=== PATIENT | female | born 1990 | race African-American/Black ===

== ENCOUNTER → 2016-06-19 | Outpatient (CLI) | payer OTHER | LOC: M WUC 15:23 | PROVIDERS: ATTEND Advanced Practice Midwife | DX: N76.6 Ulceration of vulva (principal) ==

== ENCOUNTER 2016-07-20 19:40 | Emergency (ER) | payer OTHER ==
[2016-07-20] MEDS ORDERED: ONDANSETRON 4MG/2ML VIAL (J2405) As Ordered ONE (20:08)
[2016-07-20 20:27] LABS: BASO % 0.5 % (0.0-1.0); EOS # 0.1 K/mm3 (0.0-0.50); LARGE UNSTAINED CELL # 0.3 K/mm3 (0.0-0.4); LYMPH # 2.5 K/mm3 (1.5-6.5); LYMPH % 28.8 % (24.0-44.0); MEAN CORPUSCULAR HEMOGLOBIN 29.6 pg (27.0-33.0); MEAN CORPUSCULAR HGB CONC 32.8 g/dl (32.0-36.5); MEAN CORPUSCULAR VOLUME 90.5 fl (80.0-96.0); MONO # 0.4 K/mm3 (0.0-0.8); MONO % 5.1 % (0.0-5.0); NEUTROPHILS # 5.3 K/mm3 (1.8-7.7); NEUTROPHILS % 61.4 % (36.0-66.0); PLATELET COUNT, AUTOMATED 208 k/mm3 (150-450); RED CELL DISTRIBUTION WIDTH 13.2 % (11.5-14.5); WHITE BLOOD COUNT 8.6 K/mm3 (4.0-10.0)
[2016-07-20] MEDS ORDERED: KETOROLAC 30 MG/ML VIAL (J1885) As Ordered ONE (20:44)
[2016-07-20 20:51] LABS: ALBUMIN 3.5 GM/DL (3.2-5.2); ALBUMIN/GLOBULIN RATIO 1.06 (1.00-1.93); ALKALINE PHOSPHATASE 66 U/L (45-117); ALT/SGPT 20 U/L (12-78); AMYLASE 65 U/L (25-115); ANION GAP 8 MEQ/L (8-16); AST/SGOT 15 U/L (15-37); BILIRUBIN,DIRECT < 0.1 MG/DL (0.0-0.2); BILIRUBIN,TOTAL 0.2 MG/DL (0.2-1.0); BLOOD UREA NITROGEN 8 MG/DL (7-18); CARBON DIOXIDE LEVEL 28 MEQ/L (21-32); CHLORIDE LEVEL 106 MEQ/L (98-107); CREATININE FOR GFR 0.92 MG/DL (0.55-1.02); GLOMERULAR FILTRATION RATE > 60.0 (>60); GLUCOSE, FASTING 87 MG/DL (70-105); POTASSIUM SERUM 3.8 MEQ/L (3.5-5.1); SODIUM LEVEL 142 MEQ/L (136-145); TOTAL PROTEIN 6.8 GM/DL (6.4-8.2)
--- NOTE | 2016-07-20 22:10 | REPUSA ---
CT of the abdomen and pelvis without contrast Clinical statement: Pain. Technique: Multiple axial CT images were obtained from the base of the lungs to the floor of the pelv is utilizing 5 mm axial slices without administration of contrast. Coronal and sagittal reconstructio ns were also obtained. No comparison is available. Findings: Chest: The visualized lung bases are clear. Abdomen: The kidneys are normal in size bilaterally. There is moderate right-sided hydronephrosis cau sed by a 4 mm obstructing stone at the right ureteropelvic junction. The liver, spleen, pancreas, gal lbladder and adrenal glands are unremarkable. The aorta demonstrates normal caliber and contour. Ther e is no abdominal lymphadenopathy or ascites. Pelvis: The bowel is unremarkable, with no obstructive or inflammatory changes. The appendix is mary l. The urinary bladder is within normal limits. There is no pelvic lymphadenopathy or ascites. The ot her pelvic structures appear unremarkable. Bones: There are no suspicious osseous abnormalities seen. Impression: Mild right-sided hydronephrosis caused by a 4 mm obstructing stone at the right ureterope lvic junction.
[2016-07-20] MEDS ORDERED: NORCO 5/325MG TABLET (BULK) As Ordered ONE (22:50)
--- NOTE | 2016-07-20 23:08 | EDDOCDS ---
Physician Documentation [facility] Name: Chen Mortensen Age: 26 yrs Sex: Female : 1990 Arrival Date: 07/20/2016 Time: 19:40 Bed I5 / M5 Private MD: Madison Disposition: 07/20/16 22:44 Discharged to Home/Self Care. Impression: Hydronephrosis with renal and ureteral calculous obstruction - right 4mm UPJ stone with mild hydronephrosis. - Condition is Stable. - Discharge Instructions: Kidney Stones. - Prescriptions for Ibuprofen 800 mg Oral Tablet - take 1 tablet by ORAL route every 8 hours As needed take with food; 30 tablet. [place] 5- 325 mg Oral Tablet - take 1 tablet by ORAL route every 6 hours As needed MDD: 4 tabs; 16 tablet. Flomax 0.4 mg Oral Capsule, Sust. Release 24 hr - take 1 capsule by ORAL route once daily 1/2 hour following the same meal each day; 15 capsule. ZOFRAN ODT 4 mg Oral - dissolve 1 tablet by ORAL route every 8 hours As needed do not chew, do not swallow whole; 10 tablet. - Medication Reconciliation, Local Pharmacy Hours form. - Follow up: Joycelyn Nunn MD; When: Call to arrange an appointment; Reason: Recheck today's complaints, Continuance of care. Follow up: Emergency Department; When: As needed; Reason: Worsening of conditions. - Problem is new. - Symptoms have improved. - Notes: call saturday for follow up appointment. drink plenty of fluids Historical: - Allergies: No known drug Allergies; - Home Meds: 1. control - PMHx: none; - PSHx: ; - Social history: Smoking status: Patient states was never smoker of tobacco. No barriers to communication noted, The patient speaks fluent Ugandan, Speaks appropriately for age. - Family history: Not pertinent. - : The pt / caregiver states he / she is not on anticoagulants. Home medication list is obtained from the patient. - Exposure Risk Screening:: None identified. 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 11 in. (149.86 cm) (R); Pain 9/10; 23:05 BP 112 / 71; Pulse 74; Resp 16; Temp 97.8; Pulse Ox 100% on R/A; Pain 2/10; ld5 19:42 Body Mass Index 23.83 (53.52 kg, 149.86 cm) gr2 MDM: 19:57 UCG by Nursing ordered. cz 19:58 Urinalysis Ordered. EDMS 19:58 Urine Culture Ordered. EDMS 20:03 Undress patient appropriately for examination ordered. ar2 20:03 IV Saline Lock ordered. ar2 20:03 Ondansetron 4 mg IVP once ordered. ar2 20:05 Amylase Ordered. EDMS 20:05 Basic Metabolic Profile Ordered. EDMS 20:05 CBC with Diff Ordered. EDMS 20:05 Lipase Ordered. EDMS 20:05 Liver Profile Ordered. EDMS 20:06 NOTHING BY MOUTH+DIET ordered. EDMS 20:42 ketorolac 30 mg IVP once ordered. ar2 20:52 Urinalysis Reviewed. ar2 20:52 CBC with Diff Reviewed. ar2 20:52 Amylase Reviewed. ar2 20:52 Basic Metabolic Profile Reviewed. ar2 20:52 Lipase Reviewed. ar2 20:52 Liver Profile Reviewed. ar2 20:53 NS 0.9% 1000 ml IV at bolus once ordered. ar2 20:53 CT ABD & PELVIS: No Contrast Ordered. EDMS 21:48 Financial registration complete. zo 22:25 [facility] Payment Agreement was scanned into [employer] and attached to record. zo 22:42 Dispense Urine Strainer ordered. ar2 22:47 HYDROcodone-acetaminophen 4 pack- 5 mg-325 mg 1 packets PO Per package directions; ar2 Dispense with patient. 1 po q4h prn for pain ordered. 22:48 CT ABD & PELVIS: No Contrast Reviewed. ar2 Point of Care Testing: Urine : 20:16 hCG Reading: Negative; Control Reading: Positive; cln Ranges: Administered Medications: 20:24 Drug: Ondansetron 4 mg [ondansetron HCl 2 mg/mL intravenous solution (2 mL)] Route: ld5 IVP; Site: left antecubital; 23:05 Follow up: Response: Nausea is decreased ld5 20:48 Drug: ketorolac 30 mg [ketorolac 30 mg/mL (1 mL) injection solution (1 mL)] Route: IVP; ld5 Site: left antecubital; 23:00 Follow up: Response: Med's dispensed home ld5 21:11 Drug: NS 0.9% 1000 ml [sodium chloride 0.9 % intravenous solution] Route: IV; Rate: ld5 bolus; Site: left antecubital; 22:59 Follow up: IV Status: Completed infusion; IV Intake: 1000ml ld5 22:59 Drug: HYDROcodone-acetaminophen 4 pack- 1 packets [hydrocodone 5 mg-acetaminophen 325 ld5 mg tablet (1 tabs)] {Co-Signature: [facility] (Nolvia Hurst RN).} Route: PO; 22:59 Follow up: Response: Med's dispensed home ld5 Signatures: Dispatcher [employer] Oleg Guardado RN RN cz Olin, Zoeann zo Robertshaw, Aaron, PA-C PA-Donny ar2 Alfreda Izaguirre RN RN ld5 Hafner, Jane, RN RN [facility] Nolvia Hurst RN [facility] The chart was reviewed and I authenticate all verbal orders and agree with the evaluation and treatment provided.Attachments: 22:25 [facility] Payment Agreement zo MTDD
--- NOTE | 2016-07-20 23:08 | EDDOCDS ---
Nurse's Notes [facility] Name: Chen Mortensen Age: 26 yrs Sex: Female : 1990 Arrival Date: 07/20/2016 Time: 19:40 Bed I5 / M5 Private MD: Madison Diagnosis: Hydronephrosis with renal and ureteral calculous obstruction-right 4mm UPJ stone with mild hydronephrosis Presentation: 07/20 19:50 Presenting complaint: Patient states: stomach pain since earlier today pain back side cz and worse now pt denies UTI symptoms. Acute neurological deficits are not present. Mechanism of Injury: No Mechanism of Injury. Adult Sepsis Screening: The patient does not have new or worsening altered mentation. Patient's respiratory rate is less than 22. Systolic blood pressure is greater than 100. Patient has a qSOFA score of 0- Negative Sepsis Screen. Suicide/Homicide risk assessment- the patient denies having any suicidal and/or homicidal ideations and does not present with any other emotional, behavioral or mental health complaints. Status: The patient is a dependent. Transition of care: patient was not received from another setting of care. 19:50 Acuity: JULIA Level 3 cz 19:50 Method Of Arrival: Walkin/Carried/Asstd cz Triage Assessment: 19:52 General: Appears uncomfortable. Pain: Location: back Pain currently is 8 out of 10 on a cz pain scale. Pt Declines HIV testing. 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 control - PMHx: none; - PSHx: ; - Social history: Smoking status: Patient states was never smoker of tobacco. No barriers to communication noted, The patient speaks fluent Upper Sorbian, Speaks appropriately for age. - Family history: Not pertinent. - : The pt / caregiver states he / she is not on anticoagulants. Home medication list is obtained from the patient. - Exposure Risk Screening:: None identified. Screenin:29 Screening information is obtained from the patient. Fall risk: No risks identified. cjh Assistance ADL's: requires no assistance with activities of daily living. Abuse/DV Screen: The patient / caregiver reports he/she is: not in a situation that causes fear, pain or injury. Nutritional screening: No deficits noted. Advance Directives: There is no active DNR order. home support is adequate. Assessment: 20:29 General: Appears in no apparent distress, comfortable, Behavior is appropriate for age, cjh cooperative. Pain: Location: posterior aspect of right lateral abdomen and anterior aspect of right lateral abdomen Pain currently is 8 out of 10 on a pain scale. Respiratory: Airway is patent Respiratory effort is even, unlabored, Respiratory pattern is regular, symmetrical. GI: Abdomen is non- distended Bowel sounds present X 4 quads. Abd is soft and non tender X 4 quads. Musculoskeletal: Range of motion intact in all extremities. 21:10 General: Pt laying in bed talking on phone. States "I feel so much better". Bolus ld5 started per orders. Will continue to monitor. 21:53 General: returned from CT, tolerated well, awaiting results, friends at bedside, will [facility] continue to monitor. 22:36 General: Pt ambulated to bathroom. Tolerated well. Reports minimal pain. Resting ld5 comfortably in bed. Friends at bedside. Will continue to monitor. 23:05 General: Appears in no apparent distress, Behavior is cooperative. Pain: Pain currently ld5 is 2 out of 10 on a pain scale. Neurological: Level of Consciousness is awake, alert. Respiratory: Airway is patent Respiratory effort is even, unlabored. Vital Signs: 19:42 BP 107 / 71; Pulse 72; Resp 18 S; Temp 97.9(O); Pulse Ox 99% on R/A; Weight 53.52 kg gr2 (R); Height 4 ft. 11 in. (149.86 cm) (R); Pain 9/10; 23:05 BP 112 / 71; Pulse 74; Resp 16; Temp 97.8; Pulse Ox 100% on R/A; Pain 2/10; ld5 19:42 Body Mass Index 23.83 (53.52 kg, 149.86 cm) gr2 Vitals: 19:42 Log In Time: July 20, 2016 at 19:42. gr2 ED Course: 19:42 Patient visited by Albina Brock. gr2 19:42 Madison is Private Physician. gr2 19:42 Patient moved to Waiting gr2 19:44 Patient visited by Albina Brock. gr2 19:44 Patient moved to Pre RCE gr2 19:51 Triage Initiated cz 19:55 [facility] Lion [facility] ar2 19:55 Patient moved to Triage 2 cz 19:56 Matthew Posada DO is Attending Physician. ar2 19:56 Patient visited by Trino Lion PA-C. ar2 20:06 Patient moved to I5 / M5 cz 20:16 Patient visited by Latha Shah PCA. cln 20:16 Urinalysis Sent. cln 20:16 Urine Culture Sent. cln 20:29 The patient / caregiver is instructed regarding the plan of care and ED course. [facility] 20:29 Inserted saline lock: 20 gauge in left antecubital area and blood collected. No [facility] procedures done that require assistance. Labs drawn. (by ED staff). Sent per order to lab. 20:48 Patient visited by Alfreda Izaguirre RN. ld5 21:11 Patient visited by Alfreda Izaguirre RN. ld5 21:54 Patient visited by Nolvia Hurst RN. cjh 22:12 CT ABD & PELVIS: No Contrast Returned. EDMS 22:25 [facility] Payment Agreement was scanned into [employer] and attached to record. zo 22:37 Patient visited by Alfreda Izaguirre RN. ld5 22:43 Joycelyn Nunn MD is Referral Physician. ar2 23:05 Discontinued lock intact, bleeding controlled, pressure dressing applied, No ld5 redness/swelling at site. 23:07 Patient visited by Alfreda Izaguirre RN. ld5 Administered Medications: 20:24 Drug: Ondansetron 4 mg [ondansetron HCl 2 mg/mL intravenous solution (2 mL)] Route: ld5 IVP; Site: left antecubital; 23:05 Follow up: Response: Nausea is decreased ld5 20:48 Drug: ketorolac 30 mg [ketorolac 30 mg/mL (1 mL) injection solution (1 mL)] Route: IVP; ld5 Site: left antecubital; 23:00 Follow up: Response: Med's dispensed home ld5 21:11 Drug: NS 0.9% 1000 ml [sodium chloride 0.9 % intravenous solution] Route: IV; Rate: ld5 bolus; Site: left antecubital; 22:59 Follow up: IV Status: Completed infusion; IV Intake: 1000ml ld5 22:59 Drug: HYDROcodone-acetaminophen 4 pack- 1 packets [hydrocodone 5 mg-acetaminophen 325 ld5 mg tablet (1 tabs)] {Co-Signature: [facility] (Nolvia Hurst RN).} Route: PO; 22:59 Follow up: Response: Med's dispensed home ld5 Point of Care Testing: Urine : 20:16 hCG Reading: Negative; Control Reading: Positive; cln Ranges: Intake: 22:59 IV: 1000.00ml; Total: 1000.00ml. ld5 Order Results: Lab Order: Urinalysis; SPEC'M 07/20/16 19:58 Test: APPEARANCE, URINE; Value: CLEAR; Range: CLEAR; Status: F Test: COLOR, URINE; Value: YELLOW; Range: YELLOW; Status: F Test: PH,URINE; Value: 8.0; Range: 5.0-9.0; Units: UNITS; Status: F Test: SPECIFIC GRAVITY URINE AUTO; Value: 1.018; Range: 1.002-1.035; Status: F Test: PROTEIN, URINE AUTO; Value: 1+; Range: NEGATIVE; Abnormal: Above high normal; Units: mg/dL; Status: F Test: GLUCOSE, URINE (UA) AUTO; Value: NEGATIVE; Range: NEGATIVE; Units: mg/dL; Status: F Test: KETONE, URINE AUTO; Value: NEGATIVE; Range: NEGATIVE; Units: mg/dL; Status: F Test: UROBILINOGEN, URINE AUTO; Value: 0.2; Range: 0.0-2.0; Units: mg/dL; Status: F Test: BILIRUBIN, URINE AUTO; Value: NEGATIVE; Range: NEGATIVE; Status: F Test: NITRITE, URINE AUTO; Value: NEGATIVE; Range: NEGATIVE; Status: F Test: LEUKOCYTE ESTERASE, URINE AUTO; Value: TRACE; Range: NEGATIVE; Abnormal: Above high normal; Status: F Test: BLOOD, URINE BLOOD; Value: 3+; Range: NEGATIVE; Abnormal: Above high normal; Status: F Test: WBC, URINE AUTO; Value: 13; Range: 0-3; Abnormal: Above high normal; Units: /HPF; Status: F Test: RBC, URINE AUTO; Value: TNTC; Range: 0-3; Abnormal: Above high normal; Units: /HPF; Status: F Test: BACTERIA, URINE AUTO; Value: 1+; Range: NEGATIVE; Abnormal: Above high normal; Status: F Test: SQUAMOUS EPITHELIAL CELL UR AU; Value: 1; Range: 0-6; Units: /HPF; Status: F Test: MUCUS, URINE; Value: SMALL; Range: NEGATIVE; Status: F Test: HYALINE CAST, URINE AUTO; Value: 0; Range: 0-1; Units: /LPF; Status: F Test: AMORPHOUS SEDIMENT; Value: SMALL; Range: NEGATIVE; Abnormal: Above high normal; Status: F Lab Order: Amylase; SPEC'M 07/20/16 20:19 Test: AMYLASE; Value: 65; Range: 25-115; Units: U/L; Status: F Lab Order: Basic Metabolic Profile; SPEC' 07/20/16 20:19 Test: GLUCOSE, FASTING; Value: 87; Range: 70-105; Units: MG/DL; Status: F Test: BLOOD UREA NITROGEN; Value: 8; Range: 7-18; Units: MG/DL; Status: F Test: CREATININE FOR GFR; Value: 0.92; Range: 0.55-1.02; Units: MG/DL; Status: F Test: GLOMERULAR FILTRATION RATE; Value: > 60.0; Range: >60; Status: F Test: SODIUM LEVEL; Value: 142; Range: 136-145; Units: MEQ/L; Status: F Test: POTASSIUM SERUM; Value: 3.8; Range: 3.5-5.1; Units: MEQ/L; Status: F Test: CHLORIDE LEVEL; Value: 106; Range: 98-107; Units: MEQ/L; Status: F Test: CARBON DIOXIDE LEVEL; Value: 28; Range: 21-32; Units: MEQ/L; Status: F Test: ANION GAP; Value: 8; Range: 8-16; Units: MEQ/L; Status: F Test: CALCIUM LEVEL; Value: 9.0; Range: 8.5-10.1; Units: MG/DL; Status: F Test Note: ; Units are mL/min/1.73 m2 Chronic Kidney Disease Staging per NKF: Stage I & II GFR >=60 Normal to Mildly Decreased Stage III GFR 30-59 Moderately Decreased Stage IV GFR 15-29 Severely Decreased Stage V GFR <15 Very Little GFR Left ESRD GFR <15 on BOOKKEEPING SERVICE SALES AGENT Lab Order: CBC with Diff; SPEC'M 07/20/16 20:19 Test: WHITE BLOOD COUNT; Value: 8.6; Range: 4.0-10.0; Units: K/mm3; Status: F Test: RED BLOOD COUNT; Value: 4.67; Range: 4.00-5.40; Units: M/mm3; Status: F Test: HEMOGLOBIN; Value: 13.8; Range: 12.0-16.0; Units: g/dl; Status: F Test: HEMATOCRIT; Value: 42.3; Range: 36.0-47.0; Units: %; Status: F Test: MEAN CORPUSCULAR VOLUME; Value: 90.5; Range: 80.0-96.0; Units: fl; Status: F Test: MEAN CORPUSCULAR HEMOGLOBIN; Value: 29.6; Range: 27.0-33.0; Units: pg; Status: F Test: MEAN CORPUSCULAR HGB CONC; Value: 32.8; Range: 32.0-36.5; Units: g/dl; Status: F Test: RED CELL DISTRIBUTION WIDTH; Value: 13.2; Range: 11.5-14.5; Units: %; Status: F Test: PLATELET COUNT, AUTOMATED; Value: 208; Range: 150-450; Units: k/mm3; Status: F Test: NEUTROPHILS %; Value: 61.4; Range: 36.0-66.0; Units: %; Status: F Test: LYMPH %; Value: 28.8; Range: 24.0-44.0; Units: %; Status: F Test: MONO %; Value: 5.1; Range: 0.0-5.0; Abnormal: Above high normal; Units: %; Status: F Test: EOS %; Value: 1.0; Range: 0.0-3.0; Units: %; Status: F Test: BASO %; Value: 0.5; Range: 0.0-1.0; Units: %; Status: F Test: LARGE UNSTAINED CELL %; Value: 3.0; Range: 0.0-4.0; Units: %; Status: F Test: NEUTROPHILS #; Value: 5.3; Range: 1.8-7.7; Units: K/mm3; Status: F Test: LYMPH #; Value: 2.5; Range: 1.5-6.5; Units: K/mm3; Status: F Test: MONO #; Value: 0.4; Range: 0.0-0.8; Units: K/mm3; Status: F Test: EOS #; Value: 0.1; Range: 0.0-0.50; Units: K/mm3; Status: F Test: BASO #; Value: 0.0; Range: 0.0-0.2; Units: K/mm3; Status: F Test: LARGE UNSTAINED CELL #; Value: 0.3; Range: 0.0-0.4; Units: K/mm3; Status: F Lab Order: Lipase; SPEC' 07/20/16 20:19 Test: LIPASE; Value: 96; Range: 73-393; Units: U/L; Status: F Lab Order: Liver Profile; [facility]' 07/20/16 20:19 Test: AST/SGOT; Value: 15; Range: 15-37; Units: U/L; Status: F Test: ALT/SGPT; Value: 20; Range: 12-78; Units: U/L; Status: F Test: ALKALINE PHOSPHATASE; Value: 66; Range: 45-117; Units: U/L; Status: F Test: BILIRUBIN,TOTAL; Value: 0.2; Range: 0.2-1.0; Units: MG/DL; Status: F Test: BILIRUBIN,DIRECT; Value: < 0.1; Range: 0.0-0.2; Units: MG/DL; Status: F Test: TOTAL PROTEIN; Value: 6.8; Range: 6.4-8.2; Units: GM/DL; Status: F Test: ALBUMIN; Value: 3.5; Range: 3.2-5.2; Units: GM/DL; Status: F Test: ALBUMIN/GLOBULIN RATIO; Value: 1.06; Range: 1.00-1.93; Status: F Radiology Order: CT ABD & PELVIS: No Contrast Test: CT ABD & PELVIS: No Contrast REASON FOR EXAMINATION: right renal colic; ; CT of the abdomen and pelvis without contrast; Clinical statement: Pain.; Technique: Multiple axial CT images were obtained from the base of the lungs to the floor of the pelv; is utilizing 5 mm axial slices without administration of contrast. Coronal and sagittal reconstructio; ns were also obtained.; No comparison is available.; Findings:; Chest: The visualized lung bases are clear.; Abdomen: The kidneys are normal in size bilaterally. There is moderate right-sided hydronephrosis cau; sed by a 4 mm obstructing stone at the right ureteropelvic junction. The liver, spleen, pancreas, gal; lbladder and adrenal glands are unremarkable. The aorta demonstrates normal caliber and contour. Ther; e is no abdominal lymphadenopathy or ascites.; Pelvis: The bowel is unremarkable, with no obstructive or inflammatory changes. The appendix is mary; l. The urinary bladder is within normal limits. There is no pelvic lymphadenopathy or ascites. The ot; her pelvic structures appear unremarkable.; Bones: There are no suspicious osseous abnormalities seen.; Impression: Mild right-sided hydronephrosis caused by a 4 mm obstructing stone at the right ureterope; lvic junction.; ; Outcome: 22:44 Discharge ordered by Provider. ar2 23:05 Discharge Assessment: Patient awake, alert and oriented x 3. No cognitive and/or ld5 functional deficits noted. Patient verbalized understanding of disposition instructions. patient administered narcotics - no. The following High Risk Discharge criteria are identified: None. Discharged to home ambulatory, with friend. Condition: stable. Discharge instructions given to patient, Instructed on discharge instructions, follow up and referral plans. medication usage, no driving heavy equipment, Demonstrated understanding of instructions, medications, Pt was receptive of discharge instructions/ teaching. Prescriptions given X 4. CT Study completed. Property :Personal belongings accompany Pt. 23:07 Patient left the ED. ld5 Signatures: Dispatcher [employer] EDMS Oleg Siddiqui, Krishna Jacobs RN, Aaron, RACHAEL CANO ar2 Alfreda Izaguirre RN RN ld5 Nolvia Hurst,DAVIDE RN [facility] Albina Brock gr2 Latha Shah, VACUUM CLEANER REPAIRER VACUUM CLEANER REPAIRER cln Nolvia Hurst RN [facility] MTDD
--- NOTE | 2016-07-23 00:08 | EDDOCDS ---
Physician Documentation [facility] Name: Chen Mortensen Age: 26 yrs Sex: Female : 1990 Arrival Date: 07/20/2016 Time: 19:40 Bed I5 / M5 Private MD: [place] Disposition: 07/20/16 22:44 Discharged to Home/Self Care. Impression: Hydronephrosis with renal and ureteral calculous obstruction - right 4mm UPJ stone with mild hydronephrosis. - Condition is Stable. - Discharge Instructions: Kidney Stones. - Prescriptions for Ibuprofen 800 mg Oral Tablet - take 1 tablet by ORAL route every 8 hours As needed take with food; 30 tablet. Transfer 5- 325 mg Oral Tablet - take 1 tablet by ORAL route every 6 hours As needed MDD: 4 tabs; 16 tablet. Flomax 0.4 mg Oral Capsule, Sust. Release 24 hr - take 1 capsule by ORAL route once daily 1/2 hour following the same meal each day; 15 capsule. ZOFRAN ODT 4 mg Oral - dissolve 1 tablet by ORAL route every 8 hours As needed do not chew, do not swallow whole; 10 tablet. - Medication Reconciliation, Local Pharmacy Hours form. - Follow up: Joycelyn Nunn MD; When: Call to arrange an appointment; Reason: Recheck today's complaints, Continuance of care. Follow up: Emergency Department; When: As needed; Reason: Worsening of conditions. - Problem is new. - Symptoms have improved. - Notes: call saturday for follow up appointment. drink plenty of fluids Historical: - Allergies: No known drug Allergies; - Home Meds: 1. control - PMHx: none; - PSHx: ; - Social history: Smoking status: Patient states was never smoker of tobacco. No barriers to communication noted, The patient speaks fluent [place], Speaks appropriately for age. - Family history: Not pertinent. - : The pt / caregiver states he / she is not on anticoagulants. Home medication list is obtained from the patient. - Exposure Risk Screening:: None identified. 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 11 in. (149.86 cm) (R); Pain 9/10; 23:05 BP 112 / 71; Pulse 74; Resp 16; Temp 97.8; Pulse Ox 100% on R/A; Pain 2/10; ld5 19:42 Body Mass Index 23.83 (53.52 kg, 149.86 cm) gr2 MDM: 19:57 UCG by Nursing ordered. cz 19:58 Urinalysis Ordered. EDMS 19:58 Urine Culture Ordered. EDMS 20:03 Undress patient appropriately for examination ordered. ar2 20:03 IV Saline Lock ordered. ar2 20:03 Ondansetron 4 mg IVP once ordered. ar2 20:05 Amylase Ordered. EDMS 20:05 Basic Metabolic Profile Ordered. EDMS 20:05 CBC with Diff Ordered. EDMS 20:05 Lipase Ordered. EDMS 20:05 Liver Profile Ordered. EDMS 20:06 NOTHING BY MOUTH+DIET ordered. EDMS 20:42 ketorolac 30 mg IVP once ordered. ar2 20:52 Urinalysis Reviewed. ar2 20:52 CBC with Diff Reviewed. ar2 20:52 Amylase Reviewed. ar2 20:52 Basic Metabolic Profile Reviewed. ar2 20:52 Lipase Reviewed. ar2 20:52 Liver Profile Reviewed. ar2 20:53 NS 0.9% 1000 ml IV at bolus once ordered. ar2 20:53 CT ABD & PELVIS: No Contrast Ordered. EDMS 21:48 Financial registration complete. zo 22:25 [facility] [place] [facility] Payment Agreement was scanned into [employer] and attached to record. zo 22:42 Dispense Urine Strainer ordered. ar2 22:47 HYDROcodone-acetaminophen 4 pack- 5 mg-325 mg 1 packets PO Per package directions; ar2 Dispense with patient. 1 po q4h prn for pain ordered. 22:48 CT ABD & PELVIS: No Contrast Reviewed. ar2 07/21 11:30 T-Sheet-- Draft Copy was scanned into [employer] and attached to record. gb 11:30 Radiology Report was scanned into [employer] and attached to record. gb Point of Care Testing: Urine : 07/20 20:16 hCG Reading: Negative; Control Reading: Positive; cln Ranges: Administered Medications: 20:24 Drug: Ondansetron 4 mg [ondansetron HCl 2 mg/mL intravenous solution (2 mL)] Route: ld5 IVP; Site: left antecubital; 23:05 Follow up: Response: Nausea is decreased ld5 20:48 Drug: ketorolac 30 mg [ketorolac 30 mg/mL (1 mL) injection solution (1 mL)] Route: IVP; ld5 Site: left antecubital; 23:00 Follow up: Response: Med's dispensed home ld5 21:11 Drug: NS 0.9% 1000 ml [sodium chloride 0.9 % intravenous solution] Route: IV; Rate: ld5 bolus; Site: left antecubital; 22:59 Follow up: IV Status: Completed infusion; IV Intake: 1000ml ld5 22:59 Drug: HYDROcodone-acetaminophen 4 pack- 1 packets [hydrocodone 5 mg-acetaminophen 325 ld5 mg tablet (1 tabs)] {Co-Signature: [facility] (Nolvia Hurst RN).} Route: PO; 22:59 Follow up: Response: Med's dispensed home ld5 Signatures: Dispatcher [employer] EDMS Oleg Siddiqui RN RN cz Mary Morton, Reg Reg gb Krishna Reilly Aaron, PA-C PA-C ar2 Alfreda Izaguirre RN RN [facility] Nolvia Hurst RN RN [facility] Nolvia Hurst RN [facility] The chart was reviewed and I authenticate all verbal orders and agree with the evaluation and treatment provided.Attachments: 22:25 [facility] Payment Agreement zo 07/21 11:30 T-Sheet-- Draft Copy gb Chart Complete MTDD
--- NOTE | 2016-07-23 00:08 | EDDOCDS ---
Physician Documentation [facility] Name: Chen Mortensen Age: 26 yrs Sex: Female : 1990 Arrival Date: 07/20/2016 Time: 19:40 Bed I5 / M5 Private MD: [place] Disposition: 07/20/16 22:44 Discharged to Home/Self Care. Impression: Hydronephrosis with renal and ureteral calculous obstruction - right 4mm UPJ stone with mild hydronephrosis. - Condition is Stable. - Discharge Instructions: Kidney Stones. - Prescriptions for Ibuprofen 800 mg Oral Tablet - take 1 tablet by ORAL route every 8 hours As needed take with food; 30 tablet. [place] 5- 325 mg Oral Tablet - take 1 tablet by ORAL route every 6 hours As needed MDD: 4 tabs; 16 tablet. Flomax 0.4 mg Oral Capsule, Sust. Release 24 hr - take 1 capsule by ORAL route once daily 1/2 hour following the same meal each day; 15 capsule. ZOFRAN ODT 4 mg Oral - dissolve 1 tablet by ORAL route every 8 hours As needed do not chew, do not swallow whole; 10 tablet. - Medication Reconciliation, Local Pharmacy Hours form. - Follow up: Joycelyn Nunn MD; When: Call to arrange an appointment; Reason: Recheck today's complaints, Continuance of care. Follow up: Emergency Department; When: As needed; Reason: Worsening of conditions. - Problem is new. - Symptoms have improved. - Notes: call saturday for follow up appointment. drink plenty of fluids Historical: - Allergies: No known drug Allergies; - Home Meds: 1. control - PMHx: none; - PSHx: ; - Social history: Smoking status: Patient states was never smoker of tobacco. No barriers to communication noted, The patient speaks fluent Syri[place], Speaks appropriately for age. - Family history: Not pertinent. - : The pt / caregiver states he / she is not on anticoagulants. Home medication list is obtained from the patient. - Exposure Risk Screening:: None identified. 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 11 in. (149.86 cm) (R); Pain 9/10; 23:05 BP 112 / 71; Pulse 74; Resp 16; Temp 97.8; Pulse Ox 100% on R/A; Pain 2/10; ld5 19:42 Body Mass Index 23.83 (53.52 kg, 149.86 cm) gr2 MDM: 19:57 UCG by Nursing ordered. cz 19:58 Urinalysis Ordered. EDMS 19:58 Urine Culture Ordered. EDMS 20:03 Undress patient appropriately for examination ordered. ar2 20:03 IV Saline Lock ordered. ar2 20:03 Ondansetron 4 mg IVP once ordered. ar2 20:05 Amylase Ordered. EDMS 20:05 Basic Metabolic Profile Ordered. EDMS 20:05 CBC with Diff Ordered. EDMS 20:05 Lipase Ordered. EDMS 20:05 Liver Profile Ordered. EDMS 20:06 NOTHING BY MOUTH+DIET ordered. EDMS 20:42 ketorolac 30 mg IVP once ordered. ar2 20:52 Urinalysis Reviewed. ar2 20:52 CBC with Diff Reviewed. ar2 20:52 Amylase Reviewed. ar2 20:52 Basic Metabolic Profile Reviewed. ar2 20:52 Lipase Reviewed. ar2 20:52 Liver Profile Reviewed. ar2 20:53 NS 0.9% 1000 ml IV at bolus once ordered. ar2 20:53 CT ABD & PELVIS: No Contrast Ordered. EDMS 21:48 Financial registration complete. zo 22:25 [facility] Payment Agreement was scanned into [employer] and attached to record. zo 22:42 Dispense Urine Strainer ordered. ar2 22:47 HYDROcodone-acetaminophen 4 pack- 5 mg-325 mg 1 packets PO Per package directions; ar2 Dispense with patient. 1 po q4h prn for pain ordered. 22:48 CT ABD & PELVIS: No Contrast Reviewed. ar2 07/21 11:30 T-Sheet-- Draft Copy was scanned into [employer] and attached to record. gb 11:30 Radiology Report was scanned into [employer] and attached to record. gb Point of Care Testing: Urine : 07/20 20:16 hCG Reading: Negative; Control Reading: Positive; cln Ranges: Administered Medications: 20:24 Drug: Ondansetron 4 mg [ondansetron HCl 2 mg/mL intravenous solution (2 mL)] Route: ld5 IVP; Site: left antecubital; 23:05 Follow up: Response: Nausea is decreased ld5 20:48 Drug: ketorolac 30 mg [ketorolac 30 mg/mL (1 mL) injection solution (1 mL)] Route: IVP; ld5 Site: left antecubital; 23:00 Follow up: Response: Med's dispensed home ld5 21:11 Drug: NS 0.9% 1000 ml [sodium chloride 0.9 % intravenous solution] Route: IV; Rate: ld5 bolus; Site: left antecubital; 22:59 Follow up: IV Status: Completed infusion; IV Intake: 1000ml ld5 22:59 Drug: HYDROcodone-acetaminophen 4 pack- 1 packets [hydrocodone 5 mg-acetaminophen 325 ld5 mg tablet (1 tabs)] {Co-Signature: [facility] (Nolvia Hurst RN).} Route: PO; 22:59 Follow up: Response: Med's dispensed home ld5 Signatures: Dispatcher [employer] EDMS Oleg iSddiqui RN RN cz Mary Morton, Reg Reg gb Krishna Reilly Aaron, PA-C PA-C ar2 Alfreda Izaguirre RN RN [facility] Nolvia Hurst RN RN [facility] Nolvia Hurst RN [facility] The chart was reviewed and I authenticate all verbal orders and agree with the evaluation and treatment provided.Attachments: 22:25 [facility] Payment Agreement zo 07/21 11:30 T-Sheet-- Draft Copy gb Chart Complete MTDD
--- NOTE | 2016-07-23 00:08 | EDDOCDS ---
Nurse's Notes [facility] Name: Chen Mortensen Age: 26 yrs Sex: Female : 1990 Arrival Date: 07/20/2016 Time: 19:40 Bed I5 / M5 Private MD: Madison Diagnosis: Hydronephrosis with renal and ureteral calculous obstruction-right 4mm UPJ stone with mild hydronephrosis Presentation: 07/20 19:50 Presenting complaint: Patient states: stomach pain since earlier today pain back side cz and worse now pt denies UTI symptoms. Acute neurological deficits are not present. Mechanism of Injury: No Mechanism of Injury. Adult Sepsis Screening: The patient does not have new or worsening altered mentation. Patient's respiratory rate is less than 22. Systolic blood pressure is greater than 100. Patient has a qSOFA score of 0- Negative Sepsis Screen. Suicide/Homicide risk assessment- the patient denies having any suicidal and/or homicidal ideations and does not present with any other emotional, behavioral or mental health complaints. Status: The patient is a dependent. Transition of care: patient was not received from another setting of care. 19:50 Acuity: JULIA Level 3 cz 19:50 Method Of Arrival: Walkin/Carried/Asstd cz Triage Assessment: 19:52 General: Appears uncomfortable. Pain: Location: back Pain currently is 8 out of 10 on a cz pain scale. Pt Declines HIV testing. 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 control - PMHx: none; - PSHx: ; - Social history: Smoking status: Patient states was never smoker of tobacco. No barriers to communication noted, The patient speaks fluent Greenlandic, Speaks appropriately for age. - Family history: Not pertinent. - : The pt / caregiver states he / she is not on anticoagulants. Home medication list is obtained from the patient. - Exposure Risk Screening:: None identified. Screenin:29 Screening information is obtained from the patient. Fall risk: No risks identified. cjh Assistance ADL's: requires no assistance with activities of daily living. Abuse/DV Screen: The patient / caregiver reports he/she is: not in a situation that causes fear, pain or injury. Nutritional screening: No deficits noted. Advance Directives: There is no active DNR order. home support is adequate. Assessment: 20:29 General: Appears in no apparent distress, comfortable, Behavior is appropriate for age, cjh cooperative. Pain: Location: posterior aspect of right lateral abdomen and anterior aspect of right lateral abdomen Pain currently is 8 out of 10 on a pain scale. Respiratory: Airway is patent Respiratory effort is even, unlabored, Respiratory pattern is regular, symmetrical. GI: Abdomen is non- distended Bowel sounds present X 4 quads. Abd is soft and non tender X 4 quads. Musculoskeletal: Range of motion intact in all extremities. 21:10 General: Pt laying in bed talking on phone. States "I feel so much better". Bolus ld5 started per orders. Will continue to monitor. 21:53 General: returned from CT, tolerated well, awaiting results, friends at bedside, will [facility] continue to monitor. 22:36 General: Pt ambulated to bathroom. Tolerated well. Reports minimal pain. Resting ld5 comfortably in bed. Friends at bedside. Will continue to monitor. 23:05 General: Appears in no apparent distress, Behavior is cooperative. Pain: Pain currently ld5 is 2 out of 10 on a pain scale. Neurological: Level of Consciousness is awake, alert. Respiratory: Airway is patent Respiratory effort is even, unlabored. Vital Signs: 19:42 BP 107 / 71; Pulse 72; Resp 18 S; Temp 97.9(O); Pulse Ox 99% on R/A; Weight 53.52 kg gr2 (R); Height 4 ft. 11 in. (149.86 cm) (R); Pain 9/10; 23:05 BP 112 / 71; Pulse 74; Resp 16; Temp 97.8; Pulse Ox 100% on R/A; Pain 2/10; ld5 19:42 Body Mass Index 23.83 (53.52 kg, 149.86 cm) gr2 Vitals: 19:42 Log In Time: July 20, 2016 at 19:42. gr2 ED Course: 19:42 Patient visited by Albina Brock. gr2 19:42 Madison is Private Physician. gr2 19:42 Patient moved to Waiting gr2 19:44 Patient visited by Albina Brock. gr2 19:44 Patient moved to Pre RCE gr2 19:51 Triage Initiated cz 19:55 [facility] ar2 19:55 Patient moved to Triage 2 cz 19:56 Matthew Posada DO is Attending Physician. ar2 19:56 Patient visited by Trino Lion PA-C. ar2 20:06 Patient moved to I5 / M5 cz 20:16 Patient visited by Latha Shah PCA. cln 20:16 Urinalysis Sent. cln 20:16 Urine Culture Sent. cln 20:29 The patient / caregiver is instructed regarding the plan of care and ED course. [facility] 20:29 Inserted saline lock: 20 gauge in left antecubital area and blood collected. No [facility] procedures done that require assistance. Labs drawn. (by ED staff). Sent per order to lab. 20:48 Patient visited by Alfreda Izaguirre RN. ld5 21:11 Patient visited by Alfreda Izaguirre RN. ld5 21:54 Patient visited by Nolvia Hurst RN. cjh 22:12 CT ABD & PELVIS: No Contrast Returned. EDMS 22:25 [facility] [place] Agreement was scanned into Wish[employer] and attached to record. zo 22:37 Patient visited by Alfreda Izaguirre RN. ld5 22:43 Joycelyn Nunn MD is Referral Physician. ar2 23:05 Discontinued lock intact, bleeding controlled, pressure dressing applied, No ld5 redness/swelling at site. 23:07 Patient visited by Alfreda Izaguirre RN. ld5 07/21 11:30 T-Sheet-- Draft Copy was scanned into Wishabi and attached to record. gb 11:30 Radiology Report was scanned into Wishabi and attached to record. gb Administered Medications: 07/20 20:24 Drug: Ondansetron 4 mg [ondansetron HCl 2 mg/mL intravenous solution (2 mL)] Route: ld5 IVP; Site: left antecubital; 23:05 Follow up: Response: Nausea is decreased ld5 20:48 Drug: ketorolac 30 mg [ketorolac 30 mg/mL (1 mL) injection solution (1 mL)] Route: IVP; ld5 Site: left antecubital; 23:00 Follow up: Response: Med's dispensed home ld5 21:11 Drug: NS 0.9% 1000 ml [sodium chloride 0.9 % intravenous solution] Route: IV; Rate: ld5 bolus; Site: left antecubital; 22:59 Follow up: IV Status: Completed infusion; IV Intake: 1000ml ld5 22:59 Drug: HYDROcodone-acetaminophen 4 pack- 1 packets [hydrocodone 5 mg-acetaminophen 325 ld5 mg tablet (1 tabs)] {Co-Signature: [facility] (Nolvia Hurst RN).} Route: PO; 22:59 Follow up: Response: Med's dispensed home ld5 Point of Care Testing: Urine : 20:16 hCG Reading: Negative; Control Reading: Positive; cln Ranges: Intake: 22:59 IV: 1000.00ml; Total: 1000.00ml. ld5 Order Results: Lab Order: Urine Culture; SPEC'M 07/20/16 19:58 Test: URINE CULTURE; Value: <EXTERNAL COMMENT eCWMed> FULL REPORT IN LAB NOTES (eCW and Medent).; Status: F Test: URINE CULTURE; Value: ORGANISM 1: PROTEUS MIRABILIS; Status: F Test: URINE CULTURE; Value: PROTEUS MIRABILIS; Status: F Test: URINE CULTURE; Value: COLONY COUNT CFU/ml >100,000; Status: F Test: URINE CULTURE; Value: GRAM NEG SENSI - VITEK 80; Status: F Test: URINE CULTURE; Value: Method: VIT2; Status: F Test: URINE CULTURE; Value: TRIMETHOPRIM/SULFAMETHOXAZOLE >=320 R; Status: F Test: URINE CULTURE; Value: AMPICILLIN <=2 S; Status: F Test: URINE CULTURE; Value: GENTAMICIN <=1 S; Status: F Test: URINE CULTURE; Value: NITROFURANTOIN 128 R; Status: F Test: URINE CULTURE; Value: CEFAZOLIN <=4 S; Status: F Test: URINE CULTURE; Value: LEVOFLOXACIN <=0.12 S; Status: F Test: URINE CULTURE; Value: TOBRAMYCIN <=1 S; Status: F Test: URINE CULTURE; Value: CEFTRIAXONE <=1 S; Status: F Test: URINE CULTURE; Value: CEFTAZIDIME <=1 S; Status: F Test: URINE CULTURE; Value: AMPICILLIN/SULBACTAM <=2 S; Status: F Test: URINE CULTURE; Value: PIPERACILLIN/TAZOBACTAM <=4 S; Status: F Test: URINE CULTURE; Value: AZTREONAM <=1 S; Status: F Test: URINE CULTURE; Value: ERTAPENEM <=0.5 S; Status: F Test: URINE CULTURE; Value: MEROPENEM <=0.25 S; Status: F Test: URINE CULTURE; Value: TIGECYCLINE 4 R; Status: F Test: URINE CULTURE; Value: CEFEPIME <=1 S; Status: F Lab Order: Urinalysis; SPEC'M 07/20/16 19:58 Test: APPEARANCE, URINE; Value: CLEAR; Range: CLEAR; Status: F Test: COLOR, URINE; Value: YELLOW; Range: YELLOW; Status: F Test: PH,URINE; Value: 8.0; Range: 5.0-9.0; Units: UNITS; Status: F Test: SPECIFIC GRAVITY URINE AUTO; Value: 1.018; Range: 1.002-1.035; Status: F Test: PROTEIN, URINE AUTO; Value: 1+; Range: NEGATIVE; Abnormal: Above high normal; Units: mg/dL; Status: F Test: GLUCOSE, URINE (UA) AUTO; Value: NEGATIVE; Range: NEGATIVE; Units: mg/dL; Status: F Test: KETONE, URINE AUTO; Value: NEGATIVE; Range: NEGATIVE; Units: mg/dL; Status: F Test: UROBILINOGEN, URINE AUTO; Value: 0.2; Range: 0.0-2.0; Units: mg/dL; Status: F Test: BILIRUBIN, URINE AUTO; Value: NEGATIVE; Range: NEGATIVE; Status: F Test: NITRITE, URINE AUTO; Value: NEGATIVE; Range: NEGATIVE; Status: F Test: LEUKOCYTE ESTERASE, URINE AUTO; Value: TRACE; Range: NEGATIVE; Abnormal: Above high normal; Status: F Test: BLOOD, URINE BLOOD; Value: 3+; Range: NEGATIVE; Abnormal: Above high normal; Status: F Test: WBC, URINE AUTO; Value: 13; Range: 0-3; Abnormal: Above high normal; Units: /HPF; Status: F Test: RBC, URINE AUTO; Value: TNTC; Range: 0-3; Abnormal: Above high normal; Units: /HPF; Status: F Test: BACTERIA, URINE AUTO; Value: 1+; Range: NEGATIVE; Abnormal: Above high normal; Status: F Test: SQUAMOUS EPITHELIAL CELL UR AU; Value: 1; Range: 0-6; Units: /HPF; Status: F Test: MUCUS, URINE; Value: SMALL; Range: NEGATIVE; Status: F Test: HYALINE CAST, URINE AUTO; Value: 0; Range: 0-1; Units: /LPF; Status: F Test: AMORPHOUS SEDIMENT; Value: SMALL; Range: NEGATIVE; Abnormal: Above high normal; Status: F Lab Order: Amylase; SPEC'07/20/16 20:19 Test: AMYLASE; Value: 65; Range: 25-115; Units: U/L; Status: F Lab Order: Basic Metabolic Profile; SPEC'07/20/16 20:19 Test: GLUCOSE, FASTING; Value: 87; Range: 70-105; Units: MG/DL; Status: F Test: BLOOD UREA NITROGEN; Value: 8; Range: 7-18; Units: MG/DL; Status: F Test: CREATININE FOR GFR; Value: 0.92; Range: 0.55-1.02; Units: MG/DL; Status: F Test: GLOMERULAR FILTRATION RATE; Value: > 60.0; Range: >60; Status: F Test: SODIUM LEVEL; Value: 142; Range: 136-145; Units: MEQ/L; Status: F Test: POTASSIUM SERUM; Value: 3.8; Range: 3.5-5.1; Units: MEQ/L; Status: F Test: CHLORIDE LEVEL; Value: 106; Range: 98-107; Units: MEQ/L; Status: F Test: CARBON DIOXIDE LEVEL; Value: 28; Range: 21-32; Units: MEQ/L; Status: F Test: ANION GAP; Value: 8; Range: 8-16; Units: MEQ/L; Status: F Test: CALCIUM LEVEL; Value: 9.0; Range: 8.5-10.1; Units: MG/DL; Status: F Test Note: ; Units are mL/min/1.73 m2 Chronic Kidney Disease Staging per NKF: Stage I & II GFR >=60 Normal to Mildly Decreased Stage III GFR 30-59 Moderately Decreased Stage IV GFR 15-29 Severely Decreased Stage V GFR <15 Very Little GFR Left ESRD GFR <15 on AERIAL ERECTOR Lab Order: CBC with Diff; SPEC'07/20/16 20:19 Test: WHITE BLOOD COUNT; Value: 8.6; Range: 4.0-10.0; Units: K/mm3; Status: F Test: RED BLOOD COUNT; Value: 4.67; Range: 4.00-5.40; Units: M/mm3; Status: F Test: HEMOGLOBIN; Value: 13.8; Range: 12.0-16.0; Units: g/dl; Status: F Test: HEMATOCRIT; Value: 42.3; Range: 36.0-47.0; Units: %; Status: F Test: MEAN CORPUSCULAR VOLUME; Value: 90.5; Range: 80.0-96.0; Units: fl; Status: F Test: MEAN CORPUSCULAR HEMOGLOBIN; Value: 29.6; Range: 27.0-33.0; Units: pg; Status: F Test: MEAN CORPUSCULAR HGB CONC; Value: 32.8; Range: 32.0-36.5; Units: g/dl; Status: F Test: RED CELL DISTRIBUTION WIDTH; Value: 13.2; Range: 11.5-14.5; Units: %; Status: F Test: PLATELET COUNT, AUTOMATED; Value: 208; Range: 150-450; Units: k/mm3; Status: F Test: NEUTROPHILS %; Value: 61.4; Range: 36.0-66.0; Units: %; Status: F Test: LYMPH %; Value: 28.8; Range: 24.0-44.0; Units: %; Status: F Test: MONO %; Value: 5.1; Range: 0.0-5.0; Abnormal: Above high normal; Units: %; Status: F Test: EOS %; Value: 1.0; Range: 0.0-3.0; Units: %; Status: F Test: BASO %; Value: 0.5; Range: 0.0-1.0; Units: %; Status: F Test: LARGE UNSTAINED CELL %; Value: 3.0; Range: 0.0-4.0; Units: %; Status: F Test: NEUTROPHILS #; Value: 5.3; Range: 1.8-7.7; Units: K/mm3; Status: F Test: LYMPH #; Value: 2.5; Range: 1.5-6.5; Units: K/mm3; Status: F Test: MONO #; Value: 0.4; Range: 0.0-0.8; Units: K/mm3; Status: F Test: EOS #; Value: 0.1; Range: 0.0-0.50; Units: K/mm3; Status: F Test: BASO #; Value: 0.0; Range: 0.0-0.2; Units: K/mm3; Status: F Test: LARGE UNSTAINED CELL #; Value: 0.3; Range: 0.0-0.4; Units: K/mm3; Status: F Lab Order: Lipase; SPEC' 07/20/16 20:19 Test: LIPASE; Value: 96; Range: 73-393; Units: U/L; Status: F Lab Order: Liver Profile; SPEC' 07/20/16 20:19 Test: AST/SGOT; Value: 15; Range: 15-37; Units: U/L; Status: F Test: ALT/SGPT; Value: 20; Range: 12-78; Units: U/L; Status: F Test: ALKALINE PHOSPHATASE; Value: 66; Range: 45-117; Units: U/L; Status: F Test: BILIRUBIN,TOTAL; Value: 0.2; Range: 0.2-1.0; Units: MG/DL; Status: F Test: BILIRUBIN,DIRECT; Value: < 0.1; Range: 0.0-0.2; Units: MG/DL; Status: F Test: TOTAL PROTEIN; Value: 6.8; Range: 6.4-8.2; Units: GM/DL; Status: F Test: ALBUMIN; Value: 3.5; Range: 3.2-5.2; Units: GM/DL; Status: F Test: ALBUMIN/GLOBULIN RATIO; Value: 1.06; Range: 1.00-1.93; Status: F Radiology Order: CT ABD & PELVIS: No Contrast Test: CT ABD & PELVIS: No Contrast REASON FOR EXAMINATION: right renal colic; ; CT of the abdomen and pelvis without contrast; Clinical statement: Pain.; Technique: Multiple axial CT images were obtained from the base of the lungs to the floor of the pelv; is utilizing 5 mm axial slices without administration of contrast. Coronal and sagittal reconstructio; ns were also obtained.; No comparison is available.; Findings:; Chest: The visualized lung bases are clear.; Abdomen: The kidneys are normal in size bilaterally. There is moderate right-sided hydronephrosis cau; sed by a 4 mm obstructing stone at the right ureteropelvic junction. The liver, spleen, pancreas, gal; lbladder and adrenal glands are unremarkable. The aorta demonstrates normal caliber and contour. Ther; e is no abdominal lymphadenopathy or ascites.; Pelvis: The bowel is unremarkable, with no obstructive or inflammatory changes. The appendix is mary; l. The urinary bladder is within normal limits. There is no pelvic lymphadenopathy or ascites. The ot; her pelvic structures appear unremarkable.; Bones: There are no suspicious osseous abnormalities seen.; Impression: Mild right-sided hydronephrosis caused by a 4 mm obstructing stone at the right ureterope; lvic junction.; ; Outcome: 22:44 Discharge ordered by Provider. ar2 23:05 Discharge Assessment: Patient awake, alert and oriented x 3. No cognitive and/or ld5 functional deficits noted. Patient verbalized understanding of disposition instructions. patient administered narcotics - no. The following High Risk Discharge criteria are identified: None. Discharged to home ambulatory, with friend. Condition: stable. Discharge instructions given to patient, Instructed on discharge instructions, follow up and referral plans. medication usage, no driving heavy equipment, Demonstrated understanding of instructions, medications, Pt was receptive of discharge instructions/ teaching. Prescriptions given X 4. CT Study completed. Property :Personal belongings accompany Pt. 23:07 Patient left the ED. ld5 Signatures: Dispatcher Med[employer] EDMS Oleg Siddiqui, RN RN cz Mary Morton, Reg Reg Krishna Chavez Aaron, PA-C PA-C ar2 Alfreda Izaguirre RN RN ld5 Nolvia Hurst RN RN [facility] Albina Brock gr2 Latha Shah, MANAGER LOCAL MANAGER LOCAL cln Nolvia Hurst RN [facility] Chart Complete MTDD
--- NOTE | 2016-07-23 10:44 | EDDOCDS ---
Physician Documentation [facility] Name: Chen Mortensen Age: 26 yrs Sex: Female : 1990 Arrival Date: 07/20/2016 Time: 19:40 Bed I5 / M5 Private MD: Madison Disposition: 07/20/16 22:44 Discharged to Home/Self Care. Impression: Hydronephrosis with renal and ureteral calculous obstruction - right 4mm UPJ stone with mild hydronephrosis. - Condition is Stable. - Discharge Instructions: Kidney Stones. - Prescriptions for Ibuprofen 800 mg Oral Tablet - take 1 tablet by ORAL route every 8 hours As needed take with food; 30 tablet. [place] 5- 325 mg Oral Tablet - take 1 tablet by ORAL route every 6 hours As needed MDD: 4 tabs; 16 tablet. Flomax 0.4 mg Oral Capsule, Sust. Release 24 hr - take 1 capsule by ORAL route once daily 1/2 hour following the same meal each day; 15 capsule. ZOFRAN ODT 4 mg Oral - dissolve 1 tablet by ORAL route every 8 hours As needed do not chew, do not swallow whole; 10 tablet. - Medication Reconciliation, Local Pharmacy Hours form. - Follow up: Joycelyn Nunn MD; When: Call to arrange an appointment; Reason: Recheck today's complaints, Continuance of care. Follow up: Emergency Department; When: As needed; Reason: Worsening of conditions. - Problem is new. - Symptoms have improved. - Notes: call saturday for follow up appointment. drink plenty of fluids Historical: - Allergies: No known drug Allergies; - Home Meds: 1. control - PMHx: none; - PSHx: ; - Social history: Smoking status: Patient states was never smoker of tobacco. No barriers to communication noted, The patient speaks fluent Polish, Speaks appropriately for age. - Family history: Not pertinent. - : The pt / caregiver states he / she is not on anticoagulants. Home medication list is obtained from the patient. - Exposure Risk Screening:: None identified. 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 11 in. (149.86 cm) (R); Pain 9/10; 23:05 BP 112 / 71; Pulse 74; Resp 16; Temp 97.8; Pulse Ox 100% on R/A; Pain 2/10; ld5 19:42 Body Mass Index 23.83 (53.52 kg, 149.86 cm) gr2 MDM: 19:57 UCG by Nursing ordered. cz 19:58 Urinalysis Ordered. EDMS 19:58 Urine Culture Ordered. EDMS 20:03 Undress patient appropriately for examination ordered. ar2 20:03 IV Saline Lock ordered. ar2 20:03 Ondansetron 4 mg IVP once ordered. ar2 20:05 Amylase Ordered. EDMS 20:05 Basic Metabolic Profile Ordered. EDMS 20:05 CBC with Diff Ordered. EDMS 20:05 Lipase Ordered. EDMS 20:05 Liver Profile Ordered. EDMS 20:06 NOTHING BY MOUTH+DIET ordered. EDMS 20:42 ketorolac 30 mg IVP once ordered. ar2 20:52 Urinalysis Reviewed. ar2 20:52 CBC with Diff Reviewed. ar2 20:52 Amylase Reviewed. ar2 20:52 Basic Metabolic Profile Reviewed. ar2 20:52 Lipase Reviewed. ar2 20:52 Liver Profile Reviewed. ar2 20:53 NS 0.9% 1000 ml IV at bolus once ordered. ar2 20:53 CT ABD & PELVIS: No Contrast Ordered. EDMS 21:48 Financial registration complete. zo 22:25 [facility] [place] Payment Agreement was scanned into MyC[employer] and attached to record. zo 22:42 Dispense Urine Strainer ordered. ar2 22:47 HYDROcodone-acetaminophen 4 pack- 5 mg-325 mg 1 packets PO Per package directions; ar2 Dispense with patient. 1 po q4h prn for pain ordered. 22:48 CT ABD & PELVIS: No Contrast Reviewed. ar2 07/21 11:30 T-Sheet-- Draft Copy was scanned into MyCube and attached to record. gb 11:30 Radiology Report was scanned into MyC[employer] and attached to record. gb Point of Care Testing: Urine : 07/20 20:16 hCG Reading: Negative; Control Reading: Positive; cln Ranges: Administered Medications: 20:24 Drug: Ondansetron 4 mg [ondansetron HCl 2 mg/mL intravenous solution (2 mL)] Route: ld5 IVP; Site: left antecubital; 23:05 Follow up: Response: Nausea is decreased ld5 20:48 Drug: ketorolac 30 mg [ketorolac 30 mg/mL (1 mL) injection solution (1 mL)] Route: IVP; ld5 Site: left antecubital; 23:00 Follow up: Response: Med's dispensed home ld5 21:11 Drug: NS 0.9% 1000 ml [sodium chloride 0.9 % intravenous solution] Route: IV; Rate: ld5 bolus; Site: left antecubital; 22:59 Follow up: IV Status: Completed infusion; IV Intake: 1000ml ld5 22:59 Drug: HYDROcodone-acetaminophen 4 pack- 1 packets [hydrocodone 5 mg-acetaminophen 325 ld5 mg tablet (1 tabs)] {Co-Signature: [facility] (Nolvia Hurst RN).} Route: PO; 22:59 Follow up: Response: Med's dispensed home ld5 Signatures: Dispatcher [employer] EDMS Oleg Siddiqui RN RN cz Mary Morton, Reg Reg gb Krishna Reilly Aaron, PA-C PA-C ar2 Alfreda Izaguirre RN RN [facility] Nolvia Hurst RN RN [facility] Nolvia Hurst RN [facility] The chart was reviewed and I authenticate all verbal orders and agree with the evaluation and treatment provided.Attachments: 22:25 [facility] Payment Agreement zo 07/21 11:30 T-Sheet-- Draft Copy gb MTDD
--- NOTE | 2016-07-23 10:44 | EDDOCDS ---
Nurse's Notes [facility] Name: Chen Mortensen Age: 26 yrs Sex: Female : 1990 Arrival Date: 07/20/2016 Time: 19:40 Bed I5 / M5 Private MD: Madison Diagnosis: Hydronephrosis with renal and ureteral calculous obstruction-right 4mm UPJ stone with mild hydronephrosis Presentation: 07/20 19:50 Presenting complaint: Patient states: stomach pain since earlier today pain back side cz and worse now pt denies UTI symptoms. Acute neurological deficits are not present. Mechanism of Injury: No Mechanism of Injury. Adult Sepsis Screening: The patient does not have new or worsening altered mentation. Patient's respiratory rate is less than 22. Systolic blood pressure is greater than 100. Patient has a qSOFA score of 0- Negative Sepsis Screen. Suicide/Homicide risk assessment- the patient denies having any suicidal and/or homicidal ideations and does not present with any other emotional, behavioral or mental health complaints. Status: The patient is a dependent. Transition of care: patient was not received from another setting of care. 19:50 Acuity: JULIA Level 3 cz 19:50 Method Of Arrival: Walkin/Carried/Asstd cz Triage Assessment: 19:52 General: Appears uncomfortable. Pain: Location: back Pain currently is 8 out of 10 on a cz pain scale. Pt Declines HIV testing. 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 control - PMHx: none; - PSHx: ; - Social history: Smoking status: Patient states was never smoker of tobacco. No barriers to communication noted, The patient speaks fluent Mohawk, Speaks appropriately for age. - Family history: Not pertinent. - : The pt / caregiver states he / she is not on anticoagulants. Home medication list is obtained from the patient. - Exposure Risk Screening:: None identified. Screenin:29 Screening information is obtained from the patient. Fall risk: No risks identified. cjh Assistance ADL's: requires no assistance with activities of daily living. Abuse/DV Screen: The patient / caregiver reports he/she is: not in a situation that causes fear, pain or injury. Nutritional screening: No deficits noted. Advance Directives: There is no active DNR order. home support is adequate. Assessment: 20:29 General: Appears in no apparent distress, comfortable, Behavior is appropriate for age, cjh cooperative. Pain: Location: posterior aspect of right lateral abdomen and anterior aspect of right lateral abdomen Pain currently is 8 out of 10 on a pain scale. Respiratory: Airway is patent Respiratory effort is even, unlabored, Respiratory pattern is regular, symmetrical. GI: Abdomen is non- distended Bowel sounds present X 4 quads. Abd is soft and non tender X 4 quads. Musculoskeletal: Range of motion intact in all extremities. 21:10 General: Pt laying in bed talking on phone. States "I feel so much better". Bolus ld5 started per orders. Will continue to monitor. 21:53 General: returned from CT, tolerated well, awaiting results, friends at bedside, will [facility] continue to monitor. 22:36 General: Pt ambulated to bathroom. Tolerated well. Reports minimal pain. Resting ld5 comfortably in bed. Friends at bedside. Will continue to monitor. 23:05 General: Appears in no apparent distress, Behavior is cooperative. Pain: Pain currently ld5 is 2 out of 10 on a pain scale. Neurological: Level of Consciousness is awake, alert. Respiratory: Airway is patent Respiratory effort is even, unlabored. Vital Signs: 19:42 BP 107 / 71; Pulse 72; Resp 18 S; Temp 97.9(O); Pulse Ox 99% on R/A; Weight 53.52 kg gr2 (R); Height 4 ft. 11 in. (149.86 cm) (R); Pain 9/10; 23:05 BP 112 / 71; Pulse 74; Resp 16; Temp 97.8; Pulse Ox 100% on R/A; Pain 2/10; ld5 19:42 Body Mass Index 23.83 (53.52 kg, 149.86 cm) gr2 Vitals: 19:42 Log In Time: July 20, 2016 at 19:42. gr2 ED Course: 19:42 Patient visited by Albina Brock. gr2 19:42 Madison is Private Physician. gr2 19:42 Patient moved to Waiting gr2 19:44 Patient visited by Albina Brock. gr2 19:44 Patient moved to Pre RCE gr2 19:51 Triage Initiated cz 19:55 Trino Lion [facility]. ar2 19:55 Patient moved to Triage 2 cz 19:56 Matthew Posada DO is Attending Physician. ar2 19:56 Patient visited by Trino Lion PA-C. ar2 20:06 Patient moved to I5 / M5 cz 20:16 Patient visited by Latha Shha PCA. cln 20:16 Urinalysis Sent. cln 20:16 Urine Culture Sent. cln 20:29 The patient / caregiver is instructed regarding the plan of care and ED course. [facility] 20:29 Inserted saline lock: 20 gauge in left antecubital area and blood collected. No [facility] procedures done that require assistance. Labs drawn. (by ED staff). Sent per order to lab. 20:48 Patient visited by Alfreda Izaguirre RN. ld5 21:11 Patient visited by Alfreda Izaguirre RN. ld5 21:54 Patient visited by Nolvia Hurst RN. cjh 22:12 CT ABD & PELVIS: No Contrast Returned. EDMS 22:25 [facility] [place] was scanned into [employer] and attached to record. zo 22:37 Patient visited by Alfreda Izaguirre RN. ld5 22:43 Joycelyn Nunn MD is Referral Physician. ar2 23:05 Discontinued lock intact, bleeding controlled, pressure dressing applied, No ld5 redness/swelling at site. 23:07 Patient visited by Alfreda Izaguirre RN. ld5 07/21 11:30 T-Sheet-- Draft Copy was scanned into [employer] and attached to record. gb 11:30 Radiology Report was scanned into [employer] and attached to record. gb Administered Medications: 07/20 20:24 Drug: Ondansetron 4 mg [ondansetron HCl 2 mg/mL intravenous solution (2 mL)] Route: ld5 IVP; Site: left antecubital; 23:05 Follow up: Response: Nausea is decreased ld5 20:48 Drug: ketorolac 30 mg [ketorolac 30 mg/mL (1 mL) injection solution (1 mL)] Route: IVP; ld5 Site: left antecubital; 23:00 Follow up: Response: Med's dispensed home ld5 21:11 Drug: NS 0.9% 1000 ml [sodium chloride 0.9 % intravenous solution] Route: IV; Rate: ld5 bolus; Site: left antecubital; 22:59 Follow up: IV Status: Completed infusion; IV Intake: 1000ml ld5 22:59 Drug: HYDROcodone-acetaminophen 4 pack- 1 packets [hydrocodone 5 mg-acetaminophen 325 ld5 mg tablet (1 tabs)] {Co-Signature: [facility] (Nolvia Hurst RN).} Route: PO; 22:59 Follow up: Response: Med's dispensed home ld5 Point of Care Testing: Urine : 20:16 hCG Reading: Negative; Control Reading: Positive; cln Ranges: Intake: 22:59 IV: 1000.00ml; Total: 1000.00ml. ld5 Order Results: Lab Order: Urine Culture; SPEC'M 07/20/16 19:58 Test: URINE CULTURE; Value: <EXTERNAL COMMENT eCWMed> FULL REPORT IN LAB NOTES (eCW and Medent).; Status: F Test: URINE CULTURE; Value: ORGANISM 1: PROTEUS MIRABILIS; Status: F Test: URINE CULTURE; Value: PROTEUS MIRABILIS; Status: F Test: URINE CULTURE; Value: COLONY COUNT CFU/ml >100,000; Status: F Test: URINE CULTURE; Value: GRAM NEG SENSI - VITEK 80; Status: F Test: URINE CULTURE; Value: Method: VIT2; Status: F Test: URINE CULTURE; Value: TRIMETHOPRIM/SULFAMETHOXAZOLE >=320 R; Status: F Test: URINE CULTURE; Value: AMPICILLIN <=2 S; Status: F Test: URINE CULTURE; Value: GENTAMICIN <=1 S; Status: F Test: URINE CULTURE; Value: NITROFURANTOIN 128 R; Status: F Test: URINE CULTURE; Value: CEFAZOLIN <=4 S; Status: F Test: URINE CULTURE; Value: LEVOFLOXACIN <=0.12 S; Status: F Test: URINE CULTURE; Value: TOBRAMYCIN <=1 S; Status: F Test: URINE CULTURE; Value: CEFTRIAXONE <=1 S; Status: F Test: URINE CULTURE; Value: CEFTAZIDIME <=1 S; Status: F Test: URINE CULTURE; Value: AMPICILLIN/SULBACTAM <=2 S; Status: F Test: URINE CULTURE; Value: PIPERACILLIN/TAZOBACTAM <=4 S; Status: F Test: URINE CULTURE; Value: AZTREONAM <=1 S; Status: F Test: URINE CULTURE; Value: ERTAPENEM <=0.5 S; Status: F Test: URINE CULTURE; Value: MEROPENEM <=0.25 S; Status: F Test: URINE CULTURE; Value: TIGECYCLINE 4 R; Status: F Test: URINE CULTURE; Value: CEFEPIME <=1 S; Status: F Lab Order: Urinalysis; SPEC'M 07/20/16 19:58 Test: APPEARANCE, URINE; Value: CLEAR; Range: CLEAR; Status: F Test: COLOR, URINE; Value: YELLOW; Range: YELLOW; Status: F Test: PH,URINE; Value: 8.0; Range: 5.0-9.0; Units: UNITS; Status: F Test: SPECIFIC GRAVITY URINE AUTO; Value: 1.018; Range: 1.002-1.035; Status: F Test: PROTEIN, URINE AUTO; Value: 1+; Range: NEGATIVE; Abnormal: Above high normal; Units: mg/dL; Status: F Test: GLUCOSE, URINE (UA) AUTO; Value: NEGATIVE; Range: NEGATIVE; Units: mg/dL; Status: F Test: KETONE, URINE AUTO; Value: NEGATIVE; Range: NEGATIVE; Units: mg/dL; Status: F Test: UROBILINOGEN, URINE AUTO; Value: 0.2; Range: 0.0-2.0; Units: mg/dL; Status: F Test: BILIRUBIN, URINE AUTO; Value: NEGATIVE; Range: NEGATIVE; Status: F Test: NITRITE, URINE AUTO; Value: NEGATIVE; Range: NEGATIVE; Status: F Test: LEUKOCYTE ESTERASE, URINE AUTO; Value: TRACE; Range: NEGATIVE; Abnormal: Above high normal; Status: F Test: BLOOD, URINE BLOOD; Value: 3+; Range: NEGATIVE; Abnormal: Above high normal; Status: F Test: WBC, URINE AUTO; Value: 13; Range: 0-3; Abnormal: Above high normal; Units: /HPF; Status: F Test: RBC, URINE AUTO; Value: TNTC; Range: 0-3; Abnormal: Above high normal; Units: /HPF; Status: F Test: BACTERIA, URINE AUTO; Value: 1+; Range: NEGATIVE; Abnormal: Above high normal; Status: F Test: SQUAMOUS EPITHELIAL CELL UR AU; Value: 1; Range: 0-6; Units: /HPF; Status: F Test: MUCUS, URINE; Value: SMALL; Range: NEGATIVE; Status: F Test: HYALINE CAST, URINE AUTO; Value: 0; Range: 0-1; Units: /LPF; Status: F Test: AMORPHOUS SEDIMENT; Value: SMALL; Range: NEGATIVE; Abnormal: Above high normal; Status: F Lab Order: Amylase; SPEC'07/20/16 20:19 Test: AMYLASE; Value: 65; Range: 25-115; Units: U/L; Status: F Lab Order: Basic Metabolic Profile; SPEC'07/20/16 20:19 Test: GLUCOSE, FASTING; Value: 87; Range: 70-105; Units: MG/DL; Status: F Test: BLOOD UREA NITROGEN; Value: 8; Range: 7-18; Units: MG/DL; Status: F Test: CREATININE FOR GFR; Value: 0.92; Range: 0.55-1.02; Units: MG/DL; Status: F Test: GLOMERULAR FILTRATION RATE; Value: > 60.0; Range: >60; Status: F Test: SODIUM LEVEL; Value: 142; Range: 136-145; Units: MEQ/L; Status: F Test: POTASSIUM SERUM; Value: 3.8; Range: 3.5-5.1; Units: MEQ/L; Status: F Test: CHLORIDE LEVEL; Value: 106; Range: 98-107; Units: MEQ/L; Status: F Test: CARBON DIOXIDE LEVEL; Value: 28; Range: 21-32; Units: MEQ/L; Status: F Test: ANION GAP; Value: 8; Range: 8-16; Units: MEQ/L; Status: F Test: CALCIUM LEVEL; Value: 9.0; Range: 8.5-10.1; Units: MG/DL; Status: F Test Note: ; Units are mL/min/1.73 m2 Chronic Kidney Disease Staging per NKF: Stage I & II GFR >=60 Normal to Mildly Decreased Stage III GFR 30-59 Moderately Decreased Stage IV GFR 15-29 Severely Decreased Stage V GFR <15 Very Little GFR Left ESRD GFR <15 on EVENT ATTENDANT Lab Order: CBC with Diff; SPEC'07/20/16 20:19 Test: WHITE BLOOD COUNT; Value: 8.6; Range: 4.0-10.0; Units: K/mm3; Status: F Test: RED BLOOD COUNT; Value: 4.67; Range: 4.00-5.40; Units: M/mm3; Status: F Test: HEMOGLOBIN; Value: 13.8; Range: 12.0-16.0; Units: g/dl; Status: F Test: HEMATOCRIT; Value: 42.3; Range: 36.0-47.0; Units: %; Status: F Test: MEAN CORPUSCULAR VOLUME; Value: 90.5; Range: 80.0-96.0; Units: fl; Status: F Test: MEAN CORPUSCULAR HEMOGLOBIN; Value: 29.6; Range: 27.0-33.0; Units: pg; Status: F Test: MEAN CORPUSCULAR HGB CONC; Value: 32.8; Range: 32.0-36.5; Units: g/dl; Status: F Test: RED CELL DISTRIBUTION WIDTH; Value: 13.2; Range: 11.5-14.5; Units: %; Status: F Test: PLATELET COUNT, AUTOMATED; Value: 208; Range: 150-450; Units: k/mm3; Status: F Test: NEUTROPHILS %; Value: 61.4; Range: 36.0-66.0; Units: %; Status: F Test: LYMPH %; Value: 28.8; Range: 24.0-44.0; Units: %; Status: F Test: MONO %; Value: 5.1; Range: 0.0-5.0; Abnormal: Above high normal; Units: %; Status: F Test: EOS %; Value: 1.0; Range: 0.0-3.0; Units: %; Status: F Test: BASO %; Value: 0.5; Range: 0.0-1.0; Units: %; Status: F Test: LARGE UNSTAINED CELL %; Value: 3.0; Range: 0.0-4.0; Units: %; Status: F Test: NEUTROPHILS #; Value: 5.3; Range: 1.8-7.7; Units: K/mm3; Status: F Test: LYMPH #; Value: 2.5; Range: 1.5-6.5; Units: K/mm3; Status: F Test: MONO #; Value: 0.4; Range: 0.0-0.8; Units: K/mm3; Status: F Test: EOS #; Value: 0.1; Range: 0.0-0.50; Units: K/mm3; Status: F Test: BASO #; Value: 0.0; Range: 0.0-0.2; Units: K/mm3; Status: F Test: LARGE UNSTAINED CELL #; Value: 0.3; Range: 0.0-0.4; Units: K/mm3; Status: F Lab Order: Lipase; SPEC' 07/20/16 20:19 Test: LIPASE; Value: 96; Range: 73-393; Units: U/L; Status: F Lab Order: Liver Profile; SPEC' 07/20/16 20:19 Test: AST/SGOT; Value: 15; Range: 15-37; Units: U/L; Status: F Test: ALT/SGPT; Value: 20; Range: 12-78; Units: U/L; Status: F Test: ALKALINE PHOSPHATASE; Value: 66; Range: 45-117; Units: U/L; Status: F Test: BILIRUBIN,TOTAL; Value: 0.2; Range: 0.2-1.0; Units: MG/DL; Status: F Test: BILIRUBIN,DIRECT; Value: < 0.1; Range: 0.0-0.2; Units: MG/DL; Status: F Test: TOTAL PROTEIN; Value: 6.8; Range: 6.4-8.2; Units: GM/DL; Status: F Test: ALBUMIN; Value: 3.5; Range: 3.2-5.2; Units: GM/DL; Status: F Test: ALBUMIN/GLOBULIN RATIO; Value: 1.06; Range: 1.00-1.93; Status: F Radiology Order: CT ABD & PELVIS: No Contrast Test: CT ABD & PELVIS: No Contrast REASON FOR EXAMINATION: right renal colic; ; CT of the abdomen and pelvis without contrast; Clinical statement: Pain.; Technique: Multiple axial CT images were obtained from the base of the lungs to the floor of the pelv; is utilizing 5 mm axial slices without administration of contrast. Coronal and sagittal reconstructio; ns were also obtained.; No comparison is available.; Findings:; Chest: The visualized lung bases are clear.; Abdomen: The kidneys are normal in size bilaterally. There is moderate right-sided hydronephrosis cau; sed by a 4 mm obstructing stone at the right ureteropelvic junction. The liver, spleen, pancreas, gal; lbladder and adrenal glands are unremarkable. The aorta demonstrates normal caliber and contour. Ther; e is no abdominal lymphadenopathy or ascites.; Pelvis: The bowel is unremarkable, with no obstructive or inflammatory changes. The appendix is mary; l. The urinary bladder is within normal limits. There is no pelvic lymphadenopathy or ascites. The ot; her pelvic structures appear unremarkable.; Bones: There are no suspicious osseous abnormalities seen.; Impression: Mild right-sided hydronephrosis caused by a 4 mm obstructing stone at the right ureterope; lvic junction.; ; Outcome: 22:44 Discharge ordered by Provider. ar2 23:05 Discharge Assessment: Patient awake, alert and oriented x 3. No cognitive and/or ld5 functional deficits noted. Patient verbalized understanding of disposition instructions. patient administered narcotics - no. The following High Risk Discharge criteria are identified: None. Discharged to home ambulatory, with friend. Condition: stable. Discharge instructions given to patient, Instructed on discharge instructions, follow up and referral plans. medication usage, no driving heavy equipment, Demonstrated understanding of instructions, medications, Pt was receptive of discharge instructions/ teaching. Prescriptions given X 4. CT Study completed. Property :Personal belongings accompany Pt. 23:07 Patient left the ED. ld5 Addendum: 07/23/2016 10:39 Narrative: Urine culture results reviewed with Dr. Rondon and Rx written for Keflex kcs 500 mg po QID x 7 days. Message left for patient to call us concerning where she would like Rx called to. Signatures: Dispatcher [employer] EDMS Cielo Keane RN RN kcs Zecher, Calvin, RN RN cz Barnhardt, Gloria, Joselito Reg Krishna Chavez Aaron, PA-C PA-C ar2 Alfreda Izaguirre RN RN ld5 Nolvia Hurst RN RN [facility] Albina Brock gr2 Latha Shah, STORY WRITER STORY WRITER cln Nolvia Hurst RN [facility] MTDD
--- NOTE | 2016-07-23 10:44 | EDDOCDS ---
Physician Documentation [facility] Name: Chen Mortensen Age: 26 yrs Sex: Female : 1990 Arrival Date: 07/20/2016 Time: 19:40 Bed I5 / M5 Private MD: Madison Disposition: 07/20/16 22:44 Discharged to Home/Self Care. Impression: Hydronephrosis with renal and ureteral calculous obstruction - right 4mm UPJ stone with mild hydronephrosis. - Condition is Stable. - Discharge Instructions: Kidney Stones. - Prescriptions for Ibuprofen 800 mg Oral Tablet - take 1 tablet by ORAL route every 8 hours As needed take with food; 30 tablet. [place] 5- 325 mg Oral Tablet - take 1 tablet by ORAL route every 6 hours As needed MDD: 4 tabs; 16 tablet. Flomax 0.4 mg Oral Capsule, Sust. Release 24 hr - take 1 capsule by ORAL route once daily 1/2 hour following the same meal each day; 15 capsule. ZOFRAN ODT 4 mg Oral - dissolve 1 tablet by ORAL route every 8 hours As needed do not chew, do not swallow whole; 10 tablet. - Medication Reconciliation, Local Pharmacy Hours form. - Follow up: Joycelyn Nunn MD; When: Call to arrange an appointment; Reason: Recheck today's complaints, Continuance of care. Follow up: Emergency Department; When: As needed; Reason: Worsening of conditions. - Problem is new. - Symptoms have improved. - Notes: call saturday for follow up appointment. drink plenty of fluids Historical: - Allergies: No known drug Allergies; - Home Meds: 1. control - PMHx: none; - PSHx: ; - Social history: Smoking status: Patient states was never smoker of tobacco. No barriers to communication noted, The patient speaks fluent Maori, Speaks appropriately for age. - Family history: Not pertinent. - : The pt / caregiver states he / she is not on anticoagulants. Home medication list is obtained from the patient. - Exposure Risk Screening:: None identified. 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 11 in. (149.86 cm) (R); Pain 9/10; 23:05 BP 112 / 71; Pulse 74; Resp 16; Temp 97.8; Pulse Ox 100% on R/A; Pain 2/10; ld5 19:42 Body Mass Index 23.83 (53.52 kg, 149.86 cm) gr2 MDM: 19:57 UCG by Nursing ordered. cz 19:58 Urinalysis Ordered. EDMS 19:58 Urine Culture Ordered. EDMS 20:03 Undress patient appropriately for examination ordered. ar2 20:03 IV Saline Lock ordered. ar2 20:03 Ondansetron 4 mg IVP once ordered. ar2 20:05 Amylase Ordered. EDMS 20:05 Basic Metabolic Profile Ordered. EDMS 20:05 CBC with Diff Ordered. EDMS 20:05 Lipase Ordered. EDMS 20:05 Liver Profile Ordered. EDMS 20:06 NOTHING BY MOUTH+DIET ordered. EDMS 20:42 ketorolac 30 mg IVP once ordered. ar2 20:52 Urinalysis Reviewed. ar2 20:52 CBC with Diff Reviewed. ar2 20:52 Amylase Reviewed. ar2 20:52 Basic Metabolic Profile Reviewed. ar2 20:52 Lipase Reviewed. ar2 20:52 Liver Profile Reviewed. ar2 20:53 NS 0.9% 1000 ml IV at bolus once ordered. ar2 20:53 CT ABD & PELVIS: No Contrast Ordered. EDMS 21:48 Financial registration complete. zo 22:25 [facility] [place] was scanned into [employer] and attached to record. zo 22:42 Dispense Urine Strainer ordered. ar2 22:47 HYDROcodone-acetaminophen 4 pack- 5 mg-325 mg 1 packets PO Per package directions; ar2 Dispense with patient. 1 po q4h prn for pain ordered. 22:48 CT ABD & PELVIS: No Contrast Reviewed. ar2 07/21 11:30 T-Sheet-- Draft Copy was scanned into [employer] and attached to record. gb 11:30 Radiology Report was scanned into [employer] and attached to record. gb Point of Care Testing: Urine : 07/20 20:16 hCG Reading: Negative; Control Reading: Positive; cln Ranges: Administered Medications: 20:24 Drug: Ondansetron 4 mg [ondansetron HCl 2 mg/mL intravenous solution (2 mL)] Route: ld5 IVP; Site: left antecubital; 23:05 Follow up: Response: Nausea is decreased ld5 20:48 Drug: ketorolac 30 mg [ketorolac 30 mg/mL (1 mL) injection solution (1 mL)] Route: IVP; ld5 Site: left antecubital; 23:00 Follow up: Response: Med's dispensed home ld5 21:11 Drug: NS 0.9% 1000 ml [sodium chloride 0.9 % intravenous solution] Route: IV; Rate: ld5 bolus; Site: left antecubital; 22:59 Follow up: IV Status: Completed infusion; IV Intake: 1000ml ld5 22:59 Drug: HYDROcodone-acetaminophen 4 pack- 1 packets [hydrocodone 5 mg-acetaminophen 325 ld5 mg tablet (1 tabs)] {Co-Signature: [facility] (Nolvia Hurst RN).} Route: PO; 22:59 Follow up: Response: Med's dispensed home ld5 Signatures: Dispatcher [employer] EDMS Oleg Siddiqui RN RN cz Mary Morton, Reg Reg gb Krishna Reilly Aaron, PA-C PA-C ar2 Alfreda Izaguirre RN RN [facility] Nolvia Hurst RN RN [facility] Nolvia Hurst RN [facility] The chart was reviewed and I authenticate all verbal orders and agree with the evaluation and treatment provided.Attachments: 22:25 [facility] Payment Agreement zo 07/21 11:30 T-Sheet-- Draft Copy gb MTDD
--- NOTE | 2016-07-23 10:45 | EDDOCDS ---
Nurse's Notes [facility] Name: Chen Mortensen Age: 26 yrs Sex: Female : 1990 Arrival Date: 07/20/2016 Time: 19:40 Bed I5 / M5 Private MD: Madison Diagnosis: Hydronephrosis with renal and ureteral calculous obstruction-right 4mm UPJ stone with mild hydronephrosis Presentation: 07/20 19:50 Presenting complaint: Patient states: stomach pain since earlier today pain back side cz and worse now pt denies UTI symptoms. Acute neurological deficits are not present. Mechanism of Injury: No Mechanism of Injury. Adult Sepsis Screening: The patient does not have new or worsening altered mentation. Patient's respiratory rate is less than 22. Systolic blood pressure is greater than 100. Patient has a qSOFA score of 0- Negative Sepsis Screen. Suicide/Homicide risk assessment- the patient denies having any suicidal and/or homicidal ideations and does not present with any other emotional, behavioral or mental health complaints. Status: The patient is a dependent. Transition of care: patient was not received from another setting of care. 19:50 Acuity: JULIA Level 3 cz 19:50 Method Of Arrival: Walkin/Carried/Asstd cz Triage Assessment: 19:52 General: Appears uncomfortable. Pain: Location: back Pain currently is 8 out of 10 on a cz pain scale. Pt Declines HIV testing. BOOK REVIEWER: 19:52 no periods due to control pill cz Historical: - Allergies: No known drug Allergies; - Home Meds: 1. control - PMHx: none; - PSHx: ; - Social history: Smoking status: Patient states was never smoker of tobacco. No barriers to communication noted, The patient speaks fluent Occitan, Speaks appropriately for age. - Family history: Not pertinent. - : The pt / caregiver states he / she is not on anticoagulants. Home medication list is obtained from the patient. - Exposure Risk Screening:: None identified. Screenin:29 Screening information is obtained from the patient. Fall risk: No risks identified. cjh Assistance ADL's: requires no assistance with activities of daily living. Abuse/DV Screen: The patient / caregiver reports he/she is: not in a situation that causes fear, pain or injury. Nutritional screening: No deficits noted. Advance Directives: There is no active DNR order. home support is adequate. Assessment: 20:29 General: Appears in no apparent distress, comfortable, Behavior is appropriate for age, cjh cooperative. Pain: Location: posterior aspect of right lateral abdomen and anterior aspect of right lateral abdomen Pain currently is 8 out of 10 on a pain scale. Respiratory: Airway is patent Respiratory effort is even, unlabored, Respiratory pattern is regular, symmetrical. GI: Abdomen is non- distended Bowel sounds present X 4 quads. Abd is soft and non tender X 4 quads. Musculoskeletal: Range of motion intact in all extremities. 21:10 General: Pt laying in bed talking on phone. States "I feel so much better". Bolus ld5 started per orders. Will continue to monitor. 21:53 General: returned from CT, tolerated well, awaiting results, friends at bedside, will [facility] continue to monitor. 22:36 General: Pt ambulated to bathroom. Tolerated well. Reports minimal pain. Resting ld5 comfortably in bed. Friends at bedside. Will continue to monitor. 23:05 General: Appears in no apparent distress, Behavior is cooperative. Pain: Pain currently ld5 is 2 out of 10 on a pain scale. Neurological: Level of Consciousness is awake, alert. Respiratory: Airway is patent Respiratory effort is even, unlabored. Vital Signs: 19:42 BP 107 / 71; Pulse 72; Resp 18 S; Temp 97.9(O); Pulse Ox 99% on R/A; Weight 53.52 kg gr2 (R); Height 4 ft. 11 in. (149.86 cm) (R); Pain 9/10; 23:05 BP 112 / 71; Pulse 74; Resp 16; Temp 97.8; Pulse Ox 100% on R/A; Pain 2/10; ld5 19:42 Body Mass Index 23.83 (53.52 kg, 149.86 cm) gr2 Vitals: 19:42 Log In Time: July 20, 2016 at 19:42. gr2 ED Course: 19:42 Patient visited by Albina Brock. gr2 19:42 Madison is Private Physician. gr2 19:42 Patient moved to Waiting gr2 19:44 Patient visited by Albina Brock. gr2 19:44 Patient moved to Pre RCE gr2 19:51 Triage Initiated cz 19:55 [facility] ar2 19:55 Patient moved to Triage 2 cz 19:56 Matthew Posada DO is Attending Physician. ar2 19:56 Patient visited by Trino Lion PA-C. ar2 20:06 Patient moved to I5 / M5 cz 20:16 Patient visited by Latha Shah PCA. cln 20:16 Urinalysis Sent. cln 20:16 Urine Culture Sent. cln 20:29 The patient / caregiver is instructed regarding the plan of care and ED course. [facility] 20:29 Inserted saline lock: 20 gauge in left antecubital area and blood collected. No [facility] procedures done that require assistance. Labs drawn. (by ED staff). Sent per order to lab. 20:48 Patient visited by Alfreda Izaguirre RN. ld5 21:11 Patient visited by Alfreda Izaguirre RN. ld5 21:54 Patient visited by Nolvia Hurst RN. cjh 22:12 CT ABD & PELVIS: No Contrast Returned. EDMS 22:25 [facility] [place] Agreement was scanned into [employer] and attached to record. zo 22:37 Patient visited by Alfreda Izaguirre RN. ld5 22:43 Joycelyn Nunn MD is Referral Physician. ar2 23:05 Discontinued lock intact, bleeding controlled, pressure dressing applied, No ld5 redness/swelling at site. 23:07 Patient visited by Alfreda Izaguirre RN. ld5 07/21 11:30 T-Sheet-- Draft Copy was scanned into [employer] and attached to record. gb 11:30 Radiology Report was scanned into [employer] and attached to record. gb Administered Medications: 07/20 20:24 Drug: Ondansetron 4 mg [ondansetron HCl 2 mg/mL intravenous solution (2 mL)] Route: ld5 IVP; Site: left antecubital; 23:05 Follow up: Response: Nausea is decreased ld5 20:48 Drug: ketorolac 30 mg [ketorolac 30 mg/mL (1 mL) injection solution (1 mL)] Route: IVP; ld5 Site: left antecubital; 23:00 Follow up: Response: Med's dispensed home ld5 21:11 Drug: NS 0.9% 1000 ml [sodium chloride 0.9 % intravenous solution] Route: IV; Rate: ld5 bolus; Site: left antecubital; 22:59 Follow up: IV Status: Completed infusion; IV Intake: 1000ml ld5 22:59 Drug: HYDROcodone-acetaminophen 4 pack- 1 packets [hydrocodone 5 mg-acetaminophen 325 ld5 mg tablet (1 tabs)] {Co-Signature: [facility] (Nolvia Hurst RN).} Route: PO; 22:59 Follow up: Response: Med's dispensed home ld5 Point of Care Testing: Urine : 20:16 hCG Reading: Negative; Control Reading: Positive; cln Ranges: Intake: 22:59 IV: 1000.00ml; Total: 1000.00ml. ld5 Order Results: Lab Order: Urine Culture; SPEC'M 07/20/16 19:58 Test: URINE CULTURE; Value: <EXTERNAL COMMENT eCWMed> FULL REPORT IN LAB NOTES (eCW and Medent).; Status: F Test: URINE CULTURE; Value: ORGANISM 1: PROTEUS MIRABILIS; Status: F Test: URINE CULTURE; Value: PROTEUS MIRABILIS; Status: F Test: URINE CULTURE; Value: COLONY COUNT CFU/ml >100,000; Status: F Test: URINE CULTURE; Value: GRAM NEG SENSI - VITEK 80; Status: F Test: URINE CULTURE; Value: Method: VIT2; Status: F Test: URINE CULTURE; Value: TRIMETHOPRIM/SULFAMETHOXAZOLE >=320 R; Status: F Test: URINE CULTURE; Value: AMPICILLIN <=2 S; Status: F Test: URINE CULTURE; Value: GENTAMICIN <=1 S; Status: F Test: URINE CULTURE; Value: NITROFURANTOIN 128 R; Status: F Test: URINE CULTURE; Value: CEFAZOLIN <=4 S; Status: F Test: URINE CULTURE; Value: LEVOFLOXACIN <=0.12 S; Status: F Test: URINE CULTURE; Value: TOBRAMYCIN <=1 S; Status: F Test: URINE CULTURE; Value: CEFTRIAXONE <=1 S; Status: F Test: URINE CULTURE; Value: CEFTAZIDIME <=1 S; Status: F Test: URINE CULTURE; Value: AMPICILLIN/SULBACTAM <=2 S; Status: F Test: URINE CULTURE; Value: PIPERACILLIN/TAZOBACTAM <=4 S; Status: F Test: URINE CULTURE; Value: AZTREONAM <=1 S; Status: F Test: URINE CULTURE; Value: ERTAPENEM <=0.5 S; Status: F Test: URINE CULTURE; Value: MEROPENEM <=0.25 S; Status: F Test: URINE CULTURE; Value: TIGECYCLINE 4 R; Status: F Test: URINE CULTURE; Value: CEFEPIME <=1 S; Status: F Lab Order: Urinalysis; SPEC'M 07/20/16 19:58 Test: APPEARANCE, URINE; Value: CLEAR; Range: CLEAR; Status: F Test: COLOR, URINE; Value: YELLOW; Range: YELLOW; Status: F Test: PH,URINE; Value: 8.0; Range: 5.0-9.0; Units: UNITS; Status: F Test: SPECIFIC GRAVITY URINE AUTO; Value: 1.018; Range: 1.002-1.035; Status: F Test: PROTEIN, URINE AUTO; Value: 1+; Range: NEGATIVE; Abnormal: Above high normal; Units: mg/dL; Status: F Test: GLUCOSE, URINE (UA) AUTO; Value: NEGATIVE; Range: NEGATIVE; Units: mg/dL; Status: F Test: KETONE, URINE AUTO; Value: NEGATIVE; Range: NEGATIVE; Units: mg/dL; Status: F Test: UROBILINOGEN, URINE AUTO; Value: 0.2; Range: 0.0-2.0; Units: mg/dL; Status: F Test: BILIRUBIN, URINE AUTO; Value: NEGATIVE; Range: NEGATIVE; Status: F Test: NITRITE, URINE AUTO; Value: NEGATIVE; Range: NEGATIVE; Status: F Test: LEUKOCYTE ESTERASE, URINE AUTO; Value: TRACE; Range: NEGATIVE; Abnormal: Above high normal; Status: F Test: BLOOD, URINE BLOOD; Value: 3+; Range: NEGATIVE; Abnormal: Above high normal; Status: F Test: WBC, URINE AUTO; Value: 13; Range: 0-3; Abnormal: Above high normal; Units: /HPF; Status: F Test: RBC, URINE AUTO; Value: TNTC; Range: 0-3; Abnormal: Above high normal; Units: /HPF; Status: F Test: BACTERIA, URINE AUTO; Value: 1+; Range: NEGATIVE; Abnormal: Above high normal; Status: F Test: SQUAMOUS EPITHELIAL CELL UR AU; Value: 1; Range: 0-6; Units: /HPF; Status: F Test: MUCUS, URINE; Value: SMALL; Range: NEGATIVE; Status: F Test: HYALINE CAST, URINE AUTO; Value: 0; Range: 0-1; Units: /LPF; Status: F Test: AMORPHOUS SEDIMENT; Value: SMALL; Range: NEGATIVE; Abnormal: Above high normal; Status: F Lab Order: Amylase; SPEC'07/20/16 20:19 Test: AMYLASE; Value: 65; Range: 25-115; Units: U/L; Status: F Lab Order: Basic Metabolic Profile; SPEC'07/20/16 20:19 Test: GLUCOSE, FASTING; Value: 87; Range: 70-105; Units: MG/DL; Status: F Test: BLOOD UREA NITROGEN; Value: 8; Range: 7-18; Units: MG/DL; Status: F Test: CREATININE FOR GFR; Value: 0.92; Range: 0.55-1.02; Units: MG/DL; Status: F Test: GLOMERULAR FILTRATION RATE; Value: > 60.0; Range: >60; Status: F Test: SODIUM LEVEL; Value: 142; Range: 136-145; Units: MEQ/L; Status: F Test: POTASSIUM SERUM; Value: 3.8; Range: 3.5-5.1; Units: MEQ/L; Status: F Test: CHLORIDE LEVEL; Value: 106; Range: 98-107; Units: MEQ/L; Status: F Test: CARBON DIOXIDE LEVEL; Value: 28; Range: 21-32; Units: MEQ/L; Status: F Test: ANION GAP; Value: 8; Range: 8-16; Units: MEQ/L; Status: F Test: CALCIUM LEVEL; Value: 9.0; Range: 8.5-10.1; Units: MG/DL; Status: F Test Note: ; Units are mL/min/1.73 m2 Chronic Kidney Disease Staging per NKF: Stage I & II GFR >=60 Normal to Mildly Decreased Stage III GFR 30-59 Moderately Decreased Stage IV GFR 15-29 Severely Decreased Stage V GFR <15 Very Little GFR Left ESRD GFR <15 on PASTE UP ARTIST Lab Order: CBC with Diff; SPEC'07/20/16 20:19 Test: WHITE BLOOD COUNT; Value: 8.6; Range: 4.0-10.0; Units: K/mm3; Status: F Test: RED BLOOD COUNT; Value: 4.67; Range: 4.00-5.40; Units: M/mm3; Status: F Test: HEMOGLOBIN; Value: 13.8; Range: 12.0-16.0; Units: g/dl; Status: F Test: HEMATOCRIT; Value: 42.3; Range: 36.0-47.0; Units: %; Status: F Test: MEAN CORPUSCULAR VOLUME; Value: 90.5; Range: 80.0-96.0; Units: fl; Status: F Test: MEAN CORPUSCULAR HEMOGLOBIN; Value: 29.6; Range: 27.0-33.0; Units: pg; Status: F Test: MEAN CORPUSCULAR HGB CONC; Value: 32.8; Range: 32.0-36.5; Units: g/dl; Status: F Test: RED CELL DISTRIBUTION WIDTH; Value: 13.2; Range: 11.5-14.5; Units: %; Status: F Test: PLATELET COUNT, AUTOMATED; Value: 208; Range: 150-450; Units: k/mm3; Status: F Test: NEUTROPHILS %; Value: 61.4; Range: 36.0-66.0; Units: %; Status: F Test: LYMPH %; Value: 28.8; Range: 24.0-44.0; Units: %; Status: F Test: MONO %; Value: 5.1; Range: 0.0-5.0; Abnormal: Above high normal; Units: %; Status: F Test: EOS %; Value: 1.0; Range: 0.0-3.0; Units: %; Status: F Test: BASO %; Value: 0.5; Range: 0.0-1.0; Units: %; Status: F Test: LARGE UNSTAINED CELL %; Value: 3.0; Range: 0.0-4.0; Units: %; Status: F Test: NEUTROPHILS #; Value: 5.3; Range: 1.8-7.7; Units: K/mm3; Status: F Test: LYMPH #; Value: 2.5; Range: 1.5-6.5; Units: K/mm3; Status: F Test: MONO #; Value: 0.4; Range: 0.0-0.8; Units: K/mm3; Status: F Test: EOS #; Value: 0.1; Range: 0.0-0.50; Units: K/mm3; Status: F Test: BASO #; Value: 0.0; Range: 0.0-0.2; Units: K/mm3; Status: F Test: LARGE UNSTAINED CELL #; Value: 0.3; Range: 0.0-0.4; Units: K/mm3; Status: F Lab Order: Lipase; SPEC' 07/20/16 20:19 Test: LIPASE; Value: 96; Range: 73-393; Units: U/L; Status: F Lab Order: Liver Profile; SPEC' 07/20/16 20:19 Test: AST/SGOT; Value: 15; Range: 15-37; Units: U/L; Status: F Test: ALT/SGPT; Value: 20; Range: 12-78; Units: U/L; Status: F Test: ALKALINE PHOSPHATASE; Value: 66; Range: 45-117; Units: U/L; Status: F Test: BILIRUBIN,TOTAL; Value: 0.2; Range: 0.2-1.0; Units: MG/DL; Status: F Test: BILIRUBIN,DIRECT; Value: < 0.1; Range: 0.0-0.2; Units: MG/DL; Status: F Test: TOTAL PROTEIN; Value: 6.8; Range: 6.4-8.2; Units: GM/DL; Status: F Test: ALBUMIN; Value: 3.5; Range: 3.2-5.2; Units: GM/DL; Status: F Test: ALBUMIN/GLOBULIN RATIO; Value: 1.06; Range: 1.00-1.93; Status: F Radiology Order: CT ABD & PELVIS: No Contrast Test: CT ABD & PELVIS: No Contrast REASON FOR EXAMINATION: right renal colic; ; CT of the abdomen and pelvis without contrast; Clinical statement: Pain.; Technique: Multiple axial CT images were obtained from the base of the lungs to the floor of the pelv; is utilizing 5 mm axial slices without administration of contrast. Coronal and sagittal reconstructio; ns were also obtained.; No comparison is available.; Findings:; Chest: The visualized lung bases are clear.; Abdomen: The kidneys are normal in size bilaterally. There is moderate right-sided hydronephrosis cau; sed by a 4 mm obstructing stone at the right ureteropelvic junction. The liver, spleen, pancreas, gal; lbladder and adrenal glands are unremarkable. The aorta demonstrates normal caliber and contour. Ther; e is no abdominal lymphadenopathy or ascites.; Pelvis: The bowel is unremarkable, with no obstructive or inflammatory changes. The appendix is mary; l. The urinary bladder is within normal limits. There is no pelvic lymphadenopathy or ascites. The ot; her pelvic structures appear unremarkable.; Bones: There are no suspicious osseous abnormalities seen.; Impression: Mild right-sided hydronephrosis caused by a 4 mm obstructing stone at the right ureterope; lvic junction.; ; Outcome: 22:44 Discharge ordered by Provider. ar2 23:05 Discharge Assessment: Patient awake, alert and oriented x 3. No cognitive and/or ld5 functional deficits noted. Patient verbalized understanding of disposition instructions. patient administered narcotics - no. The following High Risk Discharge criteria are identified: None. Discharged to home ambulatory, with friend. Condition: stable. Discharge instructions given to patient, Instructed on discharge instructions, follow up and referral plans. medication usage, no driving heavy equipment, Demonstrated understanding of instructions, medications, Pt was receptive of discharge instructions/ teaching. Prescriptions given X 4. CT Study completed. Property :Personal belongings accompany Pt. 23:07 Patient left the ED. ld5 Addendum: 07/23/2016 10:39 Narrative: Urine culture results reviewed with Dr. Rondon and Rx written for Keflex kcs 500 mg po QID x 7 days. Message left for patient to call us concerning where she would like Rx called to. Signatures: Dispatcher [employer] EDMS Cielo Keane RN RN kcs Zecher, Calvin, RN RN cz Barnhardt, Gloria, Joselito Reg Krishna Chavez Aaron, PA-C PA-C ar2 Alfreda Izaguirre RN RN ld5 Nolvia Hurst RN RN [facility] Albina Brock gr2 Latha Shah, ADZING AND BORING MACHINE HELPER ADZING AND BORING MACHINE HELPER cln Nolvia Hurst RN [facility] Chart Complete MTDD
--- NOTE | 2016-07-23 10:45 | EDDOCDS ---
Physician Documentation [facility] Name: Chen Mortensen Age: 26 yrs Sex: Female : 1990 Arrival Date: 07/20/2016 Time: 19:40 Bed I5 / M5 Private MD: Madison Disposition: 07/20/16 22:44 Discharged to Home/Self Care. Impression: Hydronephrosis with renal and ureteral calculous obstruction - right 4mm UPJ stone with mild hydronephrosis. - Condition is Stable. - Discharge Instructions: Kidney Stones. - Prescriptions for Ibuprofen 800 mg Oral Tablet - take 1 tablet by ORAL route every 8 hours As needed take with food; 30 tablet. [place] 5- 325 mg Oral Tablet - take 1 tablet by ORAL route every 6 hours As needed MDD: 4 tabs; 16 tablet. Flomax 0.4 mg Oral Capsule, Sust. Release 24 hr - take 1 capsule by ORAL route once daily 1/2 hour following the same meal each day; 15 capsule. ZOFRAN ODT 4 mg Oral - dissolve 1 tablet by ORAL route every 8 hours As needed do not chew, do not swallow whole; 10 tablet. - Medication Reconciliation, Local Pharmacy Hours form. - Follow up: Joycelyn Nunn MD; When: Call to arrange an appointment; Reason: Recheck today's complaints, Continuance of care. Follow up: Emergency Department; When: As needed; Reason: Worsening of conditions. - Problem is new. - Symptoms have improved. - Notes: call saturday for follow up appointment. drink plenty of fluids Historical: - Allergies: No known drug Allergies; - Home Meds: 1. control - PMHx: none; - PSHx: ; - Social history: Smoking status: Patient states was never smoker of tobacco. No barriers to communication noted, The patient speaks fluent Lithuanian, Speaks appropriately for age. - Family history: Not pertinent. - : The pt / caregiver states he / she is not on anticoagulants. Home medication list is obtained from the patient. - Exposure Risk Screening:: None identified. SURGICAL CODER: 07/20 19:52 no periods due to control pill cz Vital Signs: 19:42 BP 107 / 71; Pulse 72; Resp 18 S; Temp 97.9(O); Pulse Ox 99% on R/A; Weight 53.52 kg / gr2 117.99 lbs (R); Height 4 ft. 11 in. (149.86 cm) (R); Pain 9/10; 23:05 BP 112 / 71; Pulse 74; Resp 16; Temp 97.8; Pulse Ox 100% on R/A; Pain 2/10; ld5 19:42 Body Mass Index 23.83 (53.52 kg, 149.86 cm) gr2 MDM: 19:57 UCG by Nursing ordered. cz 19:58 Urinalysis Ordered. EDMS 19:58 Urine Culture Ordered. EDMS 20:03 Undress patient appropriately for examination ordered. ar2 20:03 IV Saline Lock ordered. ar2 20:03 Ondansetron 4 mg IVP once ordered. ar2 20:05 Amylase Ordered. EDMS 20:05 Basic Metabolic Profile Ordered. EDMS 20:05 CBC with Diff Ordered. EDMS 20:05 Lipase Ordered. EDMS 20:05 Liver Profile Ordered. EDMS 20:06 NOTHING BY MOUTH+DIET ordered. EDMS 20:42 ketorolac 30 mg IVP once ordered. ar2 20:52 Urinalysis Reviewed. ar2 20:52 CBC with Diff Reviewed. ar2 20:52 Amylase Reviewed. ar2 20:52 Basic Metabolic Profile Reviewed. ar2 20:52 Lipase Reviewed. ar2 20:52 Liver Profile Reviewed. ar2 20:53 NS 0.9% 1000 ml IV at bolus once ordered. ar2 20:53 CT ABD & PELVIS: No Contrast Ordered. EDMS 21:48 Financial registration complete. zo 22:25 [facility] [place] Payment Agreement was scanned into [employer] and attached to record. zo 22:42 Dispense Urine Strainer ordered. ar2 22:47 HYDROcodone-acetaminophen 4 pack- 5 mg-325 mg 1 packets PO Per package directions; ar2 Dispense with patient. 1 po q4h prn for pain ordered. 22:48 CT ABD & PELVIS: No Contrast Reviewed. ar2 07/21 11:30 T-Sheet-- Draft Copy was scanned into [employer] and attached to record. gb 11:30 Radiology Report was scanned into [employer] and attached to record. gb Point of Care Testing: Urine : 07/20 20:16 hCG Reading: Negative; Control Reading: Positive; cln Ranges: Administered Medications: 20:24 Drug: Ondansetron 4 mg [ondansetron HCl 2 mg/mL intravenous solution (2 mL)] Route: ld5 IVP; Site: left antecubital; 23:05 Follow up: Response: Nausea is decreased ld5 20:48 Drug: ketorolac 30 mg [ketorolac 30 mg/mL (1 mL) injection solution (1 mL)] Route: IVP; ld5 Site: left antecubital; 23:00 Follow up: Response: Med's dispensed home ld5 21:11 Drug: NS 0.9% 1000 ml [sodium chloride 0.9 % intravenous solution] Route: IV; Rate: ld5 bolus; Site: left antecubital; 22:59 Follow up: IV Status: Completed infusion; IV Intake: 1000ml ld5 22:59 Drug: HYDROcodone-acetaminophen 4 pack- 1 packets [hydrocodone 5 mg-acetaminophen 325 ld5 mg tablet (1 tabs)] {Co-Signature: [facility] (Nolvia Hurst RN).} Route: PO; 22:59 Follow up: Response: Med's dispensed home ld5 Signatures: Dispatcher [employer] EDMS Oleg Siddiqui RN RN cz Mary Morton, Reg Reg gb Krishna Reilly Aaron, PA-C PA-C ar2 Alfreda Izaguirre RN RN [facility] Nolvia Hurst RN RN [facility] Nolvia Hurst RN [facility] The chart was reviewed and I authenticate all verbal orders and agree with the evaluation and treatment provided.Attachments: 22:25 [facility] Payment Agreement zo 07/21 11:30 T-Sheet-- Draft Copy gb Chart Complete MTDD
--- NOTE | 2016-07-23 10:45 | EDDOCDS ---
Physician Documentation [facility] Name: Chen Mortensen Age: 26 yrs Sex: Female : 1990 Arrival Date: 07/20/2016 Time: 19:40 Bed I5 / M5 Private MD: [place] Disposition: 07/20/16 22:44 Discharged to Home/Self Care. Impression: Hydronephrosis with renal and ureteral calculous obstruction - right 4mm UPJ stone with mild hydronephrosis. - Condition is Stable. - Discharge Instructions: Kidney Stones. - Prescriptions for Ibuprofen 800 mg Oral Tablet - take 1 tablet by ORAL route every 8 hours As needed take with food; 30 tablet. [place] 5- 325 mg Oral Tablet - take 1 tablet by ORAL route every 6 hours As needed MDD: 4 tabs; 16 tablet. Flomax 0.4 mg Oral Capsule, Sust. Release 24 hr - take 1 capsule by ORAL route once daily 1/2 hour following the same meal each day; 15 capsule. ZOFRAN ODT 4 mg Oral - dissolve 1 tablet by ORAL route every 8 hours As needed do not chew, do not swallow whole; 10 tablet. - Medication Reconciliation, Local Pharmacy Hours form. - Follow up: Joycelyn Nunn MD; When: Call to arrange an appointment; Reason: Recheck today's complaints, Continuance of care. Follow up: Emergency Department; When: As needed; Reason: Worsening of conditions. - Problem is new. - Symptoms have improved. - Notes: call saturday for follow up appointment. drink plenty of fluids Historical: - Allergies: No known drug Allergies; - Home Meds: 1. control - PMHx: none; - PSHx: ; - Social history: Smoking status: Patient states was never smoker of tobacco. No barriers to communication noted, The patient speaks fluent Kinyar[place], Speaks appropriately for age. - Family history: Not pertinent. - : The pt / caregiver states he / she is not on anticoagulants. Home medication list is obtained from the patient. - Exposure Risk Screening:: None identified. 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 11 in. (149.86 cm) (R); Pain 9/10; 23:05 BP 112 / 71; Pulse 74; Resp 16; Temp 97.8; Pulse Ox 100% on R/A; Pain 2/10; ld5 19:42 Body Mass Index 23.83 (53.52 kg, 149.86 cm) gr2 MDM: 19:57 UCG by Nursing ordered. cz 19:58 Urinalysis Ordered. EDMS 19:58 Urine Culture Ordered. EDMS 20:03 Undress patient appropriately for examination ordered. ar2 20:03 IV Saline Lock ordered. ar2 20:03 Ondansetron 4 mg IVP once ordered. ar2 20:05 Amylase Ordered. EDMS 20:05 Basic Metabolic Profile Ordered. EDMS 20:05 CBC with Diff Ordered. EDMS 20:05 Lipase Ordered. EDMS 20:05 Liver Profile Ordered. EDMS 20:06 NOTHING BY MOUTH+DIET ordered. EDMS 20:42 ketorolac 30 mg IVP once ordered. ar2 20:52 Urinalysis Reviewed. ar2 20:52 CBC with Diff Reviewed. ar2 20:52 Amylase Reviewed. ar2 20:52 Basic Metabolic Profile Reviewed. ar2 20:52 Lipase Reviewed. ar2 20:52 Liver Profile Reviewed. ar2 20:53 NS 0.9% 1000 ml IV at bolus once ordered. ar2 20:53 CT ABD & PELVIS: No Contrast Ordered. EDMS 21:48 Financial registration complete. zo 22:25 [facility] [place] was scanned into [employer] and attached to record. zo 22:42 Dispense Urine Strainer ordered. ar2 22:47 HYDROcodone-acetaminophen 4 pack- 5 mg-325 mg 1 packets PO Per package directions; ar2 Dispense with patient. 1 po q4h prn for pain ordered. 22:48 CT ABD & PELVIS: No Contrast Reviewed. ar2 07/21 11:30 T-Sheet-- Draft Copy was scanned into [employer] and attached to record. gb 11:30 Radiology Report was scanned into [employer] and attached to record. gb Point of Care Testing: Urine : 07/20 20:16 hCG Reading: Negative; Control Reading: Positive; cln Ranges: Administered Medications: 20:24 Drug: Ondansetron 4 mg [ondansetron HCl 2 mg/mL intravenous solution (2 mL)] Route: ld5 IVP; Site: left antecubital; 23:05 Follow up: Response: Nausea is decreased ld5 20:48 Drug: ketorolac 30 mg [ketorolac 30 mg/mL (1 mL) injection solution (1 mL)] Route: IVP; ld5 Site: left antecubital; 23:00 Follow up: Response: Med's dispensed home ld5 21:11 Drug: NS 0.9% 1000 ml [sodium chloride 0.9 % intravenous solution] Route: IV; Rate: ld5 bolus; Site: left antecubital; 22:59 Follow up: IV Status: Completed infusion; IV Intake: 1000ml ld5 22:59 Drug: HYDROcodone-acetaminophen 4 pack- 1 packets [hydrocodone 5 mg-acetaminophen 325 ld5 mg tablet (1 tabs)] {Co-Signature: [facility] (Nolvia Hurst RN).} Route: PO; 22:59 Follow up: Response: Med's dispensed home ld5 Signatures: Dispatcher [employer] EDMS Oleg Siddiqui RN RN cz Mary Morton, Reg Reg gb Krishna Reilly Aaron, PA-C PA-C ar2 Alfreda Izaguirre RN RN [facility] Nolvia Hurst RN RN [facility] Nolvia Hurst RN [facility] The chart was reviewed and I authenticate all verbal orders and agree with the evaluation and treatment provided.Attachments: 22:25 [facility] Payment Agreement zo 07/21 11:30 T-Sheet-- Draft Copy gb Chart Complete MTDD
--- NOTE | 2016-07-23 11:35 | EDDOCDS ---
Physician Documentation [facility] Name: Chen Mortensen Age: 26 yrs Sex: Female : 1990 Arrival Date: 07/20/2016 Time: 19:40 Bed I5 / M5 Private MD: [place] Disposition: 07/20/16 22:44 Discharged to Home/Self Care. Impression: Hydronephrosis with renal and ureteral calculous obstruction - right 4mm UPJ stone with mild hydronephrosis. - Condition is Stable. - Discharge Instructions: Kidney Stones. - Prescriptions for Ibuprofen 800 mg Oral Tablet - take 1 tablet by ORAL route every 8 hours As needed take with food; 30 tablet. [place] 5- 325 mg Oral Tablet - take 1 tablet by ORAL route every 6 hours As needed MDD: 4 tabs; 16 tablet. Flomax 0.4 mg Oral Capsule, Sust. Release 24 hr - take 1 capsule by ORAL route once daily 1/2 hour following the same meal each day; 15 capsule. ZOFRAN ODT 4 mg Oral - dissolve 1 tablet by ORAL route every 8 hours As needed do not chew, do not swallow whole; 10 tablet. - Medication Reconciliation, Local Pharmacy Hours form. - Follow up: Joycelyn Nunn MD; When: Call to arrange an appointment; Reason: Recheck today's complaints, Continuance of care. Follow up: Emergency Department; When: As needed; Reason: Worsening of conditions. - Problem is new. - Symptoms have improved. - Notes: call saturday for follow up appointment. drink plenty of fluids Historical: - Allergies: No known drug Allergies; - Home Meds: 1. control - PMHx: none; - PSHx: ; - Social history: Smoking status: Patient states was never smoker of tobacco. No barriers to communication noted, The patient speaks fluent French, Speaks appropriately for age. - Family history: Not pertinent. - : The pt / caregiver states he / she is not on anticoagulants. Home medication list is obtained from the patient. - Exposure Risk Screening:: None identified. 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 11 in. (149.86 cm) (R); Pain 9/10; 23:05 BP 112 / 71; Pulse 74; Resp 16; Temp 97.8; Pulse Ox 100% on R/A; Pain 2/10; ld5 19:42 Body Mass Index 23.83 (53.52 kg, 149.86 cm) gr2 MDM: 19:57 UCG by Nursing ordered. cz 19:58 Urinalysis Ordered. EDMS 19:58 Urine Culture Ordered. EDMS 20:03 Undress patient appropriately for examination ordered. ar2 20:03 IV Saline Lock ordered. ar2 20:03 Ondansetron 4 mg IVP once ordered. ar2 20:05 Amylase Ordered. EDMS 20:05 Basic Metabolic Profile Ordered. EDMS 20:05 CBC with Diff Ordered. EDMS 20:05 Lipase Ordered. EDMS 20:05 Liver Profile Ordered. EDMS 20:06 NOTHING BY MOUTH+DIET ordered. EDMS 20:42 ketorolac 30 mg IVP once ordered. ar2 20:52 Urinalysis Reviewed. ar2 20:52 CBC with Diff Reviewed. ar2 20:52 Amylase Reviewed. ar2 20:52 Basic Metabolic Profile Reviewed. ar2 20:52 Lipase Reviewed. ar2 20:52 Liver Profile Reviewed. ar2 20:53 NS 0.9% 1000 ml IV at bolus once ordered. ar2 20:53 CT ABD & PELVIS: No Contrast Ordered. EDMS 21:48 Financial registration complete. zo 22:25 [facility] [place] Payment Agreement was scanned into [employer] and attached to record. zo 22:42 Dispense Urine Strainer ordered. ar2 22:47 HYDROcodone-acetaminophen 4 pack- 5 mg-325 mg 1 packets PO Per package directions; ar2 Dispense with patient. 1 po q4h prn for pain ordered. 22:48 CT ABD & PELVIS: No Contrast Reviewed. ar2 07/21 11:30 T-Sheet-- Draft Copy was scanned into [employer] and attached to record. gb 11:30 Radiology Report was scanned into [employer] and attached to record. gb Point of Care Testing: Urine : 07/20 20:16 hCG Reading: Negative; Control Reading: Positive; cln Ranges: Administered Medications: 20:24 Drug: Ondansetron 4 mg [ondansetron HCl 2 mg/mL intravenous solution (2 mL)] Route: ld5 IVP; Site: left antecubital; 23:05 Follow up: Response: Nausea is decreased ld5 20:48 Drug: ketorolac 30 mg [ketorolac 30 mg/mL (1 mL) injection solution (1 mL)] Route: IVP; ld5 Site: left antecubital; 23:00 Follow up: Response: Med's dispensed home ld5 21:11 Drug: NS 0.9% 1000 ml [sodium chloride 0.9 % intravenous solution] Route: IV; Rate: ld5 bolus; Site: left antecubital; 22:59 Follow up: IV Status: Completed infusion; IV Intake: 1000ml ld5 22:59 Drug: HYDROcodone-acetaminophen 4 pack- 1 packets [hydrocodone 5 mg-acetaminophen 325 ld5 mg tablet (1 tabs)] {Co-Signature: [facility] (Nolvia Hurst RN).} Route: PO; 22:59 Follow up: Response: Med's dispensed home ld5 Signatures: Dispatcher [employer] EDMS Oleg Siddiqui RN RN cz Mary Morton, Reg Reg gb Krishna Reilly Aaron, PA-C PA-C ar2 Alfreda Izaguirre RN RN [facility] Nolvia Hurst RN RN [facility] Nolvia Hurst RN [facility] The chart was reviewed and I authenticate all verbal orders and agree with the evaluation and treatment provided.Attachments: 22:25 [facility]END[facility] TO [facility] Payment Agreement zo 07/21 11:30 T-Sheet-- Draft Copy gb MTDD
--- NOTE | 2016-07-23 11:35 | EDDOCDS ---
Nurse's Notes [facility] Name: Chen Mortensen Age: 26 yrs Sex: Female : 1990 Arrival Date: 07/20/2016 Time: 19:40 Bed I5 / M5 Private MD: Madison Diagnosis: Hydronephrosis with renal and ureteral calculous obstruction-right 4mm UPJ stone with mild hydronephrosis Presentation: 07/20 19:50 Presenting complaint: Patient states: stomach pain since earlier today pain back side cz and worse now pt denies UTI symptoms. Acute neurological deficits are not present. Mechanism of Injury: No Mechanism of Injury. Adult Sepsis Screening: The patient does not have new or worsening altered mentation. Patient's respiratory rate is less than 22. Systolic blood pressure is greater than 100. Patient has a qSOFA score of 0- Negative Sepsis Screen. Suicide/Homicide risk assessment- the patient denies having any suicidal and/or homicidal ideations and does not present with any other emotional, behavioral or mental health complaints. Status: The patient is a dependent. Transition of care: patient was not received from another setting of care. 19:50 Acuity: JULIA Level 3 cz 19:50 Method Of Arrival: Walkin/Carried/Asstd cz Triage Assessment: 19:52 General: Appears uncomfortable. Pain: Location: back Pain currently is 8 out of 10 on a cz pain scale. Pt Declines HIV testing. 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 control - PMHx: none; - PSHx: ; - Social history: Smoking status: Patient states was never smoker of tobacco. No barriers to communication noted, The patient speaks fluent Sinhala, Speaks appropriately for age. - Family history: Not pertinent. - : The pt / caregiver states he / she is not on anticoagulants. Home medication list is obtained from the patient. - Exposure Risk Screening:: None identified. Screenin:29 Screening information is obtained from the patient. Fall risk: No risks identified. cjh Assistance ADL's: requires no assistance with activities of daily living. Abuse/DV Screen: The patient / caregiver reports he/she is: not in a situation that causes fear, pain or injury. Nutritional screening: No deficits noted. Advance Directives: There is no active DNR order. home support is adequate. Assessment: 20:29 General: Appears in no apparent distress, comfortable, Behavior is appropriate for age, cjh cooperative. Pain: Location: posterior aspect of right lateral abdomen and anterior aspect of right lateral abdomen Pain currently is 8 out of 10 on a pain scale. Respiratory: Airway is patent Respiratory effort is even, unlabored, Respiratory pattern is regular, symmetrical. GI: Abdomen is non- distended Bowel sounds present X 4 quads. Abd is soft and non tender X 4 quads. Musculoskeletal: Range of motion intact in all extremities. 21:10 General: Pt laying in bed talking on phone. States "I feel so much better". Bolus ld5 started per orders. Will continue to monitor. 21:53 General: returned from CT, tolerated well, awaiting results, friends at bedside, will [facility] continue to monitor. 22:36 General: Pt ambulated to bathroom. Tolerated well. Reports minimal pain. Resting ld5 comfortably in bed. Friends at bedside. Will continue to monitor. 23:05 General: Appears in no apparent distress, Behavior is cooperative. Pain: Pain currently ld5 is 2 out of 10 on a pain scale. Neurological: Level of Consciousness is awake, alert. Respiratory: Airway is patent Respiratory effort is even, unlabored. Vital Signs: 19:42 BP 107 / 71; Pulse 72; Resp 18 S; Temp 97.9(O); Pulse Ox 99% on R/A; Weight 53.52 kg gr2 (R); Height 4 ft. 11 in. (149.86 cm) (R); Pain 9/10; 23:05 BP 112 / 71; Pulse 74; Resp 16; Temp 97.8; Pulse Ox 100% on R/A; Pain 2/10; ld5 19:42 Body Mass Index 23.83 (53.52 kg, 149.86 cm) gr2 Vitals: 19:42 Log In Time: July 20, 2016 at 19:42. gr2 ED Course: 19:42 Patient visited by Albina Brock. gr2 19:42 Madison is Private Physician. gr2 19:42 Patient moved to Waiting gr2 19:44 Patient visited by Albina Brock. gr2 19:44 Patient moved to Pre RCE gr2 19:51 Triage Initiated cz 19:55 Tr[facility] Lion [facility]. ar2 19:55 Patient moved to Triage 2 cz 19:56 Matthew Posada DO is Attending Physician. ar2 19:56 Patient visited by Trino Lion PA-C. ar2 20:06 Patient moved to I5 / M5 cz 20:16 Patient visited by Latha Shah PCA. cln 20:16 Urinalysis Sent. cln 20:16 Urine Culture Sent. cln 20:29 The patient / caregiver is instructed regarding the plan of care and ED course. [facility] 20:29 Inserted saline lock: 20 gauge in left antecubital area and blood collected. No [facility] procedures done that require assistance. Labs drawn. (by ED staff). Sent per order to lab. 20:48 Patient visited by Alfreda Izaguirre RN. ld5 21:11 Patient visited by Alfreda Izaguirre RN. ld5 21:54 Patient visited by Nolvia Hurst RN. cjh 22:12 CT ABD & PELVIS: No Contrast Returned. EDMS 22:25 [facility] Payment Agreement was scanned into [employer] and attached to record. zo 22:37 Patient visited by Alfreda Izaguirre RN. ld5 22:43 Joycelyn Nunn MD is Referral Physician. ar2 23:05 Discontinued lock intact, bleeding controlled, pressure dressing applied, No ld5 redness/swelling at site. 23:07 Patient visited by Alfreda Izaguirre RN. ld5 07/21 11:30 T-Sheet-- Draft Copy was scanned into [employer] and attached to record. gb 11:30 Radiology Report was scanned into [employer] and attached to record. gb Administered Medications: 07/20 20:24 Drug: Ondansetron 4 mg [ondansetron HCl 2 mg/mL intravenous solution (2 mL)] Route: ld5 IVP; Site: left antecubital; 23:05 Follow up: Response: Nausea is decreased ld5 20:48 Drug: ketorolac 30 mg [ketorolac 30 mg/mL (1 mL) injection solution (1 mL)] Route: IVP; ld5 Site: left antecubital; 23:00 Follow up: Response: Med's dispensed home ld5 21:11 Drug: NS 0.9% 1000 ml [sodium chloride 0.9 % intravenous solution] Route: IV; Rate: ld5 bolus; Site: left antecubital; 22:59 Follow up: IV Status: Completed infusion; IV Intake: 1000ml ld5 22:59 Drug: HYDROcodone-acetaminophen 4 pack- 1 packets [hydrocodone 5 mg-acetaminophen 325 ld5 mg tablet (1 tabs)] {Co-Signature: [facility] (Nolvia Hurst RN).} Route: PO; 22:59 Follow up: Response: Med's dispensed home ld5 Point of Care Testing: Urine : 20:16 hCG Reading: Negative; Control Reading: Positive; cln Ranges: Intake: 22:59 IV: 1000.00ml; Total: 1000.00ml. ld5 Order Results: Lab Order: Urine Culture; SPEC'M 07/20/16 19:58 Test: URINE CULTURE; Value: <EXTERNAL COMMENT eCWMed> FULL REPORT IN LAB NOTES (eCW and Medent).; Status: F Test: URINE CULTURE; Value: ORGANISM 1: PROTEUS MIRABILIS; Status: F Test: URINE CULTURE; Value: PROTEUS MIRABILIS; Status: F Test: URINE CULTURE; Value: COLONY COUNT CFU/ml >100,000; Status: F Test: URINE CULTURE; Value: GRAM NEG SENSI - VITEK 80; Status: F Test: URINE CULTURE; Value: Method: VIT2; Status: F Test: URINE CULTURE; Value: TRIMETHOPRIM/SULFAMETHOXAZOLE >=320 R; Status: F Test: URINE CULTURE; Value: AMPICILLIN <=2 S; Status: F Test: URINE CULTURE; Value: GENTAMICIN <=1 S; Status: F Test: URINE CULTURE; Value: NITROFURANTOIN 128 R; Status: F Test: URINE CULTURE; Value: CEFAZOLIN <=4 S; Status: F Test: URINE CULTURE; Value: LEVOFLOXACIN <=0.12 S; Status: F Test: URINE CULTURE; Value: TOBRAMYCIN <=1 S; Status: F Test: URINE CULTURE; Value: CEFTRIAXONE <=1 S; Status: F Test: URINE CULTURE; Value: CEFTAZIDIME <=1 S; Status: F Test: URINE CULTURE; Value: AMPICILLIN/SULBACTAM <=2 S; Status: F Test: URINE CULTURE; Value: PIPERACILLIN/TAZOBACTAM <=4 S; Status: F Test: URINE CULTURE; Value: AZTREONAM <=1 S; Status: F Test: URINE CULTURE; Value: ERTAPENEM <=0.5 S; Status: F Test: URINE CULTURE; Value: MEROPENEM <=0.25 S; Status: F Test: URINE CULTURE; Value: TIGECYCLINE 4 R; Status: F Test: URINE CULTURE; Value: CEFEPIME <=1 S; Status: F Lab Order: Urinalysis; SPEC'M 07/20/16 19:58 Test: APPEARANCE, URINE; Value: CLEAR; Range: CLEAR; Status: F Test: COLOR, URINE; Value: YELLOW; Range: YELLOW; Status: F Test: PH,URINE; Value: 8.0; Range: 5.0-9.0; Units: UNITS; Status: F Test: SPECIFIC GRAVITY URINE AUTO; Value: 1.018; Range: 1.002-1.035; Status: F Test: PROTEIN, URINE AUTO; Value: 1+; Range: NEGATIVE; Abnormal: Above high normal; Units: mg/dL; Status: F Test: GLUCOSE, URINE (UA) AUTO; Value: NEGATIVE; Range: NEGATIVE; Units: mg/dL; Status: F Test: KETONE, URINE AUTO; Value: NEGATIVE; Range: NEGATIVE; Units: mg/dL; Status: F Test: UROBILINOGEN, URINE AUTO; Value: 0.2; Range: 0.0-2.0; Units: mg/dL; Status: F Test: BILIRUBIN, URINE AUTO; Value: NEGATIVE; Range: NEGATIVE; Status: F Test: NITRITE, URINE AUTO; Value: NEGATIVE; Range: NEGATIVE; Status: F Test: LEUKOCYTE ESTERASE, URINE AUTO; Value: TRACE; Range: NEGATIVE; Abnormal: Above high normal; Status: F Test: BLOOD, URINE BLOOD; Value: 3+; Range: NEGATIVE; Abnormal: Above high normal; Status: F Test: WBC, URINE AUTO; Value: 13; Range: 0-3; Abnormal: Above high normal; Units: /HPF; Status: F Test: RBC, URINE AUTO; Value: TNTC; Range: 0-3; Abnormal: Above high normal; Units: /HPF; Status: F Test: BACTERIA, URINE AUTO; Value: 1+; Range: NEGATIVE; Abnormal: Above high normal; Status: F Test: SQUAMOUS EPITHELIAL CELL UR AU; Value: 1; Range: 0-6; Units: /HPF; Status: F Test: MUCUS, URINE; Value: SMALL; Range: NEGATIVE; Status: F Test: HYALINE CAST, URINE AUTO; Value: 0; Range: 0-1; Units: /LPF; Status: F Test: AMORPHOUS SEDIMENT; Value: SMALL; Range: NEGATIVE; Abnormal: Above high normal; Status: F Lab Order: Amylase; SPEC'07/20/16 20:19 Test: AMYLASE; Value: 65; Range: 25-115; Units: U/L; Status: F Lab Order: Basic Metabolic Profile; SPEC'07/20/16 20:19 Test: GLUCOSE, FASTING; Value: 87; Range: 70-105; Units: MG/DL; Status: F Test: BLOOD UREA NITROGEN; Value: 8; Range: 7-18; Units: MG/DL; Status: F Test: CREATININE FOR GFR; Value: 0.92; Range: 0.55-1.02; Units: MG/DL; Status: F Test: GLOMERULAR FILTRATION RATE; Value: > 60.0; Range: >60; Status: F Test: SODIUM LEVEL; Value: 142; Range: 136-145; Units: MEQ/L; Status: F Test: POTASSIUM SERUM; Value: 3.8; Range: 3.5-5.1; Units: MEQ/L; Status: F Test: CHLORIDE LEVEL; Value: 106; Range: 98-107; Units: MEQ/L; Status: F Test: CARBON DIOXIDE LEVEL; Value: 28; Range: 21-32; Units: MEQ/L; Status: F Test: ANION GAP; Value: 8; Range: 8-16; Units: MEQ/L; Status: F Test: CALCIUM LEVEL; Value: 9.0; Range: 8.5-10.1; Units: MG/DL; Status: F Test Note: ; Units are mL/min/1.73 m2 Chronic Kidney Disease Staging per NKF: Stage I & II GFR >=60 Normal to Mildly Decreased Stage III GFR 30-59 Moderately Decreased Stage IV GFR 15-29 Severely Decreased Stage V GFR <15 Very Little GFR Left ESRD GFR <15 on MOLD CLEANING AND STORAGE SUPERVISOR Lab Order: CBC with Diff; SPEC'07/20/16 20:19 Test: WHITE BLOOD COUNT; Value: 8.6; Range: 4.0-10.0; Units: K/mm3; Status: F Test: RED BLOOD COUNT; Value: 4.67; Range: 4.00-5.40; Units: M/mm3; Status: F Test: HEMOGLOBIN; Value: 13.8; Range: 12.0-16.0; Units: g/dl; Status: F Test: HEMATOCRIT; Value: 42.3; Range: 36.0-47.0; Units: %; Status: F Test: MEAN CORPUSCULAR VOLUME; Value: 90.5; Range: 80.0-96.0; Units: fl; Status: F Test: MEAN CORPUSCULAR HEMOGLOBIN; Value: 29.6; Range: 27.0-33.0; Units: pg; Status: F Test: MEAN CORPUSCULAR HGB CONC; Value: 32.8; Range: 32.0-36.5; Units: g/dl; Status: F Test: RED CELL DISTRIBUTION WIDTH; Value: 13.2; Range: 11.5-14.5; Units: %; Status: F Test: PLATELET COUNT, AUTOMATED; Value: 208; Range: 150-450; Units: k/mm3; Status: F Test: NEUTROPHILS %; Value: 61.4; Range: 36.0-66.0; Units: %; Status: F Test: LYMPH %; Value: 28.8; Range: 24.0-44.0; Units: %; Status: F Test: MONO %; Value: 5.1; Range: 0.0-5.0; Abnormal: Above high normal; Units: %; Status: F Test: EOS %; Value: 1.0; Range: 0.0-3.0; Units: %; Status: F Test: BASO %; Value: 0.5; Range: 0.0-1.0; Units: %; Status: F Test: LARGE UNSTAINED CELL %; Value: 3.0; Range: 0.0-4.0; Units: %; Status: F Test: NEUTROPHILS #; Value: 5.3; Range: 1.8-7.7; Units: K/mm3; Status: F Test: LYMPH #; Value: 2.5; Range: 1.5-6.5; Units: K/mm3; Status: F Test: MONO #; Value: 0.4; Range: 0.0-0.8; Units: K/mm3; Status: F Test: EOS #; Value: 0.1; Range: 0.0-0.50; Units: K/mm3; Status: F Test: BASO #; Value: 0.0; Range: 0.0-0.2; Units: K/mm3; Status: F Test: LARGE UNSTAINED CELL #; Value: 0.3; Range: 0.0-0.4; Units: K/mm3; Status: F Lab Order: Lipase; SPEC' 07/20/16 20:19 Test: LIPASE; Value: 96; Range: 73-393; Units: U/L; Status: F Lab Order: Liver Profile; SPEC' 07/20/16 20:19 Test: AST/SGOT; Value: 15; Range: 15-37; Units: U/L; Status: F Test: ALT/SGPT; Value: 20; Range: 12-78; Units: U/L; Status: F Test: ALKALINE PHOSPHATASE; Value: 66; Range: 45-117; Units: U/L; Status: F Test: BILIRUBIN,TOTAL; Value: 0.2; Range: 0.2-1.0; Units: MG/DL; Status: F Test: BILIRUBIN,DIRECT; Value: < 0.1; Range: 0.0-0.2; Units: MG/DL; Status: F Test: TOTAL PROTEIN; Value: 6.8; Range: 6.4-8.2; Units: GM/DL; Status: F Test: ALBUMIN; Value: 3.5; Range: 3.2-5.2; Units: GM/DL; Status: F Test: ALBUMIN/GLOBULIN RATIO; Value: 1.06; Range: 1.00-1.93; Status: F Radiology Order: CT ABD & PELVIS: No Contrast Test: CT ABD & PELVIS: No Contrast REASON FOR EXAMINATION: right renal colic; ; CT of the abdomen and pelvis without contrast; Clinical statement: Pain.; Technique: Multiple axial CT images were obtained from the base of the lungs to the floor of the pelv; is utilizing 5 mm axial slices without administration of contrast. Coronal and sagittal reconstructio; ns were also obtained.; No comparison is available.; Findings:; Chest: The visualized lung bases are clear.; Abdomen: The kidneys are normal in size bilaterally. There is moderate right-sided hydronephrosis cau; sed by a 4 mm obstructing stone at the right ureteropelvic junction. The liver, spleen, pancreas, gal; lbladder and adrenal glands are unremarkable. The aorta demonstrates normal caliber and contour. Ther; e is no abdominal lymphadenopathy or ascites.; Pelvis: The bowel is unremarkable, with no obstructive or inflammatory changes. The appendix is mary; l. The urinary bladder is within normal limits. There is no pelvic lymphadenopathy or ascites. The ot; her pelvic structures appear unremarkable.; Bones: There are no suspicious osseous abnormalities seen.; Impression: Mild right-sided hydronephrosis caused by a 4 mm obstructing stone at the right ureterope; lvic junction.; ; Outcome: 22:44 Discharge ordered by Provider. ar2 23:05 Discharge Assessment: Patient awake, alert and oriented x 3. No cognitive and/or ld5 functional deficits noted. Patient verbalized understanding of disposition instructions. patient administered narcotics - no. The following High Risk Discharge criteria are identified: None. Discharged to home ambulatory, with friend. Condition: stable. Discharge instructions given to patient, Instructed on discharge instructions, follow up and referral plans. medication usage, no driving heavy equipment, Demonstrated understanding of instructions, medications, Pt was receptive of discharge instructions/ teaching. Prescriptions given X 4. CT Study completed. Property :Personal belongings accompany Pt. 23:07 Patient left the ED. ld5 Addendum: 07/23/2016 10:39 Narrative: Urine culture results reviewed with Dr. Rondon and Rx written for Keflex kcs 500 mg po QID x 7 days. Message left for patient to call us concerning where she would like Rx called to. 11:33 Narrative: Patient called back and requests [facility] - Rx called in. kcs Signatures: Dispatcher [employer] EDCielo Cuenca RN RN Oleg Ovalles RN RN cz Mary Morton, Joselito Reg Krishna Chavez Aaron, PA-C PA-Donny ar2 Alfreda Izaguirre RN RN ld5 Nolvia Hurst,DAVIDE RN cj Albina Brock gr2 Latha Shah, FOREST FIRE MANAGEMENT OFFICER FOREST FIRE MANAGEMENT OFFICER cln Nolvia Hurst RN [facility] MTDD
--- NOTE | 2016-07-23 11:35 | EDDOCDS ---
Physician Documentation [facility] Name: Chen Mortensen Age: 26 yrs Sex: Female : 1990 Arrival Date: 07/20/2016 Time: 19:40 Bed I5 / M5 Private MD: Madison Disposition: 07/20/16 22:44 Discharged to Home/Self Care. Impression: Hydronephrosis with renal and ureteral calculous obstruction - right 4mm UPJ stone with mild hydronephrosis. - Condition is Stable. - Discharge Instructions: Kidney Stones. - Prescriptions for Ibuprofen 800 mg Oral Tablet - take 1 tablet by ORAL route every 8 hours As needed take with food; 30 tablet. [place] 5- 325 mg Oral Tablet - take 1 tablet by ORAL route every 6 hours As needed MDD: 4 tabs; 16 tablet. Flomax 0.4 mg Oral Capsule, Sust. Release 24 hr - take 1 capsule by ORAL route once daily 1/2 hour following the same meal each day; 15 capsule. ZOFRAN ODT 4 mg Oral - dissolve 1 tablet by ORAL route every 8 hours As needed do not chew, do not swallow whole; 10 tablet. - Medication Reconciliation, Local Pharmacy Hours form. - Follow up: Joycelyn Nunn MD; When: Call to arrange an appointment; Reason: Recheck today's complaints, Continuance of care. Follow up: Emergency Department; When: As needed; Reason: Worsening of conditions. - Problem is new. - Symptoms have improved. - Notes: call saturday for follow up appointment. drink plenty of fluids Historical: - Allergies: No known drug Allergies; - Home Meds: 1. control - PMHx: none; - PSHx: ; - Social history: Smoking status: Patient states was never smoker of tobacco. No barriers to communication noted, The patient speaks fluent Czech, Speaks appropriately for age. - Family history: Not pertinent. - : The pt / caregiver states he / she is not on anticoagulants. Home medication list is obtained from the patient. - Exposure Risk Screening:: None identified. 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 11 in. (149.86 cm) (R); Pain 9/10; 23:05 BP 112 / 71; Pulse 74; Resp 16; Temp 97.8; Pulse Ox 100% on R/A; Pain 2/10; ld5 19:42 Body Mass Index 23.83 (53.52 kg, 149.86 cm) gr2 MDM: 19:57 UCG by Nursing ordered. cz 19:58 Urinalysis Ordered. EDMS 19:58 Urine Culture Ordered. EDMS 20:03 Undress patient appropriately for examination ordered. ar2 20:03 IV Saline Lock ordered. ar2 20:03 Ondansetron 4 mg IVP once ordered. ar2 20:05 Amylase Ordered. EDMS 20:05 Basic Metabolic Profile Ordered. EDMS 20:05 CBC with Diff Ordered. EDMS 20:05 Lipase Ordered. EDMS 20:05 Liver Profile Ordered. EDMS 20:06 NOTHING BY MOUTH+DIET ordered. EDMS 20:42 ketorolac 30 mg IVP once ordered. ar2 20:52 Urinalysis Reviewed. ar2 20:52 CBC with Diff Reviewed. ar2 20:52 Amylase Reviewed. ar2 20:52 Basic Metabolic Profile Reviewed. ar2 20:52 Lipase Reviewed. ar2 20:52 Liver Profile Reviewed. ar2 20:53 NS 0.9% 1000 ml IV at bolus once ordered. ar2 20:53 CT ABD & PELVIS: No Contrast Ordered. EDMS 21:48 Financial registration complete. zo 22:25 [facility] Payment Agreement was scanned into [employer] and attached to record. zo 22:42 Dispense Urine Strainer ordered. ar2 22:47 HYDROcodone-acetaminophen 4 pack- 5 mg-325 mg 1 packets PO Per package directions; ar2 Dispense with patient. 1 po q4h prn for pain ordered. 22:48 CT ABD & PELVIS: No Contrast Reviewed. ar2 07/21 11:30 T-Sheet-- Draft Copy was scanned into [employer] and attached to record. gb 11:30 Radiology Report was scanned into [employer] and attached to record. gb Point of Care Testing: Urine : 07/20 20:16 hCG Reading: Negative; Control Reading: Positive; cln Ranges: Administered Medications: 20:24 Drug: Ondansetron 4 mg [ondansetron HCl 2 mg/mL intravenous solution (2 mL)] Route: ld5 IVP; Site: left antecubital; 23:05 Follow up: Response: Nausea is decreased ld5 20:48 Drug: ketorolac 30 mg [ketorolac 30 mg/mL (1 mL) injection solution (1 mL)] Route: IVP; ld5 Site: left antecubital; 23:00 Follow up: Response: Med's dispensed home ld5 21:11 Drug: NS 0.9% 1000 ml [sodium chloride 0.9 % intravenous solution] Route: IV; Rate: ld5 bolus; Site: left antecubital; 22:59 Follow up: IV Status: Completed infusion; IV Intake: 1000ml ld5 22:59 Drug: HYDROcodone-acetaminophen 4 pack- 1 packets [hydrocodone 5 mg-acetaminophen 325 ld5 mg tablet (1 tabs)] {Co-Signature: [facility] (Nolvia Hurst RN).} Route: PO; 22:59 Follow up: Response: Med's dispensed home ld5 Signatures: Dispatcher [employer] EDMS Oleg Siddiqui RN RN cz Mary Morton, Reg Reg gb Krishna Reilly Aaron, PA-C PA-C ar2 Alfreda Izaguirre RN RN [facility] Nolvia Hurst RN RN [facility] Nolvia Hurst RN [facility] The chart was reviewed and I authenticate all verbal orders and agree with the evaluation and treatment provided.Attachments: 22:25 [facility] Payment Agreement zo 07/21 11:30 T-Sheet-- Draft Copy gb MTDD
--- NOTE | 2016-07-23 11:36 | EDDOCDS ---
Nurse's Notes [facility] Name: Chen Mortensen Age: 26 yrs Sex: Female : 1990 Arrival Date: 07/20/2016 Time: 19:40 Bed I5 / M5 Private MD: Madison Diagnosis: Hydronephrosis with renal and ureteral calculous obstruction-right 4mm UPJ stone with mild hydronephrosis Presentation: 07/20 19:50 Presenting complaint: Patient states: stomach pain since earlier today pain back side cz and worse now pt denies UTI symptoms. Acute neurological deficits are not present. Mechanism of Injury: No Mechanism of Injury. Adult Sepsis Screening: The patient does not have new or worsening altered mentation. Patient's respiratory rate is less than 22. Systolic blood pressure is greater than 100. Patient has a qSOFA score of 0- Negative Sepsis Screen. Suicide/Homicide risk assessment- the patient denies having any suicidal and/or homicidal ideations and does not present with any other emotional, behavioral or mental health complaints. Status: The patient is a dependent. Transition of care: patient was not received from another setting of care. 19:50 Acuity: JULIA Level 3 cz 19:50 Method Of Arrival: Walkin/Carried/Asstd cz Triage Assessment: 19:52 General: Appears uncomfortable. Pain: Location: back Pain currently is 8 out of 10 on a cz pain scale. Pt Declines HIV testing. 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 control - PMHx: none; - PSHx: ; - Social history: Smoking status: Patient states was never smoker of tobacco. No barriers to communication noted, The patient speaks fluent Romansh, Speaks appropriately for age. - Family history: Not pertinent. - : The pt / caregiver states he / she is not on anticoagulants. Home medication list is obtained from the patient. - Exposure Risk Screening:: None identified. Screenin:29 Screening information is obtained from the patient. Fall risk: No risks identified. cjh Assistance ADL's: requires no assistance with activities of daily living. Abuse/DV Screen: The patient / caregiver reports he/she is: not in a situation that causes fear, pain or injury. Nutritional screening: No deficits noted. Advance Directives: There is no active DNR order. home support is adequate. Assessment: 20:29 General: Appears in no apparent distress, comfortable, Behavior is appropriate for age, cjh cooperative. Pain: Location: posterior aspect of right lateral abdomen and anterior aspect of right lateral abdomen Pain currently is 8 out of 10 on a pain scale. Respiratory: Airway is patent Respiratory effort is even, unlabored, Respiratory pattern is regular, symmetrical. GI: Abdomen is non- distended Bowel sounds present X 4 quads. Abd is soft and non tender X 4 quads. Musculoskeletal: Range of motion intact in all extremities. 21:10 General: Pt laying in bed talking on phone. States "I feel so much better". Bolus ld5 started per orders. Will continue to monitor. 21:53 General: returned from CT, tolerated well, awaiting results, friends at bedside, will [facility] continue to monitor. 22:36 General: Pt ambulated to bathroom. Tolerated well. Reports minimal pain. Resting ld5 comfortably in bed. Friends at bedside. Will continue to monitor. 23:05 General: Appears in no apparent distress, Behavior is cooperative. Pain: Pain currently ld5 is 2 out of 10 on a pain scale. Neurological: Level of Consciousness is awake, alert. Respiratory: Airway is patent Respiratory effort is even, unlabored. Vital Signs: 19:42 BP 107 / 71; Pulse 72; Resp 18 S; Temp 97.9(O); Pulse Ox 99% on R/A; Weight 53.52 kg gr2 (R); Height 4 ft. 11 in. (149.86 cm) (R); Pain 9/10; 23:05 BP 112 / 71; Pulse 74; Resp 16; Temp 97.8; Pulse Ox 100% on R/A; Pain 2/10; ld5 19:42 Body Mass Index 23.83 (53.52 kg, 149.86 cm) gr2 Vitals: 19:42 Log In Time: July 20, 2016 at 19:42. gr2 ED Course: 19:42 Patient visited by Albina Brock. gr2 19:42 Madison is Private Physician. gr2 19:42 Patient moved to Waiting gr2 19:44 Patient visited by Albina Brock. gr2 19:44 Patient moved to Pre RCE gr2 19:51 Triage Initiated cz 19:55 [facility] ar2 19:55 Patient moved to Triage 2 cz 19:56 Mathtew Posada DO is Attending Physician. ar2 19:56 Patient visited by Trino Lion PA-C. ar2 20:06 Patient moved to I5 / M5 cz 20:16 Patient visited by Latha Shah PCA. cln 20:16 Urinalysis Sent. cln 20:16 Urine Culture Sent. cln 20:29 The patient / caregiver is instructed regarding the plan of care and ED course. [facility] 20:29 Inserted saline lock: 20 gauge in left antecubital area and blood collected. No [facility] procedures done that require assistance. Labs drawn. (by ED staff). Sent per order to lab. 20:48 Patient visited by Alfreda Izaguirre RN. ld5 21:11 Patient visited by Alfreda Izaguirre RN. ld5 21:54 Patient visited by Nolvia Hurst RN. cjh 22:12 CT ABD & PELVIS: No Contrast Returned. EDMS 22:25 [facility] Payment Agreement was scanned into [employer] and attached to record. zo 22:37 Patient visited by Alfreda Izaguirre RN. ld5 22:43 Joycelyn Nunn MD is Referral Physician. ar2 23:05 Discontinued lock intact, bleeding controlled, pressure dressing applied, No ld5 redness/swelling at site. 23:07 Patient visited by Alfreda Izaguirre RN. ld5 07/21 11:30 T-Sheet-- Draft Copy was scanned into [employer] and attached to record. gb 11:30 Radiology Report was scanned into [employer] and attached to record. gb Administered Medications: 07/20 20:24 Drug: Ondansetron 4 mg [ondansetron HCl 2 mg/mL intravenous solution (2 mL)] Route: ld5 IVP; Site: left antecubital; 23:05 Follow up: Response: Nausea is decreased ld5 20:48 Drug: ketorolac 30 mg [ketorolac 30 mg/mL (1 mL) injection solution (1 mL)] Route: IVP; ld5 Site: left antecubital; 23:00 Follow up: Response: Med's dispensed home ld5 21:11 Drug: NS 0.9% 1000 ml [sodium chloride 0.9 % intravenous solution] Route: IV; Rate: ld5 bolus; Site: left antecubital; 22:59 Follow up: IV Status: Completed infusion; IV Intake: 1000ml ld5 22:59 Drug: HYDROcodone-acetaminophen 4 pack- 1 packets [hydrocodone 5 mg-acetaminophen 325 ld5 mg tablet (1 tabs)] {Co-Signature: [facility] (Nolvia Hurst RN).} Route: PO; 22:59 Follow up: Response: Med's dispensed home ld5 Point of Care Testing: Urine : 20:16 hCG Reading: Negative; Control Reading: Positive; cln Ranges: Intake: 22:59 IV: 1000.00ml; Total: 1000.00ml. ld5 Order Results: Lab Order: Urine Culture; SPEC'M 07/20/16 19:58 Test: URINE CULTURE; Value: <EXTERNAL COMMENT eCWMed> FULL REPORT IN LAB NOTES (eCW and Medent).; Status: F Test: URINE CULTURE; Value: ORGANISM 1: PROTEUS MIRABILIS; Status: F Test: URINE CULTURE; Value: PROTEUS MIRABILIS; Status: F Test: URINE CULTURE; Value: COLONY COUNT CFU/ml >100,000; Status: F Test: URINE CULTURE; Value: GRAM NEG SENSI - VITEK 80; Status: F Test: URINE CULTURE; Value: Method: VIT2; Status: F Test: URINE CULTURE; Value: TRIMETHOPRIM/SULFAMETHOXAZOLE >=320 R; Status: F Test: URINE CULTURE; Value: AMPICILLIN <=2 S; Status: F Test: URINE CULTURE; Value: GENTAMICIN <=1 S; Status: F Test: URINE CULTURE; Value: NITROFURANTOIN 128 R; Status: F Test: URINE CULTURE; Value: CEFAZOLIN <=4 S; Status: F Test: URINE CULTURE; Value: LEVOFLOXACIN <=0.12 S; Status: F Test: URINE CULTURE; Value: TOBRAMYCIN <=1 S; Status: F Test: URINE CULTURE; Value: CEFTRIAXONE <=1 S; Status: F Test: URINE CULTURE; Value: CEFTAZIDIME <=1 S; Status: F Test: URINE CULTURE; Value: AMPICILLIN/SULBACTAM <=2 S; Status: F Test: URINE CULTURE; Value: PIPERACILLIN/TAZOBACTAM <=4 S; Status: F Test: URINE CULTURE; Value: AZTREONAM <=1 S; Status: F Test: URINE CULTURE; Value: ERTAPENEM <=0.5 S; Status: F Test: URINE CULTURE; Value: MEROPENEM <=0.25 S; Status: F Test: URINE CULTURE; Value: TIGECYCLINE 4 R; Status: F Test: URINE CULTURE; Value: CEFEPIME <=1 S; Status: F Lab Order: Urinalysis; SPEC'M 07/20/16 19:58 Test: APPEARANCE, URINE; Value: CLEAR; Range: CLEAR; Status: F Test: COLOR, URINE; Value: YELLOW; Range: YELLOW; Status: F Test: PH,URINE; Value: 8.0; Range: 5.0-9.0; Units: UNITS; Status: F Test: SPECIFIC GRAVITY URINE AUTO; Value: 1.018; Range: 1.002-1.035; Status: F Test: PROTEIN, URINE AUTO; Value: 1+; Range: NEGATIVE; Abnormal: Above high normal; Units: mg/dL; Status: F Test: GLUCOSE, URINE (UA) AUTO; Value: NEGATIVE; Range: NEGATIVE; Units: mg/dL; Status: F Test: KETONE, URINE AUTO; Value: NEGATIVE; Range: NEGATIVE; Units: mg/dL; Status: F Test: UROBILINOGEN, URINE AUTO; Value: 0.2; Range: 0.0-2.0; Units: mg/dL; Status: F Test: BILIRUBIN, URINE AUTO; Value: NEGATIVE; Range: NEGATIVE; Status: F Test: NITRITE, URINE AUTO; Value: NEGATIVE; Range: NEGATIVE; Status: F Test: LEUKOCYTE ESTERASE, URINE AUTO; Value: TRACE; Range: NEGATIVE; Abnormal: Above high normal; Status: F Test: BLOOD, URINE BLOOD; Value: 3+; Range: NEGATIVE; Abnormal: Above high normal; Status: F Test: WBC, URINE AUTO; Value: 13; Range: 0-3; Abnormal: Above high normal; Units: /HPF; Status: F Test: RBC, URINE AUTO; Value: TNTC; Range: 0-3; Abnormal: Above high normal; Units: /HPF; Status: F Test: BACTERIA, URINE AUTO; Value: 1+; Range: NEGATIVE; Abnormal: Above high normal; Status: F Test: SQUAMOUS EPITHELIAL CELL UR AU; Value: 1; Range: 0-6; Units: /HPF; Status: F Test: MUCUS, URINE; Value: SMALL; Range: NEGATIVE; Status: F Test: HYALINE CAST, URINE AUTO; Value: 0; Range: 0-1; Units: /LPF; Status: F Test: AMORPHOUS SEDIMENT; Value: SMALL; Range: NEGATIVE; Abnormal: Above high normal; Status: F Lab Order: Amylase; SPEC'07/20/16 20:19 Test: AMYLASE; Value: 65; Range: 25-115; Units: U/L; Status: F Lab Order: Basic Metabolic Profile; SPEC'07/20/16 20:19 Test: GLUCOSE, FASTING; Value: 87; Range: 70-105; Units: MG/DL; Status: F Test: BLOOD UREA NITROGEN; Value: 8; Range: 7-18; Units: MG/DL; Status: F Test: CREATININE FOR GFR; Value: 0.92; Range: 0.55-1.02; Units: MG/DL; Status: F Test: GLOMERULAR FILTRATION RATE; Value: > 60.0; Range: >60; Status: F Test: SODIUM LEVEL; Value: 142; Range: 136-145; Units: MEQ/L; Status: F Test: POTASSIUM SERUM; Value: 3.8; Range: 3.5-5.1; Units: MEQ/L; Status: F Test: CHLORIDE LEVEL; Value: 106; Range: 98-107; Units: MEQ/L; Status: F Test: CARBON DIOXIDE LEVEL; Value: 28; Range: 21-32; Units: MEQ/L; Status: F Test: ANION GAP; Value: 8; Range: 8-16; Units: MEQ/L; Status: F Test: CALCIUM LEVEL; Value: 9.0; Range: 8.5-10.1; Units: MG/DL; Status: F Test Note: ; Units are mL/min/1.73 m2 Chronic Kidney Disease Staging per NKF: Stage I & II GFR >=60 Normal to Mildly Decreased Stage III GFR 30-59 Moderately Decreased Stage IV GFR 15-29 Severely Decreased Stage V GFR <15 Very Little GFR Left ESRD GFR <15 on MOBILITY ARCHITECT MANAGER Lab Order: CBC with Diff; SPEC'07/20/16 20:19 Test: WHITE BLOOD COUNT; Value: 8.6; Range: 4.0-10.0; Units: K/mm3; Status: F Test: RED BLOOD COUNT; Value: 4.67; Range: 4.00-5.40; Units: M/mm3; Status: F Test: HEMOGLOBIN; Value: 13.8; Range: 12.0-16.0; Units: g/dl; Status: F Test: HEMATOCRIT; Value: 42.3; Range: 36.0-47.0; Units: %; Status: F Test: MEAN CORPUSCULAR VOLUME; Value: 90.5; Range: 80.0-96.0; Units: fl; Status: F Test: MEAN CORPUSCULAR HEMOGLOBIN; Value: 29.6; Range: 27.0-33.0; Units: pg; Status: F Test: MEAN CORPUSCULAR HGB CONC; Value: 32.8; Range: 32.0-36.5; Units: g/dl; Status: F Test: RED CELL DISTRIBUTION WIDTH; Value: 13.2; Range: 11.5-14.5; Units: %; Status: F Test: PLATELET COUNT, AUTOMATED; Value: 208; Range: 150-450; Units: k/mm3; Status: F Test: NEUTROPHILS %; Value: 61.4; Range: 36.0-66.0; Units: %; Status: F Test: LYMPH %; Value: 28.8; Range: 24.0-44.0; Units: %; Status: F Test: MONO %; Value: 5.1; Range: 0.0-5.0; Abnormal: Above high normal; Units: %; Status: F Test: EOS %; Value: 1.0; Range: 0.0-3.0; Units: %; Status: F Test: BASO %; Value: 0.5; Range: 0.0-1.0; Units: %; Status: F Test: LARGE UNSTAINED CELL %; Value: 3.0; Range: 0.0-4.0; Units: %; Status: F Test: NEUTROPHILS #; Value: 5.3; Range: 1.8-7.7; Units: K/mm3; Status: F Test: LYMPH #; Value: 2.5; Range: 1.5-6.5; Units: K/mm3; Status: F Test: MONO #; Value: 0.4; Range: 0.0-0.8; Units: K/mm3; Status: F Test: EOS #; Value: 0.1; Range: 0.0-0.50; Units: K/mm3; Status: F Test: BASO #; Value: 0.0; Range: 0.0-0.2; Units: K/mm3; Status: F Test: LARGE UNSTAINED CELL #; Value: 0.3; Range: 0.0-0.4; Units: K/mm3; Status: F Lab Order: Lipase; SPEC' 07/20/16 20:19 Test: LIPASE; Value: 96; Range: 73-393; Units: U/L; Status: F Lab Order: Liver Profile; SPEC' 07/20/16 20:19 Test: AST/SGOT; Value: 15; Range: 15-37; Units: U/L; Status: F Test: ALT/SGPT; Value: 20; Range: 12-78; Units: U/L; Status: F Test: ALKALINE PHOSPHATASE; Value: 66; Range: 45-117; Units: U/L; Status: F Test: BILIRUBIN,TOTAL; Value: 0.2; Range: 0.2-1.0; Units: MG/DL; Status: F Test: BILIRUBIN,DIRECT; Value: < 0.1; Range: 0.0-0.2; Units: MG/DL; Status: F Test: TOTAL PROTEIN; Value: 6.8; Range: 6.4-8.2; Units: GM/DL; Status: F Test: ALBUMIN; Value: 3.5; Range: 3.2-5.2; Units: GM/DL; Status: F Test: ALBUMIN/GLOBULIN RATIO; Value: 1.06; Range: 1.00-1.93; Status: F Radiology Order: CT ABD & PELVIS: No Contrast Test: CT ABD & PELVIS: No Contrast REASON FOR EXAMINATION: right renal colic; ; CT of the abdomen and pelvis without contrast; Clinical statement: Pain.; Technique: Multiple axial CT images were obtained from the base of the lungs to the floor of the pelv; is utilizing 5 mm axial slices without administration of contrast. Coronal and sagittal reconstructio; ns were also obtained.; No comparison is available.; Findings:; Chest: The visualized lung bases are clear.; Abdomen: The kidneys are normal in size bilaterally. There is moderate right-sided hydronephrosis cau; sed by a 4 mm obstructing stone at the right ureteropelvic junction. The liver, spleen, pancreas, gal; lbladder and adrenal glands are unremarkable. The aorta demonstrates normal caliber and contour. Ther; e is no abdominal lymphadenopathy or ascites.; Pelvis: The bowel is unremarkable, with no obstructive or inflammatory changes. The appendix is mary; l. The urinary bladder is within normal limits. There is no pelvic lymphadenopathy or ascites. The ot; her pelvic structures appear unremarkable.; Bones: There are no suspicious osseous abnormalities seen.; Impression: Mild right-sided hydronephrosis caused by a 4 mm obstructing stone at the right ureterope; lvic junction.; ; Outcome: 22:44 Discharge ordered by Provider. ar2 23:05 Discharge Assessment: Patient awake, alert and oriented x 3. No cognitive and/or ld5 functional deficits noted. Patient verbalized understanding of disposition instructions. patient administered narcotics - no. The following High Risk Discharge criteria are identified: None. Discharged to home ambulatory, with friend. Condition: stable. Discharge instructions given to patient, Instructed on discharge instructions, follow up and referral plans. medication usage, no driving heavy equipment, Demonstrated understanding of instructions, medications, Pt was receptive of discharge instructions/ teaching. Prescriptions given X 4. CT Study completed. Property :Personal belongings accompany Pt. 23:07 Patient left the ED. ld5 Addendum: 07/23/2016 10:39 Narrative: Urine culture results reviewed with Dr. Rondon and Rx written for Keflex kcs 500 mg po QID x 7 days. Message left for patient to call us concerning where she would like Rx called to. 11:33 Narrative: Patient called back and requests [facility] - Rx called in. kcs Signatures: Dispatcher [employer] EDCielo Cuenca RN RN Oleg Ovalles RN RN cz Mary Morton, Joselito Reg Krishna Chavez Aaron, PA-C PA-Donny ar2 Alfreda Izaguirre RN RN ld5 Nolvia Hurst,RN RN cj Albina Brock gr2 Alyssa, Latha, CUSTOMS AND IMMIGRATION OFFICER CUSTOMS AND IMMIGRATION OFFICER cln Nolvia Hurst RN [facility] Chart Complete MTDD
--- NOTE | 2016-07-23 11:36 | EDDOCDS ---
Physician Documentation [facility] Name: Chen Mortensen Age: 26 yrs Sex: Female : 1990 Arrival Date: 07/20/2016 Time: 19:40 Bed I5 / M5 Private MD: Madison Disposition: 07/20/16 22:44 Discharged to Home/Self Care. Impression: Hydronephrosis with renal and ureteral calculous obstruction - right 4mm UPJ stone with mild hydronephrosis. - Condition is Stable. - Discharge Instructions: Kidney Stones. - Prescriptions for Ibuprofen 800 mg Oral Tablet - take 1 tablet by ORAL route every 8 hours As needed take with food; 30 tablet. Brusett 5- 325 mg Oral Tablet - take 1 tablet by ORAL route every 6 hours As needed MDD: 4 tabs; 16 tablet. Flomax 0.4 mg Oral Capsule, Sust. Release 24 hr - take 1 capsule by ORAL route once daily 1/2 hour following the same meal each day; 15 capsule. ZOFRAN ODT 4 mg Oral - dissolve 1 tablet by ORAL route every 8 hours As needed do not chew, do not swallow whole; 10 tablet. - Medication Reconciliation, Local Pharmacy Hours form. - Follow up: Joycelyn Nunn MD; When: Call to arrange an appointment; Reason: Recheck today's complaints, Continuance of care. Follow up: Emergency Department; When: As needed; Reason: Worsening of conditions. - Problem is new. - Symptoms have improved. - Notes: call saturday for follow up appointment. drink plenty of fluids Historical: - Allergies: No known drug Allergies; - Home Meds: 1. control - PMHx: none; - PSHx: ; - Social history: Smoking status: Patient states was never smoker of tobacco. No barriers to communication noted, The patient speaks fluent Wolof, Speaks appropriately for age. - Family history: Not pertinent. - : The pt / caregiver states he / she is not on anticoagulants. Home medication list is obtained from the patient. - Exposure Risk Screening:: None identified. WARE SERVER: 07/20 19:52 no periods due to control pill cz Vital Signs: 19:42 BP 107 / 71; Pulse 72; Resp 18 S; Temp 97.9(O); Pulse Ox 99% on R/A; Weight 53.52 kg / gr2 117.99 lbs (R); Height 4 ft. 11 in. (149.86 cm) (R); Pain 9/10; 23:05 BP 112 / 71; Pulse 74; Resp 16; Temp 97.8; Pulse Ox 100% on R/A; Pain 2/10; ld5 19:42 Body Mass Index 23.83 (53.52 kg, 149.86 cm) gr2 MDM: 19:57 UCG by Nursing ordered. cz 19:58 Urinalysis Ordered. EDMS 19:58 Urine Culture Ordered. EDMS 20:03 Undress patient appropriately for examination ordered. ar2 20:03 IV Saline Lock ordered. ar2 20:03 Ondansetron 4 mg IVP once ordered. ar2 20:05 Amylase Ordered. EDMS 20:05 Basic Metabolic Profile Ordered. EDMS 20:05 CBC with Diff Ordered. EDMS 20:05 Lipase Ordered. EDMS 20:05 Liver Profile Ordered. EDMS 20:06 NOTHING BY MOUTH+DIET ordered. EDMS 20:42 ketorolac 30 mg IVP once ordered. ar2 20:52 Urinalysis Reviewed. ar2 20:52 CBC with Diff Reviewed. ar2 20:52 Amylase Reviewed. ar2 20:52 Basic Metabolic Profile Reviewed. ar2 20:52 Lipase Reviewed. ar2 20:52 Liver Profile Reviewed. ar2 20:53 NS 0.9% 1000 ml IV at bolus once ordered. ar2 20:53 CT ABD & PELVIS: No Contrast Ordered. EDMS 21:48 Financial registration complete. zo 22:25 [facility] Payment Agreement was scanned into [employer] and attached to record. zo 22:42 Dispense Urine Strainer ordered. ar2 22:47 HYDROcodone-acetaminophen 4 pack- 5 mg-325 mg 1 packets PO Per package directions; ar2 Dispense with patient. 1 po q4h prn for pain ordered. 22:48 CT ABD & PELVIS: No Contrast Reviewed. ar2 07/21 11:30 T-Sheet-- Draft Copy was scanned into [employer] and attached to record. gb 11:30 Radiology Report was scanned into [employer] and attached to record. gb Point of Care Testing: Urine : 07/20 20:16 hCG Reading: Negative; Control Reading: Positive; cln Ranges: Administered Medications: 20:24 Drug: Ondansetron 4 mg [ondansetron HCl 2 mg/mL intravenous solution (2 mL)] Route: ld5 IVP; Site: left antecubital; 23:05 Follow up: Response: Nausea is decreased ld5 20:48 Drug: ketorolac 30 mg [ketorolac 30 mg/mL (1 mL) injection solution (1 mL)] Route: IVP; ld5 Site: left antecubital; 23:00 Follow up: Response: Med's dispensed home ld5 21:11 Drug: NS 0.9% 1000 ml [sodium chloride 0.9 % intravenous solution] Route: IV; Rate: ld5 bolus; Site: left antecubital; 22:59 Follow up: IV Status: Completed infusion; IV Intake: 1000ml ld5 22:59 Drug: HYDROcodone-acetaminophen 4 pack- 1 packets [hydrocodone 5 mg-acetaminophen 325 ld5 mg tablet (1 tabs)] {Co-Signature: [facility] (Nolvia Hurst RN).} Route: PO; 22:59 Follow up: Response: Med's dispensed home ld5 Signatures: Dispatcher [employer] EDMS Oleg Siddiqui RN RN cz Mary Morton, Reg Reg gb Krishna Reilly Aaron, PA-C PA-C ar2 Alfreda Izaguirre RN RN [facility] Nolvia Hurst RN RN [facility] Nolvia Hurst RN [facility] The chart was reviewed and I authenticate all verbal orders and agree with the evaluation and treatment provided.Attachments: 22:25 [facility] Payment Agreement zo 07/21 11:30 T-Sheet-- Draft Copy gb Chart Complete MTDD
--- NOTE | 2016-07-23 11:36 | EDDOCDS ---
Physician Documentation [facility] Name: Chen Mortensen Age: 26 yrs Sex: Female : 1990 Arrival Date: 07/20/2016 Time: 19:40 Bed I5 / M5 Private MD: Madison Disposition: 07/20/16 22:44 Discharged to Home/Self Care. Impression: Hydronephrosis with renal and ureteral calculous obstruction - right 4mm UPJ stone with mild hydronephrosis. - Condition is Stable. - Discharge Instructions: Kidney Stones. - Prescriptions for Ibuprofen 800 mg Oral Tablet - take 1 tablet by ORAL route every 8 hours As needed take with food; 30 tablet. [place] 5- 325 mg Oral Tablet - take 1 tablet by ORAL route every 6 hours As needed MDD: 4 tabs; 16 tablet. Flomax 0.4 mg Oral Capsule, Sust. Release 24 hr - take 1 capsule by ORAL route once daily 1/2 hour following the same meal each day; 15 capsule. ZOFRAN ODT 4 mg Oral - dissolve 1 tablet by ORAL route every 8 hours As needed do not chew, do not swallow whole; 10 tablet. - Medication Reconciliation, Local Pharmacy Hours form. - Follow up: Joycelyn Nunn MD; When: Call to arrange an appointment; Reason: Recheck today's complaints, Continuance of care. Follow up: Emergency Department; When: As needed; Reason: Worsening of conditions. - Problem is new. - Symptoms have improved. - Notes: call saturday for follow up appointment. drink plenty of fluids Historical: - Allergies: No known drug Allergies; - Home Meds: 1. control - PMHx: none; - PSHx: ; - Social history: Smoking status: Patient states was never smoker of tobacco. No barriers to communication noted, The patient speaks fluent Serbian, Speaks appropriately for age. - Family history: Not pertinent. - : The pt / caregiver states he / she is not on anticoagulants. Home medication list is obtained from the patient. - Exposure Risk Screening:: None identified. 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 11 in. (149.86 cm) (R); Pain 9/10; 23:05 BP 112 / 71; Pulse 74; Resp 16; Temp 97.8; Pulse Ox 100% on R/A; Pain 2/10; ld5 19:42 Body Mass Index 23.83 (53.52 kg, 149.86 cm) gr2 MDM: 19:57 UCG by Nursing ordered. cz 19:58 Urinalysis Ordered. EDMS 19:58 Urine Culture Ordered. EDMS 20:03 Undress patient appropriately for examination ordered. ar2 20:03 IV Saline Lock ordered. ar2 20:03 Ondansetron 4 mg IVP once ordered. ar2 20:05 Amylase Ordered. EDMS 20:05 Basic Metabolic Profile Ordered. EDMS 20:05 CBC with Diff Ordered. EDMS 20:05 Lipase Ordered. EDMS 20:05 Liver Profile Ordered. EDMS 20:06 NOTHING BY MOUTH+DIET ordered. EDMS 20:42 ketorolac 30 mg IVP once ordered. ar2 20:52 Urinalysis Reviewed. ar2 20:52 CBC with Diff Reviewed. ar2 20:52 Amylase Reviewed. ar2 20:52 Basic Metabolic Profile Reviewed. ar2 20:52 Lipase Reviewed. ar2 20:52 Liver Profile Reviewed. ar2 20:53 NS 0.9% 1000 ml IV at bolus once ordered. ar2 20:53 CT ABD & PELVIS: No Contrast Ordered. EDMS 21:48 Financial registration complete. zo 22:25 [facility] [place] Payment Agreement was scanned into IntooBR and attached to record. zo 22:42 Dispense Urine Strainer ordered. ar2 22:47 HYDROcodone-acetaminophen 4 pack- 5 mg-325 mg 1 packets PO Per package directions; ar2 Dispense with patient. 1 po q4h prn for pain ordered. 22:48 CT ABD & PELVIS: No Contrast Reviewed. ar2 07/21 11:30 T-Sheet-- Draft Copy was scanned into IntooBR and attached to record. gb 11:30 Radiology Report was scanned into IntooBR and attached to record. gb Point of Care Testing: Urine : 07/20 20:16 hCG Reading: Negative; Control Reading: Positive; cln Ranges: Administered Medications: 20:24 Drug: Ondansetron 4 mg [ondansetron HCl 2 mg/mL intravenous solution (2 mL)] Route: ld5 IVP; Site: left antecubital; 23:05 Follow up: Response: Nausea is decreased ld5 20:48 Drug: ketorolac 30 mg [ketorolac 30 mg/mL (1 mL) injection solution (1 mL)] Route: IVP; ld5 Site: left antecubital; 23:00 Follow up: Response: Med's dispensed home ld5 21:11 Drug: NS 0.9% 1000 ml [sodium chloride 0.9 % intravenous solution] Route: IV; Rate: ld5 bolus; Site: left antecubital; 22:59 Follow up: IV Status: Completed infusion; IV Intake: 1000ml ld5 22:59 Drug: HYDROcodone-acetaminophen 4 pack- 1 packets [hydrocodone 5 mg-acetaminophen 325 ld5 mg tablet (1 tabs)] {Co-Signature: [facility] (Nolvia Hurst RN).} Route: PO; 22:59 Follow up: Response: Med's dispensed home ld5 Signatures: Dispatcher Med[employer] EDMS Oleg Siddiqui RN RN cz Mary Morton, Reg Reg gb Krishna Reilly Aaron, PA-C PA-C ar2 Alfreda Izaguirre RN RN [facility] Nolvia Hurst RN RN [facility] Nolvia Hurst RN [facility] The chart was reviewed and I authenticate all verbal orders and agree with the evaluation and treatment provided.Attachments: 22:25 [facility] Payment Agreement zo 07/21 11:30 T-Sheet-- Draft Copy gb Chart Complete MTDD
--- NOTE | 2016-07-23 11:39 | EDDOCDS ---
Nurse's Notes [facility] Name: Chen Mortensen Age: 26 yrs Sex: Female : 1990 Arrival Date: 07/20/2016 Time: 19:40 Bed I5 / M5 Private MD: Madison Diagnosis: Hydronephrosis with renal and ureteral calculous obstruction-right 4mm UPJ stone with mild hydronephrosis Presentation: 07/20 19:50 Presenting complaint: Patient states: stomach pain since earlier today pain back side cz and worse now pt denies UTI symptoms. Acute neurological deficits are not present. Mechanism of Injury: No Mechanism of Injury. Adult Sepsis Screening: The patient does not have new or worsening altered mentation. Patient's respiratory rate is less than 22. Systolic blood pressure is greater than 100. Patient has a qSOFA score of 0- Negative Sepsis Screen. Suicide/Homicide risk assessment- the patient denies having any suicidal and/or homicidal ideations and does not present with any other emotional, behavioral or mental health complaints. Status: The patient is a dependent. Transition of care: patient was not received from another setting of care. 19:50 Acuity: JULIA Level 3 cz 19:50 Method Of Arrival: Walkin/Carried/Asstd cz Triage Assessment: 19:52 General: Appears uncomfortable. Pain: Location: back Pain currently is 8 out of 10 on a cz pain scale. Pt Declines HIV testing. 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 control - PMHx: none; - PSHx: ; - Social history: Smoking status: Patient states was never smoker of tobacco. No barriers to communication noted, The patient speaks fluent Danish, Speaks appropriately for age. - Family history: Not pertinent. - : The pt / caregiver states he / she is not on anticoagulants. Home medication list is obtained from the patient. - Exposure Risk Screening:: None identified. Screenin:29 Screening information is obtained from the patient. Fall risk: No risks identified. cjh Assistance ADL's: requires no assistance with activities of daily living. Abuse/DV Screen: The patient / caregiver reports he/she is: not in a situation that causes fear, pain or injury. Nutritional screening: No deficits noted. Advance Directives: There is no active DNR order. home support is adequate. Assessment: 20:29 General: Appears in no apparent distress, comfortable, Behavior is appropriate for age, cjh cooperative. Pain: Location: posterior aspect of right lateral abdomen and anterior aspect of right lateral abdomen Pain currently is 8 out of 10 on a pain scale. Respiratory: Airway is patent Respiratory effort is even, unlabored, Respiratory pattern is regular, symmetrical. GI: Abdomen is non- distended Bowel sounds present X 4 quads. Abd is soft and non tender X 4 quads. Musculoskeletal: Range of motion intact in all extremities. 21:10 General: Pt laying in bed talking on phone. States "I feel so much better". Bolus ld5 started per orders. Will continue to monitor. 21:53 General: returned from CT, tolerated well, awaiting results, friends at bedside, will [facility] continue to monitor. 22:36 General: Pt ambulated to bathroom. Tolerated well. Reports minimal pain. Resting ld5 comfortably in bed. Friends at bedside. Will continue to monitor. 23:05 General: Appears in no apparent distress, Behavior is cooperative. Pain: Pain currently ld5 is 2 out of 10 on a pain scale. Neurological: Level of Consciousness is awake, alert. Respiratory: Airway is patent Respiratory effort is even, unlabored. Vital Signs: 19:42 BP 107 / 71; Pulse 72; Resp 18 S; Temp 97.9(O); Pulse Ox 99% on R/A; Weight 53.52 kg gr2 (R); Height 4 ft. 11 in. (149.86 cm) (R); Pain 9/10; 23:05 BP 112 / 71; Pulse 74; Resp 16; Temp 97.8; Pulse Ox 100% on R/A; Pain 2/10; ld5 19:42 Body Mass Index 23.83 (53.52 kg, 149.86 cm) gr2 Vitals: 19:42 Log In Time: July 20, 2016 at 19:42. gr2 ED Course: 19:42 Patient visited by Albina Brock. gr2 19:42 Madison is Private Physician. gr2 19:42 Patient moved to Waiting gr2 19:44 Patient visited by Albina Brock. gr2 19:44 Patient moved to Pre RCE gr2 19:51 Triage Initiated cz 19:55 [facility]. ar2 19:55 Patient moved to Triage 2 cz 19:56 Matthew Posada DO is Attending Physician. ar2 19:56 Patient visited by Trino Lion PA-C. ar2 20:06 Patient moved to I5 / M5 cz 20:16 Patient visited by Latha Shah PCA. cln 20:16 Urinalysis Sent. cln 20:16 Urine Culture Sent. cln 20:29 The patient / caregiver is instructed regarding the plan of care and ED course. [facility] 20:29 Inserted saline lock: 20 gauge in left antecubital area and blood collected. No [facility] procedures done that require assistance. Labs drawn. (by ED staff). Sent per order to lab. 20:48 Patient visited by Alfreda Izaguirre RN. ld5 21:11 Patient visited by Alfreda Izaguirre RN. ld5 21:54 Patient visited by Nolvia Hurst RN. cjh 22:12 CT ABD & PELVIS: No Contrast Returned. EDMS 22:25 [facility] Payment Agreement was scanned into Phase Eight and attached to record. zo 22:37 Patient visited by Alfreda Izaguirre RN. ld5 22:43 Joycelyn Nunn MD is Referral Physician. ar2 23:05 Discontinued lock intact, bleeding controlled, pressure dressing applied, No ld5 redness/swelling at site. 23:07 Patient visited by Alfreda Izaguirre RN. ld5 07/21 11:30 T-Sheet-- Draft Copy was scanned into Phase Eight and attached to record. gb 11:30 Radiology Report was scanned into Phase Eight and attached to record. gb Administered Medications: 07/20 20:24 Drug: Ondansetron 4 mg [ondansetron HCl 2 mg/mL intravenous solution (2 mL)] Route: ld5 IVP; Site: left antecubital; 23:05 Follow up: Response: Nausea is decreased ld5 20:48 Drug: ketorolac 30 mg [ketorolac 30 mg/mL (1 mL) injection solution (1 mL)] Route: IVP; ld5 Site: left antecubital; 23:00 Follow up: Response: Med's dispensed home ld5 21:11 Drug: NS 0.9% 1000 ml [sodium chloride 0.9 % intravenous solution] Route: IV; Rate: ld5 bolus; Site: left antecubital; 22:59 Follow up: IV Status: Completed infusion; IV Intake: 1000ml ld5 22:59 Drug: HYDROcodone-acetaminophen 4 pack- 1 packets [hydrocodone 5 mg-acetaminophen 325 ld5 mg tablet (1 tabs)] {Co-Signature: [facility] (Nolvia Hurst RN).} Route: PO; 22:59 Follow up: Response: Med's dispensed home ld5 Point of Care Testing: Urine : 20:16 hCG Reading: Negative; Control Reading: Positive; cln Ranges: Intake: 22:59 IV: 1000.00ml; Total: 1000.00ml. ld5 Order Results: Lab Order: Urine Culture; SPEC'M 07/20/16 19:58 Test: URINE CULTURE; Value: <EXTERNAL COMMENT eCWMed> FULL REPORT IN LAB NOTES (eCW and Medent).; Status: F Test: URINE CULTURE; Value: ORGANISM 1: PROTEUS MIRABILIS; Status: F Test: URINE CULTURE; Value: PROTEUS MIRABILIS; Status: F Test: URINE CULTURE; Value: COLONY COUNT CFU/ml >100,000; Status: F Test: URINE CULTURE; Value: GRAM NEG SENSI - VITEK 80; Status: F Test: URINE CULTURE; Value: Method: VIT2; Status: F Test: URINE CULTURE; Value: TRIMETHOPRIM/SULFAMETHOXAZOLE >=320 R; Status: F Test: URINE CULTURE; Value: AMPICILLIN <=2 S; Status: F Test: URINE CULTURE; Value: GENTAMICIN <=1 S; Status: F Test: URINE CULTURE; Value: NITROFURANTOIN 128 R; Status: F Test: URINE CULTURE; Value: CEFAZOLIN <=4 S; Status: F Test: URINE CULTURE; Value: LEVOFLOXACIN <=0.12 S; Status: F Test: URINE CULTURE; Value: TOBRAMYCIN <=1 S; Status: F Test: URINE CULTURE; Value: CEFTRIAXONE <=1 S; Status: F Test: URINE CULTURE; Value: CEFTAZIDIME <=1 S; Status: F Test: URINE CULTURE; Value: AMPICILLIN/SULBACTAM <=2 S; Status: F Test: URINE CULTURE; Value: PIPERACILLIN/TAZOBACTAM <=4 S; Status: F Test: URINE CULTURE; Value: AZTREONAM <=1 S; Status: F Test: URINE CULTURE; Value: ERTAPENEM <=0.5 S; Status: F Test: URINE CULTURE; Value: MEROPENEM <=0.25 S; Status: F Test: URINE CULTURE; Value: TIGECYCLINE 4 R; Status: F Test: URINE CULTURE; Value: CEFEPIME <=1 S; Status: F Lab Order: Urinalysis; SPEC'M 07/20/16 19:58 Test: APPEARANCE, URINE; Value: CLEAR; Range: CLEAR; Status: F Test: COLOR, URINE; Value: YELLOW; Range: YELLOW; Status: F Test: PH,URINE; Value: 8.0; Range: 5.0-9.0; Units: UNITS; Status: F Test: SPECIFIC GRAVITY URINE AUTO; Value: 1.018; Range: 1.002-1.035; Status: F Test: PROTEIN, URINE AUTO; Value: 1+; Range: NEGATIVE; Abnormal: Above high normal; Units: mg/dL; Status: F Test: GLUCOSE, URINE (UA) AUTO; Value: NEGATIVE; Range: NEGATIVE; Units: mg/dL; Status: F Test: KETONE, URINE AUTO; Value: NEGATIVE; Range: NEGATIVE; Units: mg/dL; Status: F Test: UROBILINOGEN, URINE AUTO; Value: 0.2; Range: 0.0-2.0; Units: mg/dL; Status: F Test: BILIRUBIN, URINE AUTO; Value: NEGATIVE; Range: NEGATIVE; Status: F Test: NITRITE, URINE AUTO; Value: NEGATIVE; Range: NEGATIVE; Status: F Test: LEUKOCYTE ESTERASE, URINE AUTO; Value: TRACE; Range: NEGATIVE; Abnormal: Above high normal; Status: F Test: BLOOD, URINE BLOOD; Value: 3+; Range: NEGATIVE; Abnormal: Above high normal; Status: F Test: WBC, URINE AUTO; Value: 13; Range: 0-3; Abnormal: Above high normal; Units: /HPF; Status: F Test: RBC, URINE AUTO; Value: TNTC; Range: 0-3; Abnormal: Above high normal; Units: /HPF; Status: F Test: BACTERIA, URINE AUTO; Value: 1+; Range: NEGATIVE; Abnormal: Above high normal; Status: F Test: SQUAMOUS EPITHELIAL CELL UR AU; Value: 1; Range: 0-6; Units: /HPF; Status: F Test: MUCUS, URINE; Value: SMALL; Range: NEGATIVE; Status: F Test: HYALINE CAST, URINE AUTO; Value: 0; Range: 0-1; Units: /LPF; Status: F Test: AMORPHOUS SEDIMENT; Value: SMALL; Range: NEGATIVE; Abnormal: Above high normal; Status: F Lab Order: Amylase; SPEC'07/20/16 20:19 Test: AMYLASE; Value: 65; Range: 25-115; Units: U/L; Status: F Lab Order: Basic Metabolic Profile; SPEC'07/20/16 20:19 Test: GLUCOSE, FASTING; Value: 87; Range: 70-105; Units: MG/DL; Status: F Test: BLOOD UREA NITROGEN; Value: 8; Range: 7-18; Units: MG/DL; Status: F Test: CREATININE FOR GFR; Value: 0.92; Range: 0.55-1.02; Units: MG/DL; Status: F Test: GLOMERULAR FILTRATION RATE; Value: > 60.0; Range: >60; Status: F Test: SODIUM LEVEL; Value: 142; Range: 136-145; Units: MEQ/L; Status: F Test: POTASSIUM SERUM; Value: 3.8; Range: 3.5-5.1; Units: MEQ/L; Status: F Test: CHLORIDE LEVEL; Value: 106; Range: 98-107; Units: MEQ/L; Status: F Test: CARBON DIOXIDE LEVEL; Value: 28; Range: 21-32; Units: MEQ/L; Status: F Test: ANION GAP; Value: 8; Range: 8-16; Units: MEQ/L; Status: F Test: CALCIUM LEVEL; Value: 9.0; Range: 8.5-10.1; Units: MG/DL; Status: F Test Note: ; Units are mL/min/1.73 m2 Chronic Kidney Disease Staging per NKF: Stage I & II GFR >=60 Normal to Mildly Decreased Stage III GFR 30-59 Moderately Decreased Stage IV GFR 15-29 Severely Decreased Stage V GFR <15 Very Little GFR Left ESRD GFR <15 on CHOPPED STRAND OPERATOR Lab Order: CBC with Diff; SPEC'07/20/16 20:19 Test: WHITE BLOOD COUNT; Value: 8.6; Range: 4.0-10.0; Units: K/mm3; Status: F Test: RED BLOOD COUNT; Value: 4.67; Range: 4.00-5.40; Units: M/mm3; Status: F Test: HEMOGLOBIN; Value: 13.8; Range: 12.0-16.0; Units: g/dl; Status: F Test: HEMATOCRIT; Value: 42.3; Range: 36.0-47.0; Units: %; Status: F Test: MEAN CORPUSCULAR VOLUME; Value: 90.5; Range: 80.0-96.0; Units: fl; Status: F Test: MEAN CORPUSCULAR HEMOGLOBIN; Value: 29.6; Range: 27.0-33.0; Units: pg; Status: F Test: MEAN CORPUSCULAR HGB CONC; Value: 32.8; Range: 32.0-36.5; Units: g/dl; Status: F Test: RED CELL DISTRIBUTION WIDTH; Value: 13.2; Range: 11.5-14.5; Units: %; Status: F Test: PLATELET COUNT, AUTOMATED; Value: 208; Range: 150-450; Units: k/mm3; Status: F Test: NEUTROPHILS %; Value: 61.4; Range: 36.0-66.0; Units: %; Status: F Test: LYMPH %; Value: 28.8; Range: 24.0-44.0; Units: %; Status: F Test: MONO %; Value: 5.1; Range: 0.0-5.0; Abnormal: Above high normal; Units: %; Status: F Test: EOS %; Value: 1.0; Range: 0.0-3.0; Units: %; Status: F Test: BASO %; Value: 0.5; Range: 0.0-1.0; Units: %; Status: F Test: LARGE UNSTAINED CELL %; Value: 3.0; Range: 0.0-4.0; Units: %; Status: F Test: NEUTROPHILS #; Value: 5.3; Range: 1.8-7.7; Units: K/mm3; Status: F Test: LYMPH #; Value: 2.5; Range: 1.5-6.5; Units: K/mm3; Status: F Test: MONO #; Value: 0.4; Range: 0.0-0.8; Units: K/mm3; Status: F Test: EOS #; Value: 0.1; Range: 0.0-0.50; Units: K/mm3; Status: F Test: BASO #; Value: 0.0; Range: 0.0-0.2; Units: K/mm3; Status: F Test: LARGE UNSTAINED CELL #; Value: 0.3; Range: 0.0-0.4; Units: K/mm3; Status: F Lab Order: Lipase; SPEC' 07/20/16 20:19 Test: LIPASE; Value: 96; Range: 73-393; Units: U/L; Status: F Lab Order: Liver Profile; SPEC' 07/20/16 20:19 Test: AST/SGOT; Value: 15; Range: 15-37; Units: U/L; Status: F Test: ALT/SGPT; Value: 20; Range: 12-78; Units: U/L; Status: F Test: ALKALINE PHOSPHATASE; Value: 66; Range: 45-117; Units: U/L; Status: F Test: BILIRUBIN,TOTAL; Value: 0.2; Range: 0.2-1.0; Units: MG/DL; Status: F Test: BILIRUBIN,DIRECT; Value: < 0.1; Range: 0.0-0.2; Units: MG/DL; Status: F Test: TOTAL PROTEIN; Value: 6.8; Range: 6.4-8.2; Units: GM/DL; Status: F Test: ALBUMIN; Value: 3.5; Range: 3.2-5.2; Units: GM/DL; Status: F Test: ALBUMIN/GLOBULIN RATIO; Value: 1.06; Range: 1.00-1.93; Status: F Radiology Order: CT ABD & PELVIS: No Contrast Test: CT ABD & PELVIS: No Contrast REASON FOR EXAMINATION: right renal colic; ; CT of the abdomen and pelvis without contrast; Clinical statement: Pain.; Technique: Multiple axial CT images were obtained from the base of the lungs to the floor of the pelv; is utilizing 5 mm axial slices without administration of contrast. Coronal and sagittal reconstructio; ns were also obtained.; No comparison is available.; Findings:; Chest: The visualized lung bases are clear.; Abdomen: The kidneys are normal in size bilaterally. There is moderate right-sided hydronephrosis cau; sed by a 4 mm obstructing stone at the right ureteropelvic junction. The liver, spleen, pancreas, gal; lbladder and adrenal glands are unremarkable. The aorta demonstrates normal caliber and contour. Ther; e is no abdominal lymphadenopathy or ascites.; Pelvis: The bowel is unremarkable, with no obstructive or inflammatory changes. The appendix is mary; l. The urinary bladder is within normal limits. There is no pelvic lymphadenopathy or ascites. The ot; her pelvic structures appear unremarkable.; Bones: There are no suspicious osseous abnormalities seen.; Impression: Mild right-sided hydronephrosis caused by a 4 mm obstructing stone at the right ureterope; lvic junction.; ; Outcome: 22:44 Discharge ordered by Provider. ar2 23:05 Discharge Assessment: Patient awake, alert and oriented x 3. No cognitive and/or ld5 functional deficits noted. Patient verbalized understanding of disposition instructions. patient administered narcotics - no. The following High Risk Discharge criteria are identified: None. Discharged to home ambulatory, with friend. Condition: stable. Discharge instructions given to patient, Instructed on discharge instructions, follow up and referral plans. medication usage, no driving heavy equipment, Demonstrated understanding of instructions, medications, Pt was receptive of discharge instructions/ teaching. Prescriptions given X 4. CT Study completed. Property :Personal belongings accompany Pt. 23:07 Patient left the ED. ld5 Addendum: 07/23/2016 10:39 Narrative: Urine culture results reviewed with Dr. Rondon and Rx written for Keflex kcs 500 mg po QID x 7 days. Message left for patient to call us concerning where she would like Rx called to. 11:33 Narrative: Patient called back and requests [facility] - Rx called in. kcs Signatures: Dispatcher [employer] EDCielo Cuenca RN RN Oleg Ovalles RN RN cz Mary Morton, Joselito Reg Krishna Chavez Aaron, PA-C PA-Donny ar2 Alfreda Izaguirre RN RN ld5 Nolvia Hurst,RN RN cj Albina Brock gr2 Alyssa, Latha, HEALTH OUTREACH WORKER HEALTH OUTREACH WORKER cln Nolvia Hurst RN [facility] Chart Complete MTDD
--- NOTE | 2016-07-23 11:39 | EDDOCDS ---
Physician Documentation [facility] Name: Chen Mortensen Age: 26 yrs Sex: Female : 1990 Arrival Date: 07/20/2016 Time: 19:40 Bed I5 / M5 Private MD: [place] Disposition: 07/20/16 22:44 Discharged to Home/Self Care. Impression: Hydronephrosis with renal and ureteral calculous obstruction - right 4mm UPJ stone with mild hydronephrosis. - Condition is Stable. - Discharge Instructions: Kidney Stones. - Prescriptions for Ibuprofen 800 mg Oral Tablet - take 1 tablet by ORAL route every 8 hours As needed take with food; 30 tablet. [place] 5- 325 mg Oral Tablet - take 1 tablet by ORAL route every 6 hours As needed MDD: 4 tabs; 16 tablet. Flomax 0.4 mg Oral Capsule, Sust. Release 24 hr - take 1 capsule by ORAL route once daily 1/2 hour following the same meal each day; 15 capsule. ZOFRAN ODT 4 mg Oral - dissolve 1 tablet by ORAL route every 8 hours As needed do not chew, do not swallow whole; 10 tablet. - Medication Reconciliation, Local Pharmacy Hours form. - Follow up: Joycelyn Nunn MD; When: Call to arrange an appointment; Reason: Recheck today's complaints, Continuance of care. Follow up: Emergency Department; When: As needed; Reason: Worsening of conditions. - Problem is new. - Symptoms have improved. - Notes: call saturday for follow up appointment. drink plenty of fluids Historical: - Allergies: No known drug Allergies; - Home Meds: 1. control - PMHx: none; - PSHx: ; - Social history: Smoking status: Patient states was never smoker of tobacco. No barriers to communication noted, The patient speaks fluent Croatian, Speaks appropriately for age. - Family history: Not pertinent. - : The pt / caregiver states he / she is not on anticoagulants. Home medication list is obtained from the patient. - Exposure Risk Screening:: None identified. 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 11 in. (149.86 cm) (R); Pain 9/10; 23:05 BP 112 / 71; Pulse 74; Resp 16; Temp 97.8; Pulse Ox 100% on R/A; Pain 2/10; ld5 19:42 Body Mass Index 23.83 (53.52 kg, 149.86 cm) gr2 MDM: 19:57 UCG by Nursing ordered. cz 19:58 Urinalysis Ordered. EDMS 19:58 Urine Culture Ordered. EDMS 20:03 Undress patient appropriately for examination ordered. ar2 20:03 IV Saline Lock ordered. ar2 20:03 Ondansetron 4 mg IVP once ordered. ar2 20:05 Amylase Ordered. EDMS 20:05 Basic Metabolic Profile Ordered. EDMS 20:05 CBC with Diff Ordered. EDMS 20:05 Lipase Ordered. EDMS 20:05 Liver Profile Ordered. EDMS 20:06 NOTHING BY MOUTH+DIET ordered. EDMS 20:42 ketorolac 30 mg IVP once ordered. ar2 20:52 Urinalysis Reviewed. ar2 20:52 CBC with Diff Reviewed. ar2 20:52 Amylase Reviewed. ar2 20:52 Basic Metabolic Profile Reviewed. ar2 20:52 Lipase Reviewed. ar2 20:52 Liver Profile Reviewed. ar2 20:53 NS 0.9% 1000 ml IV at bolus once ordered. ar2 20:53 CT ABD & PELVIS: No Contrast Ordered. EDMS 21:48 Financial registration complete. zo 22:25 [facility] [place] Payment Agreement was scanned into [employer] and attached to record. zo 22:42 Dispense Urine Strainer ordered. ar2 22:47 HYDROcodone-acetaminophen 4 pack- 5 mg-325 mg 1 packets PO Per package directions; ar2 Dispense with patient. 1 po q4h prn for pain ordered. 22:48 CT ABD & PELVIS: No Contrast Reviewed. ar2 07/21 11:30 T-Sheet-- Draft Copy was scanned into [employer] and attached to record. gb 11:30 Radiology Report was scanned into [employer] and attached to record. gb Point of Care Testing: Urine : 07/20 20:16 hCG Reading: Negative; Control Reading: Positive; cln Ranges: Administered Medications: 20:24 Drug: Ondansetron 4 mg [ondansetron HCl 2 mg/mL intravenous solution (2 mL)] Route: ld5 IVP; Site: left antecubital; 23:05 Follow up: Response: Nausea is decreased ld5 20:48 Drug: ketorolac 30 mg [ketorolac 30 mg/mL (1 mL) injection solution (1 mL)] Route: IVP; ld5 Site: left antecubital; 23:00 Follow up: Response: Med's dispensed home ld5 21:11 Drug: NS 0.9% 1000 ml [sodium chloride 0.9 % intravenous solution] Route: IV; Rate: ld5 bolus; Site: left antecubital; 22:59 Follow up: IV Status: Completed infusion; IV Intake: 1000ml ld5 22:59 Drug: HYDROcodone-acetaminophen 4 pack- 1 packets [hydrocodone 5 mg-acetaminophen 325 ld5 mg tablet (1 tabs)] {Co-Signature: [facility] (Nolvia Hurst RN).} Route: PO; 22:59 Follow up: Response: Med's dispensed home ld5 Signatures: Dispatcher [employer] EDMS Oleg Siddiqui RN RN cz Mary Morton, Reg Reg gb Krishna Reilly Aaron, PA-C PA-C ar2 Alfreda Izaguirre RN RN [facility] Nolvia Hurst RN RN [facility] Nolvia Hurst RN [facility] The chart was reviewed and I authenticate all verbal orders and agree with the evaluation and treatment provided.Attachments: 22:25 [facility] Payment Agreement zo 07/21 11:30 T-Sheet-- Draft Copy gb Chart Complete MTDD
--- NOTE | 2016-07-23 11:39 | EDDOCDS ---
Physician Documentation [facility] Name: Chen Mortensen Age: 26 yrs Sex: Female : 1990 Arrival Date: 07/20/2016 Time: 19:40 Bed I5 / M5 Private MD: [place] Disposition: 07/20/16 22:44 Discharged to Home/Self Care. Impression: Hydronephrosis with renal and ureteral calculous obstruction - right 4mm UPJ stone with mild hydronephrosis. - Condition is Stable. - Discharge Instructions: Kidney Stones. - Prescriptions for Ibuprofen 800 mg Oral Tablet - take 1 tablet by ORAL route every 8 hours As needed take with food; 30 tablet. [place] 5- 325 mg Oral Tablet - take 1 tablet by ORAL route every 6 hours As needed MDD: 4 tabs; 16 tablet. Flomax 0.4 mg Oral Capsule, Sust. Release 24 hr - take 1 capsule by ORAL route once daily 1/2 hour following the same meal each day; 15 capsule. ZOFRAN ODT 4 mg Oral - dissolve 1 tablet by ORAL route every 8 hours As needed do not chew, do not swallow whole; 10 tablet. - Medication Reconciliation, Local Pharmacy Hours form. - Follow up: Joycelyn Nunn MD; When: Call to arrange an appointment; Reason: Recheck today's complaints, Continuance of care. Follow up: Emergency Department; When: As needed; Reason: Worsening of conditions. - Problem is new. - Symptoms have improved. - Notes: call saturday for follow up appointment. drink plenty of fluids Historical: - Allergies: No known drug Allergies; - Home Meds: 1. control - PMHx: none; - PSHx: ; - Social history: Smoking status: Patient states was never smoker of tobacco. No barriers to communication noted, The patient speaks fluent Kazakh, Speaks appropriately for age. - Family history: Not pertinent. - : The pt / caregiver states he / she is not on anticoagulants. Home medication list is obtained from the patient. - Exposure Risk Screening:: None identified. 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 11 in. (149.86 cm) (R); Pain 9/10; 23:05 BP 112 / 71; Pulse 74; Resp 16; Temp 97.8; Pulse Ox 100% on R/A; Pain 2/10; ld5 19:42 Body Mass Index 23.83 (53.52 kg, 149.86 cm) gr2 MDM: 19:57 UCG by Nursing ordered. cz 19:58 Urinalysis Ordered. EDMS 19:58 Urine Culture Ordered. EDMS 20:03 Undress patient appropriately for examination ordered. ar2 20:03 IV Saline Lock ordered. ar2 20:03 Ondansetron 4 mg IVP once ordered. ar2 20:05 Amylase Ordered. EDMS 20:05 Basic Metabolic Profile Ordered. EDMS 20:05 CBC with Diff Ordered. EDMS 20:05 Lipase Ordered. EDMS 20:05 Liver Profile Ordered. EDMS 20:06 NOTHING BY MOUTH+DIET ordered. EDMS 20:42 ketorolac 30 mg IVP once ordered. ar2 20:52 Urinalysis Reviewed. ar2 20:52 CBC with Diff Reviewed. ar2 20:52 Amylase Reviewed. ar2 20:52 Basic Metabolic Profile Reviewed. ar2 20:52 Lipase Reviewed. ar2 20:52 Liver Profile Reviewed. ar2 20:53 NS 0.9% 1000 ml IV at bolus once ordered. ar2 20:53 CT ABD & PELVIS: No Contrast Ordered. EDMS 21:48 Financial registration complete. zo 22:25 [facility] [place] Payment Agreement was scanned into [employer] and attached to record. zo 22:42 Dispense Urine Strainer ordered. ar2 22:47 HYDROcodone-acetaminophen 4 pack- 5 mg-325 mg 1 packets PO Per package directions; ar2 Dispense with patient. 1 po q4h prn for pain ordered. 22:48 CT ABD & PELVIS: No Contrast Reviewed. ar2 07/21 11:30 T-Sheet-- Draft Copy was scanned into [employer] and attached to record. gb 11:30 Radiology Report was scanned into [employer] and attached to record. gb Point of Care Testing: Urine : 07/20 20:16 hCG Reading: Negative; Control Reading: Positive; cln Ranges: Administered Medications: 20:24 Drug: Ondansetron 4 mg [ondansetron HCl 2 mg/mL intravenous solution (2 mL)] Route: ld5 IVP; Site: left antecubital; 23:05 Follow up: Response: Nausea is decreased ld5 20:48 Drug: ketorolac 30 mg [ketorolac 30 mg/mL (1 mL) injection solution (1 mL)] Route: IVP; ld5 Site: left antecubital; 23:00 Follow up: Response: Med's dispensed home ld5 21:11 Drug: NS 0.9% 1000 ml [sodium chloride 0.9 % intravenous solution] Route: IV; Rate: ld5 bolus; Site: left antecubital; 22:59 Follow up: IV Status: Completed infusion; IV Intake: 1000ml ld5 22:59 Drug: HYDROcodone-acetaminophen 4 pack- 1 packets [hydrocodone 5 mg-acetaminophen 325 ld5 mg tablet (1 tabs)] {Co-Signature: [facility] (Nolvia Hurst RN).} Route: PO; 22:59 Follow up: Response: Med's dispensed home ld5 Signatures: Dispatcher [employer] EDMS Oleg Siddiqui RN RN cz Mary Morton, Reg Reg gb Krishna Reilly Aaron, PA-C PA-C ar2 Alfreda Izaguirre RN RN [facility] Nolvia Hurst RN RN [facility] Nolvia Hurst RN [facility] The chart was reviewed and I authenticate all verbal orders and agree with the evaluation and treatment provided.Attachments: 22:25 [facility] Payment Agreement zo 07/21 11:30 T-Sheet-- Draft Copy gb Chart Complete MTDD
== END 2016-07-20 23:07 | disposition home or self-care (01) ==
LOC: M ED 19:40
DX: N13.1 Hydronephrosis with ureteral stricture, not elsewhere classified (principal)
CPT/HCPCS: 36415; 74176; 80048; 80076; 81001; 81025; 82150; 83690; 85025; 87088; 87186; 96361; 96374; 96375; 99284; J1885; J2405

== ENCOUNTER → 2016-08-01 | Outpatient (REF) | payer OTHER | LOC: M SMT 16:57 | PROVIDERS: ATTEND Nurse Practitioner Family | DX: R35.0 Frequency of micturition (principal) ==

== ENCOUNTER → 2016-10-16 | Outpatient (REF) | payer OTHER | LOC: M LAB REF 13:13 | PROVIDERS: ATTEND Advanced Practice Midwife | DX: Z11.3 Encounter for screening for infections with a predominantly sexual mode of transmission (principal) ==

== ENCOUNTER 2016-11-16 09:03 | Observation (INO) | payer OTHER ==
[~2016-11-16] VITALS: Ht 149.9 cm; Wt 52.8 kg
[2016-11-16] MEDS ORDERED: TRAM1CAP15 PO (09:13)
[2016-11-16 10:14] LABS: CONTROL LINE UCG INT CTR LINE PRESENT
[2016-11-16] MEDS ORDERED: cefTRIAXone SOD 1 GM in D5W MINI-BAG PLUS 50 ML IV ONE (11:15)
[2016-11-16 11:49] LABS: ANION GAP 3 MEQ/L (8-16); BLOOD UREA NITROGEN 10 MG/DL (7-18); CALCIUM LEVEL 8.7 MG/DL (8.5-10.1); CARBON DIOXIDE LEVEL 27 MEQ/L (21-32); CHLORIDE LEVEL 105 MEQ/L (98-107); CREATININE FOR GFR 0.71 MG/DL (0.55-1.02); GLOMERULAR FILTRATION RATE > 60.0 (>60); GLUCOSE, FASTING 83 MG/DL (70-105); POTASSIUM SERUM 3.6 MEQ/L (3.5-5.1); SODIUM LEVEL 135 MEQ/L (136-145)
[2016-11-16 12:04] LABS: BASO # 0.1 K/mm3 (0.0-0.2); BASO % 0.5 % (0.0-1.0); EOS # 0.1 K/mm3 (0.0-0.50); EOS % 0.7 % (0.0-3.0); LARGE UNSTAINED CELL # 0.2 K/mm3 (0.0-0.4); LARGE UNSTAINED CELL % 1.4 % (0.0-4.0); LYMPH # 3.1 K/mm3 (1.5-6.5); LYMPH % 21.6 % (24.0-44.0); MEAN CORPUSCULAR HGB CONC 33.8 g/dl (32.0-36.5); MEAN CORPUSCULAR VOLUME 91.7 fl (80.0-96.0); MONO # 0.6 K/mm3 (0.0-0.8); MONO % 4.3 % (0.0-5.0); NEUTROPHILS # 9.6 K/mm3 (1.8-7.7); NEUTROPHILS % 71.4 % (36.0-66.0); PLATELET COUNT, AUTOMATED 204 k/mm3 (150-450); RED CELL DISTRIBUTION WIDTH 12.9 % (11.5-14.5); WHITE BLOOD COUNT 13.5 K/mm3 (4.0-10.0)
[2016-11-16] MEDS ORDERED: KETOROLAC 30 MG/ML VIAL (J1885) IV ONE (15:00)
[2016-11-16] MEDS ORDERED: MICR1TAB16 PO (17:22)
[2016-11-16] MEDS ORDERED: TRAM50TA2 PO (17:22)
[2016-11-16] MEDS ORDERED: ACETAMINOPHEN TAB 650MG DOSE (2X325MG) PO PRN (17:45)
[2016-11-16] MEDS ORDERED: ONDANSETRON 4MG/2ML VIAL (J2405) IV PRN (17:45)
[2016-11-16 20:30] VITALS: BP 120/74
[2016-11-16] MEDS: traMADol 50 MG TAB PO PRN (22:35)
[2016-11-17] MEDS ORDERED: NS 1,000 ML IV SCH (00:01)
[2016-11-17 05:00] VITALS: BP 108/59
[2016-11-17 06:34] LABS: MEAN CORPUSCULAR HEMOGLOBIN 30.5 pg (27.0-33.0); MEAN CORPUSCULAR HGB CONC 33.2 g/dl (32.0-36.5); MEAN CORPUSCULAR VOLUME 91.8 fl (80.0-96.0); WHITE BLOOD COUNT 7.9 K/mm3 (4.0-10.0)
[2016-11-17 06:46] LABS: ANION GAP 6 MEQ/L (8-16); BLOOD UREA NITROGEN 10 MG/DL (7-18); CALCIUM LEVEL 8.5 MG/DL (8.5-10.1); CARBON DIOXIDE LEVEL 25 MEQ/L (21-32); CHLORIDE LEVEL 109 MEQ/L (98-107); CREATININE FOR GFR 0.75 MG/DL (0.55-1.02); GLOMERULAR FILTRATION RATE > 60.0 (>60); GLUCOSE, FASTING 77 MG/DL (70-105); POTASSIUM SERUM 3.9 MEQ/L (3.5-5.1); SODIUM LEVEL 140 MEQ/L (136-145)
[2016-11-17 08:00] VITALS: BP 103/55
[2016-11-17] MEDS ORDERED: cefTRIAXone SOD 1 GM in D5W MINI-BAG PLUS 50 ML IV SCH (12:00)
[2016-11-17] MEDS ORDERED: CONRAY-60 60% 50ML VIAL (Q9961) As Ordered ONE (13:48)
[2016-11-17 14:00] VITALS: BP 129/75
[2016-11-17] MEDS ORDERED: PROPOFOL 200 MG/20 ML VIAL As Ordered ONE ×2 (14:48→15:12)
[2016-11-17] MEDS ORDERED: ONDANSETRON 4MG/2ML VIAL (J2405) As Ordered ONE (14:48)
[2016-11-17] MEDS ORDERED: dexameTHASONE 4 MG/ML 1ML VIAL (J1100) As Ordered ONE (14:48)
[2016-11-17] MEDS ORDERED: LIDOCAINE 2% INJ 100 MG/5 ML SDV (FOR ANES.) As Ordered ONE (14:48)
[2016-11-17] MEDS ORDERED: MIDAZOLAM INJ 2 MG/2 ML VIAL (J2250) As Ordered ONE (14:48)
[2016-11-17] MEDS ORDERED: fentaNYL 250 MCG/5 ML INJECTION (J3010) As Ordered ONE (14:48)
[2016-11-17] MEDS ORDERED: ePHEDrine SULFATE 25 MG/5 ML(5MG/ML) SYRINGE As Ordered ONE (14:49)
[2016-11-17] MEDS ORDERED: ONDANSETRON 4MG/2ML VIAL (J2405) IV PRN (15:45)
[2016-11-17] MEDS ORDERED: LR 1,000 ML IV SCH (15:45)
[2016-11-17] MEDS ORDERED: PERCOCET 5MG/325MG TAB PO PRN (15:45)
[2016-11-17] MEDS ORDERED: fentaNYL 100 MCG/2 ML INJECTION (J3010) IV PRN (15:45)
[2016-11-17] MEDS ORDERED: CEFD1CAP8 PO (15:50)
[2016-11-17] MEDS ORDERED: OXYB5TA PO (15:51)
[2016-11-17 16:15] VITALS: BP 138/79
[2016-11-17 16:45] VITALS: BP 122/68
[2016-11-17] MEDS: traMADol 50 MG TAB PO PRN (16:45)
[2016-11-17] MEDS ORDERED: oxyBUTYnin 5 MG TAB PO ONE (17:30)
== END 2016-11-17 17:40 | disposition home or self-care (01) ==
LOC: M ED 09:57 → M ED INP 17:38 → M PED 20:30
PROVIDERS: ADMIT Internal Medicine; ATTEND Internal Medicine
DX: N13.30 Unspecified hydronephrosis (principal); N20.1 Calculus of ureter; N39.0 Urinary tract infection, site not specified
CPT/HCPCS: 36415; 52356; 74000; 74420; 76775; 80048; 81001; 82360; 84703; 85025; 85027; 87040; 87086; 87088; 87186; 88300; 96365; 96374; 96375; 99284; C1726; C2617; J0696; J1100; J1885; J2250; J2405; J3010; Q9961

== ENCOUNTER → 2016-11-23 | Outpatient (REF) | payer OTHER ==
[~2016-11-23] MED LIST: CEFD1CAP8 PO; MICR1TAB16 PO; OXYB5TA PO; TRAM1CAP15 PO; TRAM50TA2 PO
== END ==
LOC: M LAB REF 15:44
PROVIDERS: ATTEND Physician Assistant Medical
DX: R39.11 Hesitancy of micturition (principal)

== ENCOUNTER 2016-12-01 16:33 | Emergency (ER) | payer OTHER ==
[~2016-12-01] VITALS: Ht 149.9 cm; Wt 52.2 kg
[~2016-12-01 16:33] MED LIST changes: -OXYB5TA PO; +OXYB5TAB10 PO
[2016-12-01] MEDS ORDERED: traMADol 50 MG TAB PO ONE (17:00)
[2016-12-01 17:32] LABS: MEAN CORPUSCULAR HEMOGLOBIN 30.9 pg (27.0-33.0); MEAN CORPUSCULAR HGB CONC 34.2 g/dl (32.0-36.5); MEAN CORPUSCULAR VOLUME 90.6 fl (80.0-96.0); RED CELL DISTRIBUTION WIDTH 12.7 % (11.5-14.5); WHITE BLOOD COUNT 14.6 K/mm3 (4.0-10.0)
[2016-12-01] MEDS ORDERED: TRAM50TA2 PO (17:35)
[2016-12-01] MEDS ORDERED: CIPR-249 PO (17:35)
[2016-12-01 17:43] VITALS: BP 127/77
== END 2016-12-01 17:46 | disposition home or self-care (01) ==
LOC: M ED 16:33
DX: N39.0 Urinary tract infection, site not specified (principal); N10 Acute pyelonephritis; R10.9 Unspecified abdominal pain

== ENCOUNTER 2017-08-04 09:27 | Emergency (ER) | payer OTHER, SELFPAY ==
[2017-08-04 10:18] LABS: BASO % 0.4 % (0.0-1.0); EOS # 0.1 10^3/uL (0.0-0.50); EOS % 0.7 % (0.0-3.0); HEMATOCRIT 40.4 % (36.0-47.0); HEMOGLOBIN 13.5 g/dl (12.0-16.0); IMMATURE GRANULOCYTE % 0.3 % (0-3.0); LYMPH # 1.8 10^3/uL (1.5-6.5); LYMPH % 15.7 % (24.0-44.0); MEAN CORPUSCULAR HEMOGLOBIN 29.8 pg (27.0-33.0); MEAN CORPUSCULAR HGB CONC 33.4 g/dl (32.0-36.5); MEAN CORPUSCULAR VOLUME 89.2 fl (80.0-96.0); MONO # 1.2 10^3/uL (0.0-0.8); MONO % 10.9 % (0.0-5.0); NEUTROPHILS # 8.2 10^3/uL (1.8-7.7); PLATELET COUNT, AUTOMATED 201 10^3/uL (150-450); RED BLOOD COUNT 4.53 10^6/uL (4.00-5.40); RED CELL DISTRIBUTION WIDTH 13.6 % (11.5-14.5); WHITE BLOOD COUNT 11.4 10^3/uL (4.0-10.0)
== END 2017-08-04 10:59 | disposition home or self-care (01) ==
LOC: M ED 09:27
DX: J02.0 Streptococcal pharyngitis (principal); Z98.890 Other specified postprocedural states
CPT/HCPCS: 85025

== ENCOUNTER → 2017-08-14 | Outpatient (REF) | payer OTHER ==
[2017-08-14 18:15] LABS: APPEARANCE, URINE CLEAR (CLEAR); BACTERIA, URINE AUTO 1+ (NEGATIVE); BILIRUBIN, URINE AUTO NEGATIVE (NEGATIVE); BLOOD, URINE BLOOD NEGATIVE (NEGATIVE); COLOR, URINE YELLOW (YELLOW); GLUCOSE, URINE (UA) AUTO NEGATIVE (NEGATIVE); KETONE, URINE AUTO NEGATIVE (NEGATIVE); LEUKOCYTE ESTERASE, URINE AUTO NEGATIVE (NEGATIVE); MUCUS, URINE SMALL (NEGATIVE); NITRITE, URINE AUTO POSITIVE (NEGATIVE); PROTEIN, URINE AUTO NEGATIVE (NEGATIVE); RBC, URINE AUTO 0 /HPF (0-3); SPECIFIC GRAVITY URINE AUTO 1.017 (1.002-1.035); SQUAMOUS EPITHELIAL CELL UR AU 8 /HPF (0-6); UROBILINOGEN, URINE AUTO 0.2 mg/dL (0.0-2.0); WBC, URINE AUTO 1 /HPF (0-3)
== END ==
LOC: M LAB REF 16:56
DX: B37.3 Candidiasis of vulva and vagina (principal)
CPT/HCPCS: 81001

== ENCOUNTER 2017-09-19 10:14 | Emergency (ER) | payer OTHER | END 2017-09-19 11:45 | disposition left against medical advice (07) | LOC: M ED 10:14 | DX: Z53.21 Procedure and treatment not carried out due to patient leaving prior to being seen by health care provider (principal) | CPT/HCPCS: 99281 ==

== ENCOUNTER → 2017-10-16 | Outpatient (CLI) | payer OTHER ==
[2017-10-16 14:09] LABS: LUTEINIZING HORMONE 5.4 mIU/mL
[2017-10-16 14:10] LABS: FOLLICLE STIMULATING HORMONE 6.1 mIU/mL
== END ==
LOC: M SMT 10:38
DX: Z31.61 Procreative counseling and advice using natural family planning (principal)

== ENCOUNTER → 2017-11-04 | Outpatient (CLI) | payer OTHER ==
[2017-11-04 16:11] LABS: PROGESTERONE 0.4 NG/ML
[2017-11-04 16:12] LABS: ESTRADIOL 47.2 PG/ML; PROLACTIN 4.7 NG/ML
== END ==
LOC: M SMT 12:58
DX: Z31.61 Procreative counseling and advice using natural family planning (principal)